=== PATIENT | female | born 1940 | race Caucasian/White ===

== ENCOUNTER 2016-04-08 14:44 | Inpatient (IN) | payer MEDICARE, BC ==
[~2016-04-08] VITALS: Ht 172.7 cm; Wt 129.7 kg
[2016-04-08] VITALS (9 sets, daily range): BP systolic 101–213; BP diastolic 51–99; PULSE 80–89; RESP 20–28; TEMP 100.4–101.2; O2SAT 82–97
[~2016-04-08 14:44] MED LIST: ALLO300T2 PO; CELE200C PO; CLOP75 PO; DIGO0.25 PO; LANTUS2P SC; LESC80TA PO; LISI-357 PO; LOPR100T PO; MIRA0.5T PO; SMZ-800T PO; TORS1TAB12 PO; VICT18IN SQ; WARF3TAB PO; Z.0.OXYGEN INH
[2016-04-08] MEDS ORDERED: SODIUM CHLORIDE 0.9% FLUSH 5 ML FLUSH IVF PRN ×2 (15:00→18:15)
[2016-04-08] MEDS ORDERED: NITROGLYCERIN 2% OINT 1 GM PACKET TOP ONE (15:15)
--- NOTE | 2016-04-08 15:37 | PD ---
HPI Chief Complaint: Dizziness Time Seen by Provider: 15:34 Travel History International Travel<30 days: No Contact w/Intl Traveler<30days: No Traveled to known affect area: No History of Present Illness HPI Patient doesn't complain of shortness of breath that began shortly after getting home from her doctor's office today. Patient she was seen for a regular checkup. This worsened vomit once. Patient denies any diaphoresis, headache, numbness tingling anywhere, abdominal pain, or back pain. Patient denies anything making it better or worse. PFSH Past Medical History Cancer: No Cardiovascular Problems: Yes (CHF) High Cholesterol: Yes Chest Pain: No Diabetes: Yes Deep Vein Thrombosis: Yes Gastrointestinal Disorders: No Glaucoma: No Hepatitis: No Hiatal Hernia: Yes Hypertension: Yes Respiratory: Yes (SLEEP APNEA) Integumentary: No Thyroid Disease: No Menopausal: Yes Past Surgical History Cholecystectomy: Yes Thoracic Surgery: No Social History Alcohol Use: No Tobacco Use: No Allergies-Medications (Allergen,Severity, Reaction): Coded Allergies: Mercurial Derivatives (Verified Allergy, Severe, 03/12/14) Thorazine (Verified Allergy, Severe, 03/12/14) Penicillin (Verified Allergy, Intermediate, Rash, 03/12/14) Reported Meds & Prescriptions Reported Meds & Active Scripts Active Reported Celebrex (Celecoxib) 200 Mg Cap 200 Mg PO DAILY Smz-Tmp Ds (Sulfamethoxazole-Trimethoprim) 1 Tab Tab 1 Tab PO BID Lantus (Insulin Glargine) 100 Units/Ml Inj 80 Unit SC HS Victoza (Liraglutide) 18 Mg/3 Ml Inj 18 Mg SQ DAILY Digoxin 0.25 mg (Digoxin) 0.25 Mg Tab 0.25 Mg PO DAILY Torsemide 20 Mg Tab 20 Mg PO BID Lisinopril 5 mg (Lisinopril) 5 Mg Tab 20 Mg PO BID Oxygen (O2) (Miscellaneous Medication) Inha 2 L INH DIRECTED Allopurinol 300 Mg Tab 300 Mg PO DAILY Lescol XL (Fluvastatin Sodium) 80 Mg Tab 80 Mg PO HS Warfarin Sodium 3 mg (Warfarin Sodium) 3 Mg Tab 3 Mg PO DAILY Mirapex (Pramipexole Dihydrochloride) 0.5 Mg Tab 0.5 Mg PO BID Plavix (Clopidogrel Bisulfate) 75 Mg Tab 75 Mg PO DAILY Lopressor (Metoprolol Tartrate) 100 Mg Tab 100 Mg PO BID Review of Systems Except as stated in HPI: all other systems reviewed are Neg Physical Exam Narrative GENERAL: Well-developed, overly nourished, in no acute distress, and non-ill appearing. SKIN: Warm and dry. 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 HEAD: Atraumatic. Normocephalic. EYES: Pupils equal and round. EOMI. No scleral icterus. No injection or drainage. ENT: No nasal bleeding or discharge. Mucous membranes pink and moist. NECK: Trachea midline. Supple. No nuclear rigidity. CARDIOVASCULAR: Regular rate and rhythm. No murmur appreciated. RESPIRATORY: Accessory muscle use. Respiratory distress. Decreased breath sounds throughout. Breath sounds equal bilaterally. MUSCULOSKELETAL: No obvious deformities. No clubbing. No cyanosis. Edema bilateral lower extremities. Full range of motion. NEUROLOGICAL: Awake and alert. No obvious cranial nerve deficits. Motor grossly within normal limits. Normal speech. PSYCHIATRIC: Appropriate mood and affect; insight and judgment normal. Data Data Last Documented VS Vital Signs Date Time Temp Pulse Resp B/P Pulse Ox O2 Delivery O2 Flow Rate FiO2 04/08/16 14:50 100.4 82 24 213/98 82 Orders Complete Blood Count With Diff (04/08/16 14:55) Comprehensive Metabolic Panel (04/08/16 14:55) B-Type Natriuretic Peptide (04/08/16 14:55) Act Partial Throm Time (Ptt) (04/08/16 14:55) Prothrombin Time / Inr (Pt) (04/08/16 14:55) Magnesium (Mg) (04/08/16 14:55) Ckmb (Isoenzyme) Profile (04/08/16 14:55) Troponin I (04/08/16 14:55) Iv Access Insert/Monitor (04/08/16 14:55) Electrocardiogram (04/08/16 14:55) Ecg Monitoring (04/08/16 14:55) Oximetry (04/08/16 14:55) Oxygen Administration (04/08/16 14:55) Chest, Single Ap (04/08/16 14:55) Sodium Chloride 0.9% Flush (Ns Flush) (04/08/16 15:00) Resp Bipap / Cpap Non Invas Vt (04/08/16 14:55) Act Partial Throm Time (Ptt) (04/08/16 15:01) Influenzae A/B Antigen (04/08/16 15:01) Nitroglycerin 2% Oint (Nitroglycerin 2% (04/08/16 15:15) Arterial Blood Gas (Abg) (04/08/16 15:31) Lactic Acid Sepsis Protocol (04/08/16 15:31) Blood Culture (04/08/16 15:31) MDM Medical Decision Making Medical Screen Exam Complete: Yes Emergency Medical Condition: Yes Differential Diagnosis CHF, COPD exacerbation, acute AK, pneumonia, other Narrative Course Patient seen and examined. Initial laboratory and radiological studies were ordered. Patient signed out to Dr. Alfaro. Please see her documentation for final diagnosis and disposition. Chris Bonilla Apr 08, 2016 15:37
[2016-04-08 15:42] LABS: AUTOMATED NEUTROPHIL # 15.5 TH/MM3 (1.8-7.7); BASOPHIL # 0.1 TH/MM3 (0-0.2); BASOPHIL % 0.4 % (0.0-2.0); EOSINOPHIL % 0.1 % (0.0-4.0); HEMATOCRIT 54.3 % (35.0-46.0); LYMPH % 1.5 % (9.0-44.0); LYMPHOCYTE # 0.2 TH/MM3 (1.0-4.8); MEAN CELL VOLUME 74.5 FL (80.0-100.0); MEAN CORPUSCULAR HEMOGLOBIN 22.9 PG (27.0-34.0); MEAN CORPUSCULAR HGB CONC 30.8 % (32.0-36.0); MONO % 3.2 % (0.0-8.0); NEUT % 94.8 % (16.0-70.0); PLATELET COUNT 208 TH/MM3 (150-450); RED BLOOD COUNT 7.29 MIL/MM3 (4.00-5.30); RED CELL DISTRIBUTION WIDTH 19.7 % (11.6-17.2); WHITE BLOOD COUNT 16.4 TH/MM3 (4.0-11.0)
[2016-04-08 15:45] LABS: HEMO FLAGS AUTO DIFF
--- NOTE | 2016-04-08 15:53 | RADRPT ---
EXAM DATE/TIME: 04/08/2016 15:31 [facility] COMPARISON: CHEST SINGLE AP, March 12, 2014, 16:34. INDICATIONS : Short of breath. MEDICAL HISTORY : unobtainable SURGICAL HISTORY : unobtainable ENCOUNTER: Initial ACUITY: 3 days PAIN SCORE: 2/10 LOCATION: Bilateral upper chest FINDINGS: A single view of the chest demonstrates the lungs to be symmetrically aerated without evidence of mas s, infiltrate or effusion. The cardiomediastinal contours are unremarkable. Osseous structures are intact. Relative to prior examination there is diminished inspiratory effort yielding the appearance of slightly prominent sohan. CONCLUSION: No acute disease. Kenn Colin MD on April 08, 2016 at 15:51 Board Certified Radiologist. This report was verified electronically.
[2016-04-08 15:56] LABS: APTT (PATIENT) 39.2 SEC (24.3-30.1); INTERNATIONAL NORMALIZED RATIO 3.1 RATIO; PROTHROMBIN TIME - PATIENT 35.9 SEC (9.8-11.6)
[2016-04-08 16:09] LABS: BLOOD GAS BASE EXCESS 2.6 mmol/L (-2-2); BLOOD GAS CARBOXYHEMOGLOBIN 2.4 % (0-4); BLOOD GAS HCO3 27 mmol/L (22-26); BLOOD GAS O2 HGB SATURATION 89 % (90-100); BLOOD GAS OXYGEN CONTENT 21.7 Vol % (12.0-20.0); BLOOD GAS PCO2 42 mmHg (38-42); BLOOD GAS PO2 65 mmHG (61-120); BLOOD GAS TOTAL HGB 17.5 G/DL (12.0-16.0); TEMP CORR TO 98.6
[2016-04-08 16:10] LABS: CRITICAL VALUE YES; OXYGEN DEVICE VENT; VENT SETTINGS BIPAP 10 IPAP/5EPAP
[2016-04-08 16:11] LABS: ALKALINE PHOSPHATASE 73 U/L (45-117); ALT (GPT) 23 U/L (10-53); ANION GAP 5 MEQ/L (5-15); AST (GOT) 37 U/L (15-37); BICARBONATE 31.8 MEQ/L (21.0-32.0); BLOOD UREA NITROGEN 30 MG/DL (7-18); CHLORIDE 101 MEQ/L (98-107); GLOMERULAR FILTRATION RATE 41 ML/MIN (>89); MAGNESIUM 1.8 MG/DL (1.5-2.5); POTASSIUM 5.4 MEQ/L (3.5-5.1); SODIUM (NA) 138 MEQ/L (136-145); TOTAL BILIRUBIN ADULT 0.8 MG/DL (0.2-1.0)
[2016-04-08 16:11] LABS: DRAW SITE RT RADIAL; FIO2 40 %; NUMBER OF ARTERIAL PUNCTURES 1; STAT YES; ULNAR PULSE PRESENT
--- NOTE | 2016-04-08 16:11 | PD ---
Physical Exam Time Seen by Provider: 16:05 Narrative 75-year-old female with a history of CHF, A. fib anticoagulated on Coumadin, hypertension, diabetes presents to the emergency department by EMS for evaluation of shortness of breath. The patient states that this afternoon she began to have worsening shortness of breath. States that she saw her PCP this morning for a regularly scheduled appointment and was feeling fine at that time. States that this afternoon she began to feel much worse feeling short of breath and fatigued. She admits that she has had a productive cough for the past 3-4 weeks. She vomited once at home today. She denies fever, chills, nausea, abdominal pain, chest pain. No other complaints. When EMS arrived the patient's oxygen saturation was around 80% on room air. She was initially seen in ambulance [place] by Jimy Bonilla PA-C who placed patient on bipap and initiated work-up. GENERAL: Well-nourished and well-developed morbidly obese female with bipap in place, no acute distress. SKIN: Warm and dry. HEAD: Normocephalic and atraumatic. uses. EYES: No injection, drainage, or hyphema noted. PERRLA. EOMI. ENT: No nasal drainage noted. Oropharynx is clear. NECK: Supple and the trachea is midline. CARDIOVASCULAR: Regular rate and rhythm. RESPIRATORY: Decreased breath sounds at bases. No accessory muscle use, wheezing, rhonchi, or crackles. GASTROINTESTINAL: Abdomen is soft, non-tender, and nondistended. MUSCULOSKELETAL: Bilateral lower extremity edema. No obvious deformities, cyanosis, or ecchymosis is present throughout the upper and lower extremities. Patient has full range of motion without any signs of neurovascular compromise. NEUROLOGICAL: Awake, alert, and oriented. Normal speech and gait. Cranial nerves are grossly intact. Data Data Last Documented VS Vital Signs Date Time Temp Pulse Resp B/P Pulse Ox O2 Delivery O2 Flow Rate FiO2 04/08/16 15:34 20 97 BiPAP 04/08/16 14:50 100.4 82 213/98 Orders Complete Blood Count With Diff (04/08/16 14:55) Comprehensive Metabolic Panel (04/08/16 14:55) B-Type Natriuretic Peptide (04/08/16 14:55) Act Partial Throm Time (Ptt) (04/08/16 14:55) Prothrombin Time / Inr (Pt) (04/08/16 14:55) Magnesium (Mg) (04/08/16 14:55) Ckmb (Isoenzyme) Profile (04/08/16 14:55) Troponin I (04/08/16 14:55) Iv Access Insert/Monitor (04/08/16 14:55) Electrocardiogram (04/08/16 14:55) Ecg Monitoring (04/08/16 14:55) Oximetry (04/08/16 14:55) Oxygen Administration (04/08/16 14:55) Chest, Single Ap (04/08/16 14:55) Sodium Chloride 0.9% Flush (Ns Flush) (04/08/16 15:00) Resp Bipap / Cpap Non Invas Vt (04/08/16 14:55) Act Partial Throm Time (Ptt) (04/08/16 15:01) Influenzae A/B Antigen (04/08/16 15:01) Nitroglycerin 2% Oint (Nitroglycerin 2% (04/08/16 15:15) Arterial Blood Gas (Abg) (04/08/16 15:31) Lactic Acid Sepsis Protocol (04/08/16 15:31) Blood Culture (04/08/16 15:31) Aztreonam Inj (Azactam Inj) (04/08/16 16:01) Vancomycin Inj (Vancomycin Inj) (04/08/16 16:15) Acetaminophen (Tylenol) (04/08/16 16:45) Furosemide Inj (Lasix Inj) (04/08/16 17:45) Admit Order (Ed Use Only) (04/08/16 17:31) Labs Laboratory Tests Test 04/08/16 04/08/16 04/08/16 15:15 15:45 15:58 White Blood Count 16.4 TH/MM3 Red Blood Count 7.29 MIL/MM3 Hemoglobin 16.7 GM/DL Hematocrit 54.3 % Mean Corpuscular Volume 74.5 FL Mean Corpuscular Hemoglobin 22.9 PG Mean Corpuscular Hemoglobin 30.8 % Concent Red Cell Distribution Width 19.7 % Platelet Count 208 TH/MM3 Mean Platelet Volume 8.9 FL Neutrophils (%) (Auto) 94.8 % Lymphocytes (%) (Auto) 1.5 % Monocytes (%) (Auto) 3.2 % Eosinophils (%) (Auto) 0.1 % Basophils (%) (Auto) 0.4 % Neutrophils # (Auto) 15.5 TH/MM3 Lymphocytes # (Auto) 0.2 TH/MM3 Monocytes # (Auto) 0.5 TH/MM3 Eosinophils # (Auto) 0.0 TH/MM3 Basophils # (Auto) 0.1 TH/MM3 CBC Comment AUTO DIFF Differential Total Cells 100 Counted Neutrophils % (Manual) 82 % Band Neutrophils % 14 % Lymphocytes % 1 % Monocytes % 1 % Eosinophils % 2 % Neutrophils # (Manual) 15.7 TH/MM3 Differential Comment FINAL DIFF MANUAL Platelet Estimate NORMAL Platelet Morphology Comment NORMAL Prothrombin Time 35.9 SEC Prothromb Time International 3.1 RATIO Ratio Activated Partial 39.2 SEC 39.2 SEC Thromboplast Time Sodium Level 138 MEQ/L Potassium Level 5.4 MEQ/L Chloride Level 101 MEQ/L Carbon Dioxide Level 31.8 MEQ/L Anion Gap 5 MEQ/L Blood Urea Nitrogen 30 MG/DL Creatinine 1.26 MG/DL Estimat Glomerular Filtration 41 ML/MIN Rate Random Glucose 160 MG/DL Calcium Level 8.9 MG/DL Magnesium Level 1.8 MG/DL Total Bilirubin 0.8 MG/DL Aspartate Amino Transf 37 U/L (AST/SGOT) Alanine Aminotransferase 23 U/L (ALT/SGPT) Alkaline Phosphatase 73 U/L Total Creatine Kinase 80 U/L Troponin I 0.02 NG/ML B-Type Natriuretic Peptide 633 PG/ML Total Protein 7.7 GM/DL Albumin 3.2 GM/DL Lactic Acid Level 1.5 mmol/L Blood Gas Puncture Site RT RADIAL Blood Gas Patient Temperature 98.6 Blood Gas HCO3 27 mmol/L Blood Gas Base Excess 2.6 mmol/L Blood Gas Oxygen Saturation 89 % Arterial Blood pH 7.42 Arterial Blood Partial 42 mmHg Pressure CO2 Arterial Blood Partial 65 mmHG Pressure O2 Arterial Blood Oxygen Content 21.7 Vol % Arterial Blood 2.4 % Carboxyhemoglobin Arterial Blood Methemoglobin 2.0 % Blood Gas Hemoglobin 17.5 G/DL Oxygen Delivery Device VENT Blood Gas Ventilator Setting BIPAP 10 IPAP/5EPAP Blood Gas Inspired Oxygen 40 % MDM Supervised Visit with RAMIN: No Differential Diagnosis CHF exacerbation versus pneumonia versus viral illness versus ACS versus other Narrative Course 75-year-old female is brought to the emergency room by EMS for evaluation of shortness of breath. Patient has a low-grade temperature of 100.4F here in the emergency department. Her initial oxygen saturation is 82% on room air. She was placed on BiPAP which brought her oxygen saturation back up to the low 90s. She is initially hypertensive with a blood pressure of 213/98. Nitroglycerin paste was placed. Chest x-ray is read by radiology as negative with poor inspiratory effort. CBC shows elevated white blood cell count of 16.4, slightly elevated hemoglobin and hematocrit. Differential shows 14% band neutrophils. INR is therapeutic at 3.1 CMP shows mild hyperkalemia with a potassium of 5.4. Mild renal insufficiency with a creatinine of 1.26, BUN 30, GFR 41. Troponin is 0.02. BNP is 633. Lactic acid is 1.5. ABG shows hypoxia with oxygen saturation of 89% on Bipap. Patient is given Azactam and vancomycin IV empirically. Patient is reassessed and has had improvement of shortness of breath while on bipap, her oxygen saturation has remained around 93-95%. Her temperature has increased to 101.2 F, heart rate 79 bpm, blood pressure 176/99. The patient has sepsis likely secondary to respiratory source and will be admitted to the [facility] service. I discussed the case with my attending physician Dr. Alfaro who is aware of the patients history, physical examination findings, and treatment plan. Sepsis Criteria SIRS Criteria (2 or more): Temp > 100.9 or < 96.8, WBC > 79039, < 4000 or > 10 % bands Sepsis Criteria (SIRS+source): Infect source susp/known Physician Communication Physician Communication Dr. Alfaro spoke with Dr. Hurt grape crusher who agrees to admit the patient to his service. Diagnosis Primary Impression: Community acquired pneumonia Additional Impressions: Hypoxia Sepsis Qualified Code: A41.9 - Sepsis, due to unspecified organism CHF exacerbation Qualified Code: I50.9 - Acute on chronic congestive heart failure, unspecified congestive heart failure type Admitting Information Admitting Physician Requests: Admit Carmen Hunt Apr 08, 2016 16:11
[2016-04-08] MEDS ORDERED: VANCOMYCIN INJ 1,000 MG in SODIUM CHLOR 0.9% 250 ML INJ 250 ML IV ONE (16:15)
[2016-04-08 16:23] LABS: CREATINE KINASE 80 U/L (26-192)
[2016-04-08 16:24] LABS: BANDS 14 % (0-6); EOSINOPHILS 2 % (0-4); NEUTROPHIL # MANUAL DIFF 15.7 TH/MM3 (1.8-7.7); POLYS (SEG NEUTROPHILS) 82 % (16-70); WBC DIFF SAMPLE 100
[2016-04-08 16:25] LABS: PLATELET ESTIMATE SMEAR NORMAL (NORMAL); PLATELET MORPHOLOGY NORMAL (NORMAL); SCAN/DIFF FINAL DIFF MANUAL
[2016-04-08 16:44] LABS: APTT (PATIENT) 39.2 SEC (24.3-30.1)
[2016-04-08] MEDS ORDERED: ACETAMINOPHEN 500 MG CPLT PO ONE (16:45)
[2016-04-08] MEDS ORDERED: FUROSEMIDE 40 MG/4 ML VIAL IV PUSH ONE (17:45)
[2016-04-08] MEDS: AZTREONAM INJ 2,000 MG in SODIUM CHLORIDE 0.9% INJ 100 ML IV STA ×2 (17:54→18:41)
[2016-04-08] MEDS ORDERED: RESP: ALBUTEROL 2.5 MG/3 ML NEB (PRN) INH (18:15)
[2016-04-08] MEDS ORDERED: MORPHINE SULFATE 4 MG/ML INJ IV PRN (18:15)
[2016-04-08] MEDS ORDERED: CHLORHEXIDINE GLUCONATE 2 % 1 PACK (2 CLOTHS) TOP PRN (18:15)
[2016-04-08] MEDS ORDERED: MISCELLANEOUS NURSING INFORMATION XX SCH (18:15)
--- NOTE | 2016-04-08 18:17 | HHI.HP ---
[facility] Service Critical Care Medicine Primary Care Physician King Aj MD Admission Diagnosis SEPSIS, Hypoxia, CHF Exacerbation Diagnosis: (1) Acute hypoxemic respiratory failure Diagnosis: Principal (2) CHF exacerbation Diagnosis: Principal (3) Severe sepsis Diagnosis: Principal (4) Probable pneumonia Diagnosis: Principal (5) Chronic atrial fibrillation with RVR Diagnosis: Principal (6) History of CHF (congestive heart failure) Diagnosis: Secondary (7) Type 2 diabetes mellitus Diagnosis: Secondary (8) Hypertension Diagnosis: Secondary (9) Chronic anticoagulation Diagnosis: Secondary Chief Complaint: Shortness of breath CHF Sepsis Pneumonia Travel History International Travel<30 Days: No Contact w/Intl Traveler <30 Da: No Traveled to Known Affected Are: No Sepsis Criteria SIRS Criteria (2 or more): Temp > 100.9 or < 96.8, Heart rate over 90, RR > 20 or PaCO2 < 32, WBC > 80259, < 4000 or > 10% bands Sepsis Criteria (SIRS+source): Infect source susp/known Criteria Outcome: Meets severe sepsis criteria History of Present Illness Patient is a 75-year-old obese white female with history of congestive heart failure, A. fib anticoagulated on Coumadin, hypertension, diabetes presented to the emergency department with shortness of breath since afternoon today. She admits that she has had a productive cough for the past 3-4 weeks. When EMS arrived the patient's oxygen saturation was around 80% on room air. Patient has a low-grade temperature of 100.4F here in the emergency department. She was placed on BiPAP which brought her oxygen saturation back up to the low 90s. She is initially hypertensive with a blood pressure of 213/98. Nitroglycerin paste was placed. Chest x-ray showed early pulmonary edema and right perihilar fullness on my review. CBC shows elevated white blood cell count of 16.4, slightly elevated hemoglobin and hematocrit. Differential shows 14% band neutrophils. INR is therapeutic at 3.1. CMP - mild hyperkalemia with a potassium of 5.4. creatinine of 1.26, BUN 30, BNP is 633. Patient is given Azactam and vancomycin IV empirically. Tmax in ED was 101.2F, heart rate 79 bpm, blood pressure 176/99. I evaluated the patient in the ED. She is slightly tachypneic, appears ill on BiPAP. I will start IV Lasix, get 2 d echo and continue broad-spectrum antibiotics with Azactam and Flagyl Review of Systems ROS Limitations: Clinical Condition (on BiPAP) Past Family Social History Allergies: Coded Allergies: Mercurial Derivatives (Verified Allergy, Severe, 03/12/14) Thorazine (Verified Allergy, Severe, 03/12/14) Penicillin (Verified Allergy, Intermediate, Rash, 03/12/14) Past Medical History Congestive heart failure Atrial fibrillation on Coumadin Type 2 diabetes Hypertension Morbid obesity Past Surgical History Cholecystectomy Reported Medications Celebrex (Celecoxib) 200 Mg Cap 200 Mg PO DAILY Smz-Tmp Ds (Sulfamethoxazole-Trimethoprim) 1 Tab Tab 1 Tab PO BID Lantus (Insulin Glargine) 100 Units/Ml Inj 80 Unit SC HS Victoza (Liraglutide) 18 Mg/3 Ml Inj 18 Mg SQ DAILY Digoxin 0.25 mg (Digoxin) 0.25 Mg Tab 0.25 Mg PO DAILY Torsemide 20 Mg Tab 20 Mg PO BID Lisinopril 5 mg (Lisinopril) 5 Mg Tab 20 Mg PO BID Oxygen (O2) (Miscellaneous Medication) Inha 2 L INH DIRECTED Allopurinol 300 Mg Tab 300 Mg PO DAILY Lescol XL (Fluvastatin Sodium) 80 Mg Tab 80 Mg PO HS Warfarin Sodium 3 mg (Warfarin Sodium) 3 Mg Tab 3 Mg PO DAILY Mirapex (Pramipexole Dihydrochloride) 0.5 Mg Tab 0.5 Mg PO BID Plavix (Clopidogrel Bisulfate) 75 Mg Tab 75 Mg PO DAILY Lopressor (Metoprolol Tartrate) 100 Mg Tab 100 Mg PO BID Active Ordered Medications Reviewed Family History Noncontributory Social History Smoking quit 40 years ago No Alcohol use Physical Exam Vital Signs Vital Signs Date Time Temp Pulse Resp B/P Pulse Ox O2 Delivery O2 Flow Rate FiO2 04/08/16 15:34 20 97 BiPAP 04/08/16 15:34 97 BiPAP 04/08/16 14:50 100.4 82 24 213/98 82 Physical Exam GENERAL: Well-nourished and well-developed morbidly obese in moderate distress tachypneic on BiPAP SKIN: Warm and dry. HEAD: Normocephalic and atraumatic. EYES: CAROL ANN. ENT: No nasal drainage noted. BiPAP mask in place NECK: Supple and the trachea is midline. Unable to evaluate for JVD CARDIOVASCULAR: Irregular heart rate atrial fibrillation. No murmurs distant heart sounds RESPIRATORY: Decreased breath sounds at bases, few coarse basilar crackles and rhonchi. Scattered wheezes GASTROINTESTINAL: Abdomen is soft, non-tender, and nondistended. MUSCULOSKELETAL: Bilateral lower extremity edema. No obvious deformities, cyanosis, or ecchymosis is present throughout the upper and lower extremities. NEUROLOGICAL: Awake, alert, and oriented. Normal speech. No focal deficits Laboratory Laboratory Tests Test 04/08/16 04/08/16 04/08/16 15:15 15:45 15:58 White Blood Count 16.4 Red Blood Count 7.29 Hemoglobin 16.7 Hematocrit 54.3 Mean Corpuscular Volume 74.5 Mean Corpuscular Hemoglobin 22.9 Mean Corpuscular Hemoglobin 30.8 Concent Red Cell Distribution Width 19.7 Platelet Count 208 Mean Platelet Volume 8.9 Neutrophils (%) (Auto) 94.8 Lymphocytes (%) (Auto) 1.5 Monocytes (%) (Auto) 3.2 Eosinophils (%) (Auto) 0.1 Basophils (%) (Auto) 0.4 Neutrophils # (Auto) 15.5 Lymphocytes # (Auto) 0.2 Monocytes # (Auto) 0.5 Eosinophils # (Auto) 0.0 Basophils # (Auto) 0.1 CBC Comment AUTO DIFF Differential Total Cells 100 Counted Neutrophils % (Manual) 82 Band Neutrophils % 14 Lymphocytes % 1 Monocytes % 1 Eosinophils % 2 Neutrophils # (Manual) 15.7 Differential Comment FINAL DIFF MANUAL Platelet Estimate NORMAL Platelet Morphology Comment NORMAL Prothrombin Time 35.9 Prothromb Time International 3.1 Ratio Activated Partial 39.2 39.2 Thromboplast Time Sodium Level 138 Potassium Level 5.4 Chloride Level 101 Carbon Dioxide Level 31.8 Anion Gap 5 Blood Urea Nitrogen 30 Creatinine 1.26 Estimat Glomerular Filtration 41 Rate Random Glucose 160 Calcium Level 8.9 Magnesium Level 1.8 Total Bilirubin 0.8 Aspartate Amino Transf 37 (AST/SGOT) Alanine Aminotransferase 23 (ALT/SGPT) Alkaline Phosphatase 73 Total Creatine Kinase 80 Troponin I 0.02 B-Type Natriuretic Peptide 633 Total Protein 7.7 Albumin 3.2 Lactic Acid Level 1.5 Blood Gas Puncture Site RT RADIAL Blood Gas Patient Temperature 98.6 Blood Gas HCO3 27 Blood Gas Base Excess 2.6 Blood Gas Oxygen Saturation 89 Arterial Blood pH 7.42 Arterial Blood Partial 42 Pressure CO2 Arterial Blood Partial 65 Pressure O2 Arterial Blood Oxygen Content 21.7 Arterial Blood 2.4 Carboxyhemoglobin Arterial Blood Methemoglobin 2.0 Blood Gas Hemoglobin 17.5 Oxygen Delivery Device VENT Blood Gas Ventilator Setting BIPAP 10 IPAP/5EPAP Blood Gas Inspired Oxygen 40 Date/Time Procedure Status Source Growth 04/08/16 15:50 Influenza Types A,B Antigen (VADIM) - Final Complete Nasal Washing NEGATIVE FOR FLU A AND B ANTIGEN.... 04/08/16 15:45 Aerobic Blood Culture Received Blood Peripheral Pending 04/08/16 15:45 Anaerobic Blood Culture Received Blood Peripheral Pending Result Diagram: 04/08/16 1515 04/08/16 1515 Imaging Early pulmonary edema right sided infiltrate on my review Septic Shock Reassessment Heart: Irregular Lungs: Course Skin: Warm Peripheral Pulses: Bounding Right Radial Bounding Left Radial Capillary Refill: Brisk Assessment and Plan Assessment and Plan Acute hypoxemic respiratory failure CHF exacerbation Probable pneumonia Severe sepsis Uncontrolled hypertension Acute kidney insufficiency Atrial fibrillation with RVR Morbid obesity Chronic A. fib on Coumadin Type 2 diabetes Hypertension History of CHF PLAN: NEURO: -Minimize sedation, when necessary morphine for pain anxiety RESP: -Continue BiPAP 12 over 5. DuoNeb every 6 hours and when necessary -Broad spectrum antibiotics with Azactam and Flagyl -Sputum culture, check CT of the chest CV: -Clinical evidence of CHF exacerbation -Check 2-D echo, IV Lasix 40 mg 1 and 40 every 12 -Cycle cardiac enzymes GI: -NPO, IV Protonix : -Monitor renal function closely. Lee catheter. ID: -IV vancomycin and Azactam given in ED -Continue Azactam and Flagyl. -Check blood cultures sputum culture and urine culture HEME: -Monitor CBC, CMP, coags -Consult pharmacy for Coumadin dosing ENDO: -Electrolyte replacement per protocol -Sliding-scale insulin PROPH: -Bilateral lower extremity SCDs. Coumadin, Protonix LINES: -Utilize peripheral IVs, central line if needed CC time 45 min Code Status Full Discussed Condition With Dr. Alfaro Problem Qualifiers (1) CHF exacerbation: Qualified Code: I50.9 - Acute on chronic congestive heart failure, unspecified congestive heart failure type (2) Type 2 diabetes mellitus: (3) Hypertension: Qualified Code: I15.9 - Secondary hypertension Miranda Hurt MD Apr 08, 2016 18:17
[2016-04-08] MEDS ORDERED: LISI-515 PO (18:35)
[2016-04-08] MEDS ORDERED: WARF-20 PO (18:35)
[2016-04-08] MEDS ORDERED: HYDR-3533 PO (18:35)
[2016-04-08] MEDS ORDERED: TORS20TA PO (18:35)
[2016-04-08] MEDS ORDERED: LANTUS2P SQ (18:35)
[2016-04-08] MEDS ORDERED: LESC80TA PO (18:35)
[2016-04-08] MEDS ORDERED: HYDR12.57 PO (18:35)
[2016-04-08] MEDS ORDERED: FENO160T PO (18:35)
[2016-04-08] MEDS ORDERED: PLAV75TA29 PO (18:35)
[2016-04-08] MEDS ORDERED: GLUCAGON 1 MG/ML VIAL OTHER PRN (18:45)
[2016-04-08] MEDS ORDERED: DEXTROSE 50% IN WATER 50 ML VIAL(D50) IV PUSH PRN (18:45)
--- NOTE | 2016-04-08 19:13 | PD ---
Physical Exam Date Seen by Provider: Apr 08, 2016 Data Data Last Documented VS Vital Signs Date Time Temp Pulse Resp B/P Pulse Ox O2 Delivery O2 Flow Rate FiO2 04/08/16 17:00 101.2 83 28 176/99 93 BiPAP Orders Complete Blood Count With Diff (04/08/16 14:55) Comprehensive Metabolic Panel (04/08/16 14:55) B-Type Natriuretic Peptide (04/08/16 14:55) Act Partial Throm Time (Ptt) (04/08/16 14:55) Prothrombin Time / Inr (Pt) (04/08/16 14:55) Magnesium (Mg) (04/08/16 14:55) Ckmb (Isoenzyme) Profile (04/08/16 14:55) Troponin I (04/08/16 14:55) Iv Access Insert/Monitor (04/08/16 14:55) Electrocardiogram (04/08/16 14:55) Ecg Monitoring (04/08/16 14:55) Oximetry (04/08/16 14:55) Oxygen Administration (04/08/16 14:55) Chest, Single Ap (04/08/16 14:55) Sodium Chloride 0.9% Flush (Ns Flush) (04/08/16 15:00) Resp Bipap / Cpap Non Invas Vt (04/08/16 14:55) Act Partial Throm Time (Ptt) (04/08/16 15:01) Influenzae A/B Antigen (04/08/16 15:01) Nitroglycerin 2% Oint (Nitroglycerin 2% (04/08/16 15:15) Arterial Blood Gas (Abg) (04/08/16 15:31) Lactic Acid Sepsis Protocol (04/08/16 15:31) Blood Culture (04/08/16 15:31) Aztreonam Inj (Azactam Inj) (04/08/16 16:01) Vancomycin Inj (Vancomycin Inj) (04/08/16 16:15) Acetaminophen (Tylenol) (04/08/16 16:45) Furosemide Inj (Lasix Inj) (04/08/16 17:45) Admit Order (Ed Use Only) (04/08/16 17:31) Labs Laboratory Tests Test 04/08/16 04/08/16 04/08/16 15:15 15:45 15:58 White Blood Count 16.4 TH/MM3 Red Blood Count 7.29 MIL/MM3 Hemoglobin 16.7 GM/DL Hematocrit 54.3 % Mean Corpuscular Volume 74.5 FL Mean Corpuscular Hemoglobin 22.9 PG Mean Corpuscular Hemoglobin 30.8 % Concent Red Cell Distribution Width 19.7 % Platelet Count 208 TH/MM3 Mean Platelet Volume 8.9 FL Neutrophils (%) (Auto) 94.8 % Lymphocytes (%) (Auto) 1.5 % Monocytes (%) (Auto) 3.2 % Eosinophils (%) (Auto) 0.1 % Basophils (%) (Auto) 0.4 % Neutrophils # (Auto) 15.5 TH/MM3 Lymphocytes # (Auto) 0.2 TH/MM3 Monocytes # (Auto) 0.5 TH/MM3 Eosinophils # (Auto) 0.0 TH/MM3 Basophils # (Auto) 0.1 TH/MM3 CBC Comment AUTO DIFF Differential Total Cells 100 Counted Neutrophils % (Manual) 82 % Band Neutrophils % 14 % Lymphocytes % 1 % Monocytes % 1 % Eosinophils % 2 % Neutrophils # (Manual) 15.7 TH/MM3 Differential Comment FINAL DIFF MANUAL Platelet Estimate NORMAL Platelet Morphology Comment NORMAL Prothrombin Time 35.9 SEC Prothromb Time International 3.1 RATIO Ratio Activated Partial 39.2 SEC 39.2 SEC Thromboplast Time Sodium Level 138 MEQ/L Potassium Level 5.4 MEQ/L Chloride Level 101 MEQ/L Carbon Dioxide Level 31.8 MEQ/L Anion Gap 5 MEQ/L Blood Urea Nitrogen 30 MG/DL Creatinine 1.26 MG/DL Estimat Glomerular Filtration 41 ML/MIN Rate Random Glucose 160 MG/DL Calcium Level 8.9 MG/DL Magnesium Level 1.8 MG/DL Total Bilirubin 0.8 MG/DL Aspartate Amino Transf 37 U/L (AST/SGOT) Alanine Aminotransferase 23 U/L (ALT/SGPT) Alkaline Phosphatase 73 U/L Total Creatine Kinase 80 U/L Troponin I 0.02 NG/ML B-Type Natriuretic Peptide 633 PG/ML Total Protein 7.7 GM/DL Albumin 3.2 GM/DL Lactic Acid Level 1.5 mmol/L Blood Gas Puncture Site RT RADIAL Blood Gas Patient Temperature 98.6 Blood Gas HCO3 27 mmol/L Blood Gas Base Excess 2.6 mmol/L Blood Gas Oxygen Saturation 89 % Arterial Blood pH 7.42 Arterial Blood Partial 42 mmHg Pressure CO2 Arterial Blood Partial 65 mmHG Pressure O2 Arterial Blood Oxygen Content 21.7 Vol % Arterial Blood 2.4 % Carboxyhemoglobin Arterial Blood Methemoglobin 2.0 % Blood Gas Hemoglobin 17.5 G/DL Oxygen Delivery Device VENT Blood Gas Ventilator Setting BIPAP 10 IPAP/5EPAP Blood Gas Inspired Oxygen 40 % MDM Supervised Visit with RAMIN: Yes Narrative Course I, Dr. Alfaro, have reviewed the advance practice practitioner's documentation and am in agreement, met with the patient face to face, made the diagnosis, and the medical decision making was done by me. *My assessment and Findings: sepsis, pneumonia, hypoxia requiring BIPAP and ICU admission case reviewed with icu attending who accepts pt to service Critical Care Narrative Aggregate critical care time was 30 minutes. Time to perform other separately billable procedures was not included in the critical care time. My time did not include minutes spent treating any other patients simultaneously or on activities that did not directly contribute to the patient's treatment. The services I provided to this patient were to treat and/or prevent clinically significant deterioration that could result in: , decompensation, deterioration I provided critical care services requiring my management, as noted below: Chart data review, documentation time, medication orders and management, vital sign assessments/reviewing monitor data, ordering and reviewing lab tests, ordering and interpreting/reviewing x-rays and diagnostic studies, care of the patient and discussion of the patient with the admitting physicians. Diagnosis Primary Impression: Community acquired pneumonia Additional Impressions: Hypoxia Sepsis Qualified Code: A41.9 - Sepsis, due to unspecified organism CHF exacerbation Qualified Code: I50.9 - Acute on chronic congestive heart failure, unspecified congestive heart failure type Lila Alfaro DO Apr 08, 2016 19:13
[2016-04-08] MEDS: metroNIDAZOLE 500 MG INJ 100 ML IV SCH (19:33)
[2016-04-08] MEDS: INSULIN ASPART SUPPLEMENTAL SCALE SQ SCH (19:36)
[2016-04-08] MEDS: CHLORHEXIDINE 0.12% (ORAL KIT) 15 ML CUP MT SCH (20:00)
[2016-04-08] MEDS: SODIUM CHLORIDE 0.9% FLUSH 5 ML FLUSH IVF SCH (20:23)
[2016-04-08] MEDS: RESP: ALBUTEROL 2.5 MG/IPRATROPIUM 0.5 MG NEB (SCH) NEB (22:17)
--- NOTE | 2016-04-08 22:17 | RADRPT ---
EXAM DATE/TIME: 04/08/2016 21:14 [facility] COMPARISON: No previous studies available for comparison. INDICATIONS : Shortness of breath, evaluate for infiltrate. RADIATION DOSE: 19.37 CTDIvol (mGy) MEDICAL HISTORY : Cardiovascular disease. Hypertension. Diabetes mellitus type 2. SURGICAL HISTORY : None. ENCOUNTER: Initial ACUITY: 1 day PAIN SCALE: 0/10 LOCATION: chest TECHNIQUE: Volumetric scanning of the chest was performed. Using automated exposure control and adjustment of t he mA and/or kV according to patient size, radiation dose was kept as low as reasonably achievable to obtain optimal diagnostic quality images. FINDINGS: There is mild subsegmental airspace disease predominantly at the lung bases and mostly dependently. N o significant effusion. No pneumothorax. Global cardiomegaly. There is severe coronary artery calcifications. No acute findings in the upper abdomen. CONCLUSION: 1. Minimal subsegmental airspace disease at the lung bases. No significant pleural or pericardial eff usion. Cardiomegaly with severe coronary calcifications. Alvaro Gresham MD on April 08, 2016 at 22:11 Board Certified Radiologist. This report was verified electronically.
[2016-04-09] VITALS (16 sets, daily range): BP systolic 98–133; BP diastolic 60–73; PULSE 71–105; RESP 14–28; TEMP 97.9–100.3; O2SAT 90–98
[2016-04-09] MEDS: AZTREONAM INJ 2,000 MG in SODIUM CHLORIDE 0.9% INJ 100 ML IV SCH ×3 (02:01→19:29)
[2016-04-09 02:06] LABS: BLOOD, URINE SMALL (NEG); COMMENT (UR) CATH-CULTURE IND; CULTURE IF INDICATED CATH CULTURE IND; GLUCOSE,URINE NEG (NEG); GRANULAR CAST, URINE 4 /lpf; HYALINE CAST, URINE 88 /lpf (RARE); KETONE, URINE NEG (NEG); MUCUS URINE FEW /lpf (OCC); NITRITE,URINE NEG (NEG); SQUAMOUS EPITHELIAL CELL URINE 3 /hpf (0-5); URINE COLOR YELLOW (YELLW/STRAW)
[2016-04-09] MEDS: metroNIDAZOLE 500 MG INJ 100 ML IV SCH ×2 (03:20→12:35)
[2016-04-09] MEDS: CHLORHEXIDINE GLUCONATE 2 % 1 PACK (2 CLOTHS) TOP SCH (03:26)
[2016-04-09 03:34] LABS: AUTOMATED NEUTROPHIL # 28.4 TH/MM3 (1.8-7.7); BASOPHIL # 0.1 TH/MM3 (0-0.2); BASOPHIL % 0.2 % (0.0-2.0); HEMATOCRIT 46.4 % (35.0-46.0); LYMPH % 1.4 % (9.0-44.0); LYMPHOCYTE # 0.4 TH/MM3 (1.0-4.8); MEAN CELL VOLUME 73.4 FL (80.0-100.0); MEAN CORPUSCULAR HEMOGLOBIN 23.4 PG (27.0-34.0); MEAN CORPUSCULAR HGB CONC 31.8 % (32.0-36.0); MONO % 2.9 % (0.0-8.0); NEUT % 95.5 % (16.0-70.0); PLATELET COUNT 191 TH/MM3 (150-450); RED BLOOD COUNT 6.32 MIL/MM3 (4.00-5.30); RED CELL DISTRIBUTION WIDTH 20.2 % (11.6-17.2); WHITE BLOOD COUNT 29.7 TH/MM3 (4.0-11.0)
[2016-04-09 03:40] LABS: HEMO FLAGS AUTO DIFF
[2016-04-09 03:41] LABS: INTERNATIONAL NORMALIZED RATIO 2.6 RATIO; PROTHROMBIN TIME - PATIENT 29.4 SEC (9.8-11.6)
[2016-04-09 03:59] LABS: ALKALINE PHOSPHATASE 53 U/L (45-117); ALT (GPT) 24 U/L (10-53); ANION GAP 7 MEQ/L (5-15); AST (GOT) 43 U/L (15-37); BLOOD UREA NITROGEN 38 MG/DL (7-18); CHLORIDE 105 MEQ/L (98-107); GLOMERULAR FILTRATION RATE 33 ML/MIN (>89); MAGNESIUM 1.7 MG/DL (1.5-2.5); POTASSIUM 4.7 MEQ/L (3.5-5.1); SODIUM (NA) 142 MEQ/L (136-145); TOTAL BILIRUBIN ADULT 0.8 MG/DL (0.2-1.0)
[2016-04-09] MEDS: INSULIN ASPART SUPPLEMENTAL SCALE SQ SCH ×7 (04:00→23:54)
[2016-04-09 04:24] LABS: CKMB 7.2 NG/ML (0.5-3.6)
[2016-04-09] MEDS: RESP: ALBUTEROL 2.5 MG/IPRATROPIUM 0.5 MG NEB (SCH) NEB ×4 (04:29→20:52)
[2016-04-09 05:02] LABS: BANDS 37 % (0-6); BASOPHILS 1 % (0-2); METAMYELOCYTES 2 % (0-1); NEUTROPHIL # MANUAL DIFF 28.8 TH/MM3 (1.8-7.7); PLATELET ESTIMATE SMEAR NORMAL (NORMAL); PLATELET MORPHOLOGY NORMAL (NORMAL); POLYS (SEG NEUTROPHILS) 58 % (16-70); SCAN/DIFF FINAL DIFF MANUAL; WBC DIFF SAMPLE 100
[2016-04-09 05:03] LABS: DOHLE BODIES PRESENT (NONE SEEN); TOXIC GRANULATION 1+ (NORMAL); TOXIC VACUOLATION PRESENT (NONE SEEN)
--- NOTE | 2016-04-09 05:46 | RADRPT ---
EXAM DATE/TIME: 04/09/2016 04:50 [facility] COMPARISON: CT THORAX W/O CONTRAST, April 08, 2016, 21:14. CHEST SINGLE AP, April 08, 2016, 15:31. INDICATIONS : Respiratory failure. MEDICAL HISTORY : Diabetes mellitus type II. Cardiovascular disease. Hypertension. SURGICAL HISTORY : None. ENCOUNTER: Subsequent ACUITY: 2 days PAIN SCORE: Non-responsive. LOCATION: Bilateral chest FINDINGS: There continue to be bibasilar infiltrates which are mildly increased compared to the prior study. Th e heart size is stable. No overt pleural effusions are seen. There is no evidence of pneumothorax. Th ere does appear to be pulmonary venous congestion. Prominent pulmonary arteries bilaterally which are stable. CONCLUSION: Bibasilar infiltrates which are mildly increased compared to the prior study. Pulmonary venous conges tion. Bello Wiggins MD on April 09, 2016 at 5:43 Board Certified Radiologist. This report was verified electronically.
[2016-04-09] MEDS ORDERED: INFLUENZA VIRUS VACCINE (QUADRIVALENT) 0.5 ML SYR IM ONE (09:00)
[2016-04-09] MEDS ORDERED: FUROSEMIDE 40 MG/4 ML VIAL IV PUSH SCH (09:00)
[2016-04-09] MEDS: CLOPIDOGREL 75 MG TAB PO SCH (09:19)
[2016-04-09] MEDS: FUROSEMIDE 40 MG/4 ML VIAL IV PUSH SCH (09:20)
[2016-04-09] MEDS: PANTOPRAZOLE SODIUM 40 MG VIAL IV SCH (09:20)
[2016-04-09] MEDS: SODIUM CHLORIDE 0.9% FLUSH 5 ML FLUSH IVF SCH ×2 (09:21→20:08)
[2016-04-09] MEDS: CHLORHEXIDINE 0.12% (ORAL KIT) 15 ML CUP MT SCH ×2 (09:21→19:28)
[2016-04-09] MEDS ORDERED: POTASSIUM PHOSPHATE MONOBASIC 500 MG TAB PO PRN (12:30)
[2016-04-09] MEDS ORDERED: MAGNESIUM SULFATE INJ 2 GM in SODIUM CHLORIDE 0.9% INJ 96 ML IV PRN (12:30)
[2016-04-09] MEDS ORDERED: POTASSIUM CHLOR 20 MEQ PREMIX 100 ML IV PRN ×2 (12:30)
[2016-04-09] MEDS ORDERED: POTASSIUM PHOSPHATE MONOBASIC 500 MG TAB PO/TUBE PRN (12:30)
[2016-04-09] MEDS ORDERED: POTASSIUM CHLOR 40 MEQ PREMIX 100 ML IV PRN ×2 (12:30)
[2016-04-09] MEDS ORDERED: SODIUM PHOSPHATE INJ 30 MMOL in SODIUM CHLOR 0.9% 250 ML INJ 240 ML IV PRN (12:30)
[2016-04-09] MEDS ORDERED: POTASSIUM PHOSPHATE INJ 30 MMOL in SODIUM CHLOR 0.9% 250 ML INJ 250 ML IV PRN (12:30)
[2016-04-09] MEDS ORDERED: MAGNESIUM OXIDE 400 MG TAB PO PRN (12:30)
[2016-04-09] MEDS ORDERED: MAGNESIUM SULFATE INJ 4 GM in SODIUM CHLORIDE 0.9% INJ 92 ML IV PRN (12:30)
[2016-04-09] MEDS ORDERED: POTASSIUM CL 40 MEQ/30 ML LIQ UDC PO/TUBE PRN ×2 (12:30)
[2016-04-09] MEDS ORDERED: Vancomycin Consult Pharmacy 1 EA OTHER SCH (13:15)
--- NOTE | 2016-04-09 15:16 | PD.ID.CON ---
History of Present Illness Service ID Consult Requested By Dr. Hurt Reason for Consult Evaluation and Mment of Severe Sepsis and Gram positive bacteremia. Primary Care Physician King Aj MD Diagnoses: History of Present Illness is a 75 y/o morbidly obese CF with history of CHF,A. fib anticoagulated on Coumadin, hypertension, diabetes presented to the emergency department with shortness of breath that started on the afternoon prior to admission. She admits that she has had a productive cough for the past 3-4 weeks. When EMS arrived the patient's oxygen saturation was around 80% on room air. Patient has a low-grade temperature of 100.4F here in the emergency department. She was placed on BiPAP which brought her oxygen saturation back up to the low 90s. She is initially hypertensive with a blood pressure of 213/ 98. Nitroglycerin paste was placed. Chest x-ray showed early pulmonary edema. CBC with elevated white blood cell count of 16.4, differential shows 14% band neutrophils. INR is therapeutic at 3.1. CMP - mild hyperkalemia with a potassium of 5.4. creatinine of 1.26, BUN 30, BNP is 633. Patient was started on Azactam and vancomycin IV empirically. Tmax in ED was 101.2F, heart rate 79 bpm, blood pressure 176/99. Critical care was consulted and patient admitted to the ICU. Patient remained on BiPAP and eventually BiPAP was discontinued patient is currently on room air. Her MAXIMUM TEMPERATURE is 101.2 and her blood cultures are now positive for gram-positive cocci possibly strep B and infectious disease consult for the same. Pertinent positives and negatives: Patient gives history of left lower molar pain. She reports that she had the tooth level down but she still has a piece of tooth remaining that has been bothering her. Reports chronic constipation but no GI bleed. She reports her PCP asked her to see GI but she got sick. She has had guzman endoscopy many years back and were negative for malignancy. Her brother had Colon cancer. She also reports bilateral LE swelling, chronic skin changes off and on for many years. Review of Systems Constitutional: COMPLAINS OF: Fever, Chills, DENIES: Diaphoretic episodes, Fatigue, Weight gain, Weight loss, Dizziness, Change in appetite, Night Sweats Endocrine: DENIES: Abnorml menstrual pattern, Heat/cold intolerance, Polydipsia , Polyuria, Polyphagia Eyes: DENIES: Blurred vision, Diplopia, Eye inflammation, Eye pain, Vision loss , Photosensitivity, Double Vision Ears, nose, mouth, throat: DENIES: Tinnitus, Hearing loss, Vertigo, Nasal discharge, Oral lesions, Throat pain, Hoarseness, Ear Pain, Running Nose, Epistaxis, Sinus Pain, Toothache, Odynophagia Respiratory: DENIES: Apneas, Cough, Snoring, Wheezing, Hemoptysis, Sputum production, Shortness of breath Cardiovascular: DENIES: Chest pain, Palpitations, Syncope, Dyspnea on Exertion , PND, Lower Extremity Edema, Orthopnea, Claudication Gastrointestinal: COMPLAINS OF: Constipation, DENIES: Abdominal pain, Black stools, Bloody stools, Diarrhea, Nausea, Vomiting, Difficulty Swallowing, Anorexia Genitourinary: DENIES: Abnormal vaginal bleeding, Dysmenorrhea, Dyspareunia, Sexual dysfunction, Urinary frequency, Urinary incontinence, Urgency, Hematuria , Dysuria, Nocturia, Vaginal discharge Musculoskeletal: COMPLAINS OF: Joint pain (left ankle), DENIES: Muscle aches, Stiffness, Joint Swelling, Back pain, Neck pain Integumentary: COMPLAINS OF: Abnormal pigmentation, Rash, DENIES: Pruritus, Nail changes, Breast masses, Breast skin changes, Nipple discharge Hematologic/lymphatic: DENIES: Bruising, Lymphadenopathy Immunologic/allergic: DENIES: Eczema, Urticaria Neurologic: DENIES: Abnormal gait, Headache, Localized weakness, Paresthesias, Seizures, Speech Problems, Tremor, Poor Balance Psychiatric: DENIES: Anxiety, Confusion, Mood changes, Depression, Hallucinations, Agitation, Suicidal Ideation, Homicidal Ideation, Delusions Past Family Social History Allergies: Coded Allergies: Mercurial Derivatives (Verified Allergy, Severe, 03/12/14) Thorazine (Verified Allergy, Severe, 03/12/14) Penicillin (Verified Allergy, Intermediate, Rash, 03/12/14) Past Medical History Congestive heart failure Atrial fibrillation on Coumadin Type 2 diabetes Hypertension Morbid obesity Past Surgical History Cholecystectomy. Right thigh/knee kandi placement Reported Medications Reported Meds & Active Scripts Active Reported Lortab (Hydrocodone-Acetaminophen) 5-325 Mg Tab 1 Tab PO Q4-6H PRN Fenofibrate 160 Mg Tab 160 Mg PO HS Hydrochlorothiazide 12.5 Mg Cap 12.5 Mg PO DAILY PRN Warfarin 4 Mg Tab 4 Mg PO DAILY@1600 Torsemide 20 Mg Tab 20 Mg PO BID Lisinopril 20 Mg Tab 20 Mg PO BID Lantus Inj (Insulin Glargine) 1,000 Unit/10 Ml Vial 45 Units SQ HS Lescol XL (Fluvastatin Sodium) 80 Mg Nadia 80 Mg PO HS Plavix (Clopidogrel Bisulfate) 75 Mg Tab 75 Mg PO DAILY Active Ordered Medications Current Medications Medications (Trade) Dose Ordered Sig/Justin Route Start Time Stop Time Status Last Admin (NS Flush) 2 ml UNSCH PRN IVF 04/08/16 18:15 (NS Flush) 2 ml BID IVF 04/08/16 21:00 04/09/16 09:21 (Morphine Inj) 2 mg Q2H PRN IV 04/08/16 18:15 (Peridex 0.12% Liq) 15 ml BID@08,20 MT 04/08/16 20:00 04/09/16 09:21 (Protonix Inj) 40 mg DAILY IV 04/09/16 09:00 04/09/16 09:20 Miscellaneous Information 1 Q361D XX 04/08/16 18:15 04/09/16 15:49 (Chlorhexidine 2% Cloth) 3 pack Taper DAILY@04 TOP 04/09/16 04:00 04/05/17 03:59 04/09/16 03:26 Chlorhexidine Gluconate 3 pack 3 pack UNSCH PRN TOP 04/08/16 18:15 (Azactam Inj/NS Inj) 100 ml @ 200 mls/hr Q8H IV 04/09/16 02:00 04/09/16 09:21 (Lasix Inj) 40 mg DAILY IV PUSH 04/09/16 09:00 04/09/16 09:20 Insulin Aspart 1 1 Q4HR SQ 04/08/16 20:00 04/09/16 00:00 (Coumadin Consult Pharmacy) 0 ml @ 0 mls/hr UNSCH OTHER 04/08/16 18:30 (D50w (Vial) Inj) 25 ml UNSCH PRN IV PUSH 04/08/16 18:45 Glucagon 1 mg 1 mg UNSCH PRN OTHER 04/08/16 18:45 (Flagyl 500 Mg Inj) 100 ml @ 100 mls/hr Q8H IV 04/08/16 20:00 04/09/16 12:35 (Plavix) 75 mg DAILY PO 04/09/16 09:00 04/09/16 09:19 (Tricor) 145 mg HS PO 04/09/16 21:00 (Pravachol) 80 mg HS PO 04/09/16 21:00 (Fombell 5-325 Mg) 1 tab Q6H PRN PO 04/09/16 06:45 (Coumadin) 3 mg DAILY@1600 PO 04/09/16 16:00 Nystatin 1 applic 1 applic Q12HR TOPICAL 04/09/16 14:00 04/09/16 15:48 Potassium Chloride 100 ml @ 50 mls/hr Q2H PRN IV 04/09/16 12:30 (KCl 20 Meq Premix Inj) 100 ml @ 50 mls/hr Q2H PRN IV 04/09/16 12:30 Potassium Chloride 40 meq 40 meq UNSCH PRN PO/TUBE 04/09/16 12:30 Potassium Chloride 100 ml @ 25 mls/hr UNSCH PRN IV 04/09/16 12:30 Potassium Chloride 100 ml @ 50 mls/hr Q2H PRN IV 04/09/16 12:30 (Magnesium Sulfate Inj/NS Inj) 100 ml @ 50 mls/hr UNSCH PRN IV 04/09/16 12:30 Magnesium Oxide 800 mg 800 mg UNSCH PRN PO 04/09/16 12:30 (Magnesium Sulfate Inj/NS Inj) 100 ml @ 50 mls/hr UNSCH PRN IV 04/09/16 12:30 Potassium Phosphate 2000 mg 2,000 mg Q4H PRN PO 04/09/16 12:30 (Sodium Phosphate Inj/NS 250 ml Inj) 250 ml @ 42 mls/hr UNSCH PRN IV 04/09/16 12:30 (KCl 40 Meq/30 ml Liq) 40 meq UNSCH PRN PO/TUBE 04/09/16 12:30 Potassium Phosphate 2000 mg 2,000 mg UNSCH PRN PO/TUBE 04/09/16 12:30 Potassium Phosphate 30 mmol/ Sodium Chloride 260 ml @ 42 mls/hr UNSCH PRN IV 04/09/16 12:30 Pharmacy Profile Note 0 ml @ 0 mls/hr UNSCH OTHER 04/09/16 13:15 Vancomycin HCl 1750 mg/Sodium Chloride 517.5 ml @ 250 mls/hr Q24H IV 04/09/16 16:00 (Magnesium Sulfate Inj/NS Inj) 100 ml @ 50 mls/hr NOW ONCE IV 04/09/16 15:30 04/09/16 17:29 04/09/16 15:48 Miscellaneous Information SPECIFIC LAB TO BE DRAWN:VANCOMYCIN TROUGH DATE TO... ONCE ONCE XX 04/11/16 15:45 04/11/16 15:46 Family History Brother Colon Cancer Social History Smoking quit 40 years ago, No Alcohol use. Used to live in [place] moved here several years back. No illicit drug use. Physical Exam Vital Signs Vital Signs Date Time Temp Pulse Resp B/P Pulse Ox O2 Delivery O2 Flow Rate FiO2 04/09/16 13:10 93 Nasal Cannula 4.00 04/09/16 13:07 93 Nasal Cannula 4.00 04/09/16 12:00 93 04/09/16 12:00 100.3 93 23 133/66 94 04/09/16 08:45 93 Venturi Mask 50 04/09/16 08:30 92 Venturi Mask 6.00 50 04/09/16 08:30 88 Nasal Cannula 5.00 04/09/16 08:00 79 04/09/16 08:00 98.8 79 27 110/62 94 04/09/16 07:00 93 Bi-Pap 60 04/09/16 04:34 98 40 04/09/16 04:00 97.9 76 14 120/73 97 04/09/16 04:00 76 04/09/16 02:00 71 04/09/16 02:00 98.0 74 14 118/64 97 04/09/16 01:30 94 60 04/09/16 01:23 74 20 98/61 94 BiPAP 04/09/16 01:17 96 04/09/16 00:00 92 50 04/08/16 23:30 86 20 101/60 93 BiPAP 04/08/16 22:34 80 20 102/56 92 BiPAP 04/08/16 21:15 86 20 101/57 93 BiPAP 04/08/16 20:26 88 22 105/57 92 BiPAP 04/08/16 19:18 80 20 101/51 92 BiPAP 04/08/16 18:45 89 26 128/69 94 BiPAP 04/08/16 17:00 101.2 83 28 176/99 93 BiPAP 04/08/16 15:34 97 50 04/08/16 15:34 20 97 BiPAP 04/08/16 15:34 97 BiPAP Physical Exam GENERAL: Obese CF patient, in no apparent distress. SKIN: No generalized rashes. Rest per LE exam. HEAD: Atraumatic. Normocephalic. No temporal or scalp tenderness. EYES: Pupils equal round and reactive. Extraocular motions intact. No scleral icterus. No injection or drainage. ENT: Nose without bleeding, purulent drainage or septal hematoma. Throat without erythema, tonsillar hypertrophy or exudate. Uvula midline. Airway patent. NECK: Trachea midline. Supple, nontender, no meningeal signs. CARDIOVASCULAR: HS audible. RESPIRATORY: Clear to auscultation. Breath sounds equal bilaterally. GASTROINTESTINAL: Abdomen soft, non-tender, nondistended. MUSCULOSKELETAL: Bilateral LE with chronic skin changes s/o dermatitis or chronic cellulitis. Left ankle erythema noted, warmth noted and swelling. Some tenderness on movt of left ankle. Right ankle ok. Rest of the joints ok. NEUROLOGICAL: Awake and alert. Grossly non focal Psych: cooperative IV line sites with no e/o infection. Laboratory Laboratory Tests Test 04/08/16 04/08/16 04/08/16 04/08/16 15:15 15:45 15:58 21:35 White Blood Count 16.4 Red Blood Count 7.29 Hemoglobin 16.7 Hematocrit 54.3 Mean Corpuscular Volume 74.5 Mean Corpuscular Hemoglobin 22.9 Mean Corpuscular Hemoglobin 30.8 Concent Red Cell Distribution Width 19.7 Platelet Count 208 Mean Platelet Volume 8.9 Neutrophils (%) (Auto) 94.8 Lymphocytes (%) (Auto) 1.5 Monocytes (%) (Auto) 3.2 Eosinophils (%) (Auto) 0.1 Basophils (%) (Auto) 0.4 Neutrophils # (Auto) 15.5 Lymphocytes # (Auto) 0.2 Monocytes # (Auto) 0.5 Eosinophils # (Auto) 0.0 Basophils # (Auto) 0.1 CBC Comment AUTO DIFF Differential Total Cells 100 Counted Neutrophils % (Manual) 82 Band Neutrophils % 14 Lymphocytes % 1 Monocytes % 1 Eosinophils % 2 Neutrophils # (Manual) 15.7 Differential Comment FINAL DIFF MANUAL Platelet Estimate NORMAL Platelet Morphology Comment NORMAL Prothrombin Time 35.9 Prothromb Time International 3.1 Ratio Activated Partial 39.2 39.2 Thromboplast Time Sodium Level 138 Potassium Level 5.4 Chloride Level 101 Carbon Dioxide Level 31.8 Anion Gap 5 Blood Urea Nitrogen 30 Creatinine 1.26 Estimat Glomerular Filtration 41 Rate Random Glucose 160 Calcium Level 8.9 Magnesium Level 1.8 Total Bilirubin 0.8 Aspartate Amino Transf 37 (AST/SGOT) Alanine Aminotransferase 23 (ALT/SGPT) Alkaline Phosphatase 73 Total Creatine Kinase 80 106 Troponin I 0.02 0.05 B-Type Natriuretic Peptide 633 Total Protein 7.7 Albumin 3.2 Lactic Acid Level 1.5 Blood Gas Puncture Site RT RADIAL Blood Gas Patient Temperature 98.6 Blood Gas HCO3 27 Blood Gas Base Excess 2.6 Blood Gas Oxygen Saturation 89 Arterial Blood pH 7.42 Arterial Blood Partial 42 Pressure CO2 Arterial Blood Partial 65 Pressure O2 Arterial Blood Oxygen Content 21.7 Arterial Blood 2.4 Carboxyhemoglobin Arterial Blood Methemoglobin 2.0 Blood Gas Hemoglobin 17.5 Oxygen Delivery Device VENT Blood Gas Ventilator Setting BIPAP 10 IPAP/5EPAP Blood Gas Inspired Oxygen 40 Test 04/09/16 04/09/16 04/09/16 01:10 03:15 04:00 Urine Color YELLOW Urine Turbidity HAZY Urine pH 5.0 Urine Specific Martin 1.014 Urine Protein NEG Urine Glucose (UA) NEG Urine Ketones NEG Urine Occult Blood SMALL Urine Nitrite NEG Urine Bilirubin NEG Urine Urobilinogen LESS THAN 2.0 Urine Leukocyte Esterase LARGE Urine RBC 41 Urine WBC 40 Urine Squamous Epithelial 3 Cells Urine Hyaline Casts 88 Urine Granular Casts 4 Urine Mucus FEW Microscopic Urinalysis Comment CATH-CULTURE IND White Blood Count 29.7 Red Blood Count 6.32 Hemoglobin 14.8 Hematocrit 46.4 Mean Corpuscular Volume 73.4 Mean Corpuscular Hemoglobin 23.4 Mean Corpuscular Hemoglobin 31.8 Concent Red Cell Distribution Width 20.2 Platelet Count 191 Mean Platelet Volume 8.9 Neutrophils (%) (Auto) 95.5 Lymphocytes (%) (Auto) 1.4 Monocytes (%) (Auto) 2.9 Eosinophils (%) (Auto) 0.0 Basophils (%) (Auto) 0.2 Neutrophils # (Auto) 28.4 Lymphocytes # (Auto) 0.4 Monocytes # (Auto) 0.9 Eosinophils # (Auto) 0.0 Basophils # (Auto) 0.1 CBC Comment AUTO DIFF Differential Total Cells 100 Counted Neutrophils % (Manual) 58 Band Neutrophils % 37 Monocytes % 2 Basophils % 1 Neutrophils # (Manual) 28.8 Metamyelocytes 2 Differential Comment FINAL DIFF MANUAL Toxic Granulation 1+ Toxic Vacuolation PRESENT Dohle Bodies PRESENT Platelet Estimate NORMAL Platelet Morphology Comment NORMAL Prothrombin Time 29.4 Prothromb Time International 2.6 Ratio Sodium Level 142 Potassium Level 4.7 Chloride Level 105 Carbon Dioxide Level 30.0 Anion Gap 7 Blood Urea Nitrogen 38 Creatinine 1.54 Estimat Glomerular Filtration 33 Rate Random Glucose 147 Calcium Level 8.3 Phosphorus Level 4.3 Magnesium Level 1.7 Total Bilirubin 0.8 Aspartate Amino Transf 43 (AST/SGOT) Alanine Aminotransferase 24 (ALT/SGPT) Alkaline Phosphatase 53 Total Creatine Kinase 848 Creatine Kinase MB 7.2 Creatine Kinase MB % 0.8 Troponin I 0.05 Total Protein 6.0 Albumin 2.4 Nasal Screen MRSA (PCR) NEGATIVE Date/Time Procedure Status Source Growth 04/09/16 01:10 Urine Culture Received Urine Catheterized Urine Pending 04/08/16 15:50 Influenza Types A,B Antigen (VADIM) - Final Complete Nasal Washing NEGATIVE FOR FLU A AND B ANTIGEN.... 04/08/16 15:45 Aerobic Blood Culture - Preliminary Resulted Blood Peripheral Gram Positive Cocci 04/08/16 15:45 Anaerobic Blood Culture - Preliminary Resulted Gram Positive Cocci Result Diagram: 04/09/16 0315 04/09/16 0315 Imaging Last Impressions Chest X-Ray 04/09/16 0600 Signed Impressions: Service Date/Time: Saturday, April 09, 2016 04:50 - CONCLUSION: Bibasilar infiltrates which are mildly increased compared to the prior study. Pulmonary venous congestion. Bello Wiggins MD Chest CT 04/08/16 0000 Signed Impressions: Service Date/Time: Friday, April 08, 2016 21:14 - CONCLUSION: 1. Minimal subsegmental airspace disease at the lung bases. No significant pleural or pericardial effusion. Cardiomegaly with severe coronary calcifications. Alvaro Gresham MD Assessment and Plan Assessment and Plan Severe Sepsis present on admission Gram positive bacteremia: Strep B likely skin or GI source Pneumonia present on admission (Community acquired vs atypical) Left ankle cellulitis possible effusion. Acute resp failure on admission (was on Bipap now off ) Acute renal failure: sepsis, prerenal. Hypoalbuminemia DM 2 uncontrolled: compliance vs sepsis related uncontrolled Recs: Repeat blood cultures x 2 Xray left ankle (r/o septic arthritis) given left ankle cellulitis. Check CRP. Change flagyl IV to oral. Continue Azactam IV Add Levaquin oral for possible atypical pneumonia as well as better strep coverage. Continue Vanco IV for now (covers resistant strep pending cultures) Follow cultures Follow clinically. d/.w RN and patient. Verónica Branham MD Apr 09, 2016 15:16
--- NOTE | 2016-04-09 15:23 | EC ---
Study Study Date:04/09/2016 STUDY CONCLUSIONS SUMMARY - Left ventricle: The cavity size was normal. Wall thickness was normal. Systolic function was normal. The estimated ejection fraction was in the range of 55% to 60%. Wall motion was normal; there were no regional wall motion abnormalities. - Aortic valve: Valve area: 2.62cm^2 (Vmax). - Left atrium: The atrium was mildly dilated. - Tricuspid valve: Mild-moderate regurgitation. - Pulmonary arteries: Systolic pressure was mildly increased. PA peak pressure: 36mm Hg (S). If LV function is below 40, please consider prescribing an ACEI or ARB or document rationale for non-use. PROCEDURE DATA STUDY STATUS: Elective. Procedure: Transthoracic echocardiography. Image quality was poor. Scanning was performed from the parasternal and apical acoustic windows. Study completion: The patient tolerated the procedure well. Transthoracic echocardiography. M-mode, complete 2D, complete spectral Doppler, and color Doppler. Height: Height: 67in. Weight: Weight: 241.5lb. Body mass index: BMI: 37.9kg/m^2. Body surface area: BSA: 2.19m^2. Patient status: Inpatient. CARDIAC ANATOMY LEFT VENTRICLE: The cavity size was normal. Wall thickness was normal. Systolic function was normal. The estimated ejection fraction was in the range of 55% to 60%. Wall motion was normal; there were no regional wall motion abnormalities. AORTIC VALVE: Trileaflet; normal thickness leaflets. Doppler: Transvalvular velocity was within the normal range. There was no stenosis. No regurgitation. Valve area: 2.62cm^2 (Vmax). Indexed valve area: 1.2cm^2/m^2 (Vmax). Peak gradient: 15mm Hg (S). AORTA: Aortic root: The aortic root was normal in size. MITRAL VALVE: Structurally normal valve. Doppler: Transvalvular velocity was within the normal range. There was no evidence for stenosis. Trace to mild regurgitation. Peak gradient: 4mm Hg (D). LEFT ATRIUM: The atrium was mildly dilated. RIGHT VENTRICLE: The cavity size was normal. Wall thickness was normal. PULMONIC VALVE: Doppler: Transvalvular velocity was within the normal range. There was no evidence for stenosis. No regurgitation. TRICUSPID VALVE: Structurally normal valve. Doppler: Transvalvular velocity was within the normal range. Mild-moderate regurgitation. PULMONARY ARTERY: The main pulmonary artery was normal-sized. Systolic pressure was mildly increased. RIGHT ATRIUM: The atrium was normal in size. PERICARDIUM: There was no pericardial effusion. SYSTEMIC VEINS: Inferior vena cava: The vessel was normal in size. Patient weight: 241.5lb _Ejection fraction:_ 65-75% _Fractional shortening:_ 32% up to 5Kg 5-11.5Kg 11.6-22.9Kg 23-45Kg 45-57Kg Aortic Root 7-13 <17 13-22 17-27 17-27 LA diam 6-13 <23 24-38 33-47 37-40 RVID 10-17 7-15 7-15 7-18 8-17 LVIDd 12-22 <32 24-38 33-47 37-40 LVPW 2-4 3-6 5-7 6-8 7-8 IVS 2-4 3-6 5-7 6-8 7-8 BASIC MEASUREMENTS ADULT NORMAL Left ventricle LV internal dimension, ED, chordal *40.5 mm 43-52 level, PLAX LV internal dimension, ES, chordal 30.9 mm 23-38 level, PLAX Fractional shortening, chordal level, *24 % >29 PLAX LV posterior wall thickness, ED 10.4 mm IVS/LVPW ratio, ED 0.94 <1.3 Ventricular septum Septal thickness, ED 9.82 mm Aortic valve Leaflet separation 19 mm 15-26 BASIC MEASUREMENTS ADULT NORMAL Aortic valve Leaflet separation 19 mm 15-26 Aorta Root diameter, ED 23 mm 20-37 Left atrium Anterior-posterior dimension, ES *48 mm 19-40 Anterior-posterior dimension index, ES 2.19 cm/m^2 <2.2 LA/aortic root ratio 2.09 DOPPLER MEASUREMENTS ADULT NORMAL Main pulmonary artery Pressure, S *36 mm Hg =30 Aortic valve Peak velocity, S 193 cm/s Peak gradient, S 15 mm Hg Valve area, Vmax 2.62 cm^2 Valve area index, Vmax 1.2 cm^2/m^2 Mitral valve Peak E-wave velocity 106 cm/s Peak A-wave velocity 97.7 cm/s Deceleration time *264 ms 150-230 Peak gradient, D 4 mm Hg Peak E/A ratio 1.1 Maximal regurgitant velocity 284 cm/s Tricuspid valve Regurgitant peak velocity 281 cm/s Peak RV-RA gradient, S 32 mm Hg Maximal regurgitant velocity 281 cm/s Systemic veins Estimated CVP 10 mm Hg Right ventricle RV pressure, S *42 mm Hg <30 Pulmonic valve Peak velocity, S 124 cm/s LEGEND: Mean values are shown as u=mean value. Asterisk (*) temple values outside specified normal range. Prepared and signed by Kimberly Lynne [id number]
[2016-04-09] MEDS ORDERED: MAGNESIUM SULFATE INJ 2 GM in SODIUM CHLORIDE 0.9% INJ 96 ML IV ONE (15:30)
[2016-04-09] MEDS: NYSTATIN 100,000 U/GM PWD 15 GM BTL TOPICAL SCH ×2 (15:48→20:08)
--- NOTE | 2016-04-09 15:58 | HHI.CCPN ---
Subjective Remarks/Hospital Course Patient is a 75-year-old obese white female with history of congestive heart failure, A. fib anticoagulated on Coumadin, hypertension, diabetes presented to the emergency department with shortness of breath since afternoon today. She admits that she has had a productive cough for the past 3-4 weeks. When EMS arrived the patient's oxygen saturation was around 80% on room air. Patient has a low-grade temperature of 100.4F here in the emergency department. She was placed on BiPAP which brought her oxygen saturation back up to the low 90s. She is initially hypertensive with a blood pressure of 213/98. Nitroglycerin paste was placed. Chest x-ray showed early pulmonary edema and right perihilar fullness on my review. CBC shows elevated white blood cell count of 16.4, slightly elevated hemoglobin and hematocrit. Differential shows 14% band neutrophils. INR is therapeutic at 3.1. CMP - mild hyperkalemia with a potassium of 5.4. creatinine of 1.26, BUN 30, BNP is 633. Patient is given Azactam and vancomycin IV empirically. Tmax in ED was 101.2F, heart rate 79 bpm, blood pressure 176/99. 04/09:TMax 100.3 The patient has been weaned from BiPAP to nasal cannula. Blood cultures show gram-positive cocci the patient currently on Atrezonam and Flagyl. The WBC markedly elevated and bandemia noted. ID consulted, appreciate recommendations. The patient complained of pain from her peripheral neuropathy in her lower extremities. Objective Vital Signs Date Time Temp Pulse Resp B/P Pulse Ox O2 Delivery O2 Flow Rate FiO2 04/09/16 13:10 93 Nasal Cannula 4.00 04/09/16 12:00 93 04/09/16 12:00 100.3 23 133/66 04/09/16 08:45 50 Result Diagram: 04/09/165 04/09/165 Other Results Microbiology Date/Time Procedure Status Source Growth 04/08/16 15:50 Influenza Types A,B Antigen (VADIM) - Final Complete Nasal Washing NEGATIVE FOR FLU A AND B ANTIGEN.... Laboratory Tests Test 04/08/16 15:58 Blood Gas Puncture Site RT RADIAL Blood Gas Patient Temperature 98.6 Blood Gas HCO3 27 mmol/L (22-26) Blood Gas Base Excess 2.6 mmol/L (-2-2) Blood Gas Oxygen Saturation 89 % (90-100) Arterial Blood pH 7.42 (7.380-7.420) Arterial Blood Partial 42 mmHg (38-42) Pressure CO2 Arterial Blood Partial 65 mmHG Pressure O2 (61-120) Arterial Blood Oxygen Content 21.7 Vol % (12.0-20.0) Arterial Blood 2.4 % (0-4) Carboxyhemoglobin Arterial Blood Methemoglobin 2.0 % (0-2) Blood Gas Hemoglobin 17.5 G/DL (12.0-16.0) Oxygen Delivery Device VENT Blood Gas Ventilator Setting BIPAP 10 IPAP/5EPAP Blood Gas Inspired Oxygen 40 % Imaging Early pulmonary edema right sided infiltrate on my review Objective Remarks GENERAL: Well-nourished and well-developed morbidly obese on N/C SKIN: Warm and dry. HEAD: Normocephalic and atraumatic. EYES: CAROL ANN. ENT: No nasal drainage noted. NECK: Supple and the trachea is midline. Unable to evaluate for JVD CARDIOVASCULAR: Irregular heart rate atrial fibrillation. No murmurs distant heart sounds RESPIRATORY: Bilateral breath sounds scattered wheezes, no rhonchi noted GASTROINTESTINAL: Abdomen is soft, non-tender, and nondistended. MUSCULOSKELETAL: Bilateral lower extremity edema 2+. Venous stasis noted bilateral lower extremities. Left lower extremity cellulitis, area reddened. NEUROLOGICAL: Awake, alert, and oriented. Normal speech. No focal deficits A/P Assessment and Plan Acute hypoxemic respiratory failure CHF exacerbation Probable pneumonia Severe sepsis Uncontrolled hypertension Acute kidney insufficiency Atrial fibrillation with RVR Morbid obesity Chronic A. fib on Coumadin Type 2 diabetes Hypertension History of CHF Peripheral neuropathy ARNOLDO PLAN: NEURO: -Minimize sedation, when necessary morphine for pain anxiety -Begin gabapentin RESP: -Continue BiPAP 12 over 5. DuoNeb every 6 hours and when necessary -Broad spectrum antibiotics with Azactam and Flagyl -Sputum culture, check CT of the chest CV: -Clinical evidence of CHF exacerbation -F/U 2-D echo pending, IV Lasix 40 mg 1 and 40 every 12 -Cycle cardiac enzymes -Plavix, ASA continued GI: -Clear liquid diet, advance diet as tolerated -IV Protonix, for GI prophylaxis : -Monitor renal function closely -Lee catheter. ID: -IV vancomycin and Azactam given in ED -Continue Azactam and Flagyl -Check blood [id number] cocci - sputum culture and urine culture pending -ID consulted-follow up recommendations HEME: -Monitor CBC, CMP, coags -Consult pharmacy for Coumadin dosing ENDO: -Electrolyte replacement per protocol -Sliding-scale insulin PROPH: -Bilateral lower extremity SCDs. Coumadin, Protonix LINES: -Utilize peripheral IVs, central line if needed Level 3 Physician Laurie Majano MD Apr 09, 2016 15:58
--- NOTE | 2016-04-09 16:29 | RADRPT ---
EXAM DATE/TIME: 04/09/2016 15:43 [facility] COMPARISON: No previous studies available for comparison. INDICATIONS : Left ankle pain, lower extremity edema, unable to move leg MEDICAL HISTORY : None. SURGICAL HISTORY : None. ENCOUNTER: Initial ACUITY: 1 month PAIN SCORE: 10/10 LOCATION: Left ankle FINDINGS: AP and lateral views of the left ankle demonstrate no definite acute fracture. The bones are undermin eralized. There is severe joint space narrowing and osteophytes at the tibiotalar joint. There is hyp ertrophic bone versus fragmentation of the lateral malleolus. There are mild degenerative changes in the mid foot. Enthesophytes are present at the posterior and plantar aspect of the calcaneus. There i s subcutaneous edema distally as well as arterial vascular calcification. CONCLUSION: No acute fracture is identified but there is severe degenerative change and hypertrophic bone at the tibiotalar joint. There is also hypertrophic bone or fragmentation at the lateral malleolus. Given th e appearance this could represent severe degenerative change versus Charcot joint. There is subcutane ous edema in the distal leg. Blu Loredo MD on April 09, 2016 at 16:21 Board Certified Radiologist. This report was verified electronically.
[2016-04-09] MEDS: WARFARIN SOD 3 MG TAB PO SCH (16:32)
[2016-04-09] MEDS: VANCOMYCIN INJ 1,750 MG in SODIUM CHLORID 0.9% 500 ML INJ 500 ML IV SCH (16:32)
[2016-04-09] MEDS ORDERED: LEVOFLOXACIN 500 MG TAB PO ONE (17:00)
--- NOTE | 2016-04-09 18:03 | EKG ---
Date Performed: 04/08/2016 Time Performed: 15:28:01 PTAGE: 75 years EKG: Probabale atrial pacing, with premature ventricular contraction. significant baseline artif act. MARKED LEFT AXIS DEVIATION PATTERN CONSISTENT WITH PULMONARY DISEASE Consider repeat EKG. When c ompared to previous tracing, rate has increased. ABNORMAL ECG PREVIOUS TRACING : 03/12/2014 15.40 DOCTOR: Kimberly Lynen Interpretating Date/Time 04/09/2016 18:02:03
[2016-04-09] MEDS: PRAVASTATIN SOD 80 MG TAB PO SCH (20:08)
[2016-04-09] MEDS: metroNIDAZOLE 500 MG TAB PO SCH (20:08)
[2016-04-09] MEDS: FENOFIBRATE 145 MG TAB PO SCH (20:08)
[2016-04-09] MEDS: ACETAMINOPHEN/HYDROcodone 325 MG/5 MG TAB PO PRN (21:10)
[2016-04-10] VITALS (10 sets, daily range): BP systolic 89–109; BP diastolic 50–60; PULSE 81–91; RESP 15–30; TEMP 98.1–99.9; O2SAT 90–100
[2016-04-10] MEDS: AZTREONAM INJ 2,000 MG in SODIUM CHLORIDE 0.9% INJ 100 ML IV SCH ×3 (00:48→17:38)
[2016-04-10] MEDS: RESP: ALBUTEROL 2.5 MG/IPRATROPIUM 0.5 MG NEB (SCH) NEB ×4 (03:39→21:59)
[2016-04-10] MEDS: CHLORHEXIDINE GLUCONATE 2 % 1 PACK (2 CLOTHS) TOP SCH (04:00)
[2016-04-10] MEDS: INSULIN ASPART SUPPLEMENTAL SCALE SQ SCH ×5 (04:00→20:00)
[2016-04-10] MEDS: metroNIDAZOLE 500 MG TAB PO SCH ×3 (04:04→20:45)
[2016-04-10 05:06] LABS: AUTOMATED NEUTROPHIL # 12.2 TH/MM3 (1.8-7.7); BASOPHIL % 0.2 % (0.0-2.0); EOSINOPHIL % 0.1 % (0.0-4.0); HEMATOCRIT 45.6 % (35.0-46.0); LYMPH % 3.7 % (9.0-44.0); LYMPHOCYTE # 0.5 TH/MM3 (1.0-4.8); MEAN CELL VOLUME 75.1 FL (80.0-100.0); MEAN CORPUSCULAR HEMOGLOBIN 23.2 PG (27.0-34.0); MEAN CORPUSCULAR HGB CONC 30.8 % (32.0-36.0); PLATELET COUNT 158 TH/MM3 (150-450); RED BLOOD COUNT 6.07 MIL/MM3 (4.00-5.30); RED CELL DISTRIBUTION WIDTH 20.3 % (11.6-17.2); WHITE BLOOD COUNT 13.6 TH/MM3 (4.0-11.0)
[2016-04-10 05:11] LABS: HEMO FLAGS AUTO DIFF; INTERNATIONAL NORMALIZED RATIO 2.5 RATIO; PROTHROMBIN TIME - PATIENT 28.4 SEC (9.8-11.6)
[2016-04-10 05:41] LABS: BICARBONATE 35.1 MEQ/L (21.0-32.0); MAGNESIUM 2.3 MG/DL (1.5-2.5); POTASSIUM 4.4 MEQ/L (3.5-5.1)
[2016-04-10 07:02] LABS: PLATELET ESTIMATE SMEAR NORMAL (NORMAL); PLATELET MORPHOLOGY CLUMPED (NORMAL); SCAN/DIFF AUTO DIFF CONFIRMED
[2016-04-10] MEDS: CHLORHEXIDINE 0.12% (ORAL KIT) 15 ML CUP MT SCH ×2 (08:00→20:00)
[2016-04-10] MEDS: PANTOPRAZOLE SODIUM 40 MG VIAL IV SCH (08:37)
[2016-04-10] MEDS: SODIUM CHLORIDE 0.9% FLUSH 5 ML FLUSH IVF SCH ×2 (08:37→20:46)
[2016-04-10] MEDS: FUROSEMIDE 40 MG/4 ML VIAL IV PUSH SCH ×2 (08:37→20:45)
[2016-04-10] MEDS: LEVOFLOXACIN 250 MG TAB PO SCH (08:37)
[2016-04-10] MEDS: NYSTATIN 100,000 U/GM PWD 15 GM BTL TOPICAL SCH ×2 (08:38→20:44)
[2016-04-10] MEDS: CLOPIDOGREL 75 MG TAB PO SCH (08:38)
--- NOTE | 2016-04-10 10:35 | HHI.IDPN ---
Subjective Subjective Remarks is a 75 y/o morbidly obese CF with history of CHF,A. fib anticoagulated on Coumadin, hypertension, diabetes presented to the emergency department with shortness of breath that started on the afternoon prior to admission. ID following her for pneumonia, left leg cellulitis and Strep bacteremia. Overnight events reviewed. No fever No rash No diarrhea. Sitting up in bed. Antibiotics Ceftriaxone IV Vanco IV Lines Line sites with no e/o infection Past Medical History reviewed Allergies: Coded Allergies: Mercurial Derivatives (Verified Allergy, Severe, 03/12/14) Thorazine (Verified Allergy, Severe, 03/12/14) Penicillin (Verified Allergy, Intermediate, Rash, 03/12/14) Objective . Vital Signs Date Time Temp Pulse Resp B/P Pulse Ox O2 Delivery O2 Flow Rate FiO2 04/10/16 08:00 82 04/10/16 08:00 99.8 84 20 93/50 96 04/10/16 07:00 Bi-Pap 60 04/10/16 04:00 99.9 90 26 95/58 100 04/10/16 04:00 90 04/10/16 03:50 100 60 04/10/16 01:20 95 60 04/10/16 00:00 99.5 91 15 89/52 95 04/10/16 00:00 91 04/10/16 00:00 95 Bi-Pap 60 04/09/16 23:00 96 60 04/09/16 20:53 92 Venturi Mask 50 04/09/16 20:00 105 04/09/16 20:00 100.1 105 27 113/62 91 04/09/16 19:00 93 Venturi Mask 50 04/09/16 17:00 96 60 04/09/16 16:00 100 04/09/16 16:00 100.3 98 28 131/60 90 04/09/16 13:10 93 Nasal Cannula 4.00 04/09/16 13:07 93 Nasal Cannula 4.00 04/09/16 12:00 93 04/09/16 12:00 100.3 93 23 133/66 94 04/09/16 04/09/16 04/10/16 15:00 23:00 07:00 Intake Total 632 ml 976 ml 407 ml Output Total 3000 ml 850 ml 350 ml Balance -2368 ml 126 ml 57 ml Intake Oral 360 ml 240 ml 240 ml IV Total 272 ml 736 ml 167 ml Output Urine Total 3000 ml 850 ml 350 ml # Bowel Movements 1 1 0 . Laboratory Tests Test 04/08/16 04/09/16 04/10/16 15:15 03:15 04:07 White Blood Count 16.4 TH/MM3 29.7 TH/MM3 13.6 TH/MM3 Red Blood Count 7.29 MIL/MM3 6.32 MIL/MM3 6.07 MIL/MM3 Hemoglobin 16.7 GM/DL 14.8 GM/DL 14.1 GM/DL Hematocrit 54.3 % 46.4 % 45.6 % Mean Corpuscular Volume 74.5 FL 73.4 FL 75.1 FL Mean Corpuscular Hemoglobin 22.9 PG 23.4 PG 23.2 PG Mean Corpuscular Hemoglobin 30.8 % 31.8 % 30.8 % Concent Red Cell Distribution Width 19.7 % 20.2 % 20.3 % Platelet Count 208 TH/MM3 191 TH/MM3 158 TH/MM3 Mean Platelet Volume 8.9 FL 8.9 FL 8.8 FL Neutrophils (%) (Auto) 94.8 % 95.5 % 90.0 % Lymphocytes (%) (Auto) 1.5 % 1.4 % 3.7 % Monocytes (%) (Auto) 3.2 % 2.9 % 6.0 % Eosinophils (%) (Auto) 0.1 % 0.0 % 0.1 % Basophils (%) (Auto) 0.4 % 0.2 % 0.2 % Neutrophils # (Auto) 15.5 TH/MM3 28.4 TH/MM3 12.2 TH/MM3 Lymphocytes # (Auto) 0.2 TH/MM3 0.4 TH/MM3 0.5 TH/MM3 Monocytes # (Auto) 0.5 TH/MM3 0.9 TH/MM3 0.8 TH/MM3 Eosinophils # (Auto) 0.0 TH/MM3 0.0 TH/MM3 0.0 TH/MM3 Basophils # (Auto) 0.1 TH/MM3 0.1 TH/MM3 0.0 TH/MM3 CBC Comment AUTO DIFF AUTO DIFF AUTO DIFF Differential Total Cells 100 100 Counted Neutrophils % (Manual) 82 % 58 % Band Neutrophils % 14 % 37 % Lymphocytes % 1 % Monocytes % 1 % 2 % Eosinophils % 2 % Neutrophils # (Manual) 15.7 TH/MM3 28.8 TH/MM3 Differential Comment FINAL DIFF FINAL DIFF AUTO DIFF MANUAL MANUAL CONFIRMED Platelet Estimate NORMAL NORMAL NORMAL Platelet Morphology Comment NORMAL NORMAL CLUMPED Basophils % 1 % Metamyelocytes 2 % Toxic Granulation 1+ Toxic Vacuolation PRESENT Dohle Bodies PRESENT Laboratory Tests Test 04/08/16 04/08/16 04/08/16 04/09/16 15:15 15:45 21:35 03:15 Sodium Level 138 MEQ/L 142 MEQ/L Potassium Level 5.4 MEQ/L 4.7 MEQ/L Chloride Level 101 MEQ/L 105 MEQ/L Carbon Dioxide Level 31.8 MEQ/L 30.0 MEQ/L Anion Gap 5 MEQ/L 7 MEQ/L Blood Urea Nitrogen 30 MG/DL 38 MG/DL Creatinine 1.26 MG/DL 1.54 MG/DL Estimat Glomerular Filtration 41 ML/MIN 33 ML/MIN Rate Random Glucose 160 MG/DL 147 MG/DL Calcium Level 8.9 MG/DL 8.3 MG/DL Magnesium Level 1.8 MG/DL 1.7 MG/DL Total Bilirubin 0.8 MG/DL 0.8 MG/DL Aspartate Amino Transf 37 U/L 43 U/L (AST/SGOT) Alanine Aminotransferase 23 U/L 24 U/L (ALT/SGPT) Alkaline Phosphatase 73 U/L 53 U/L Total Creatine Kinase 80 U/L 106 U/L 848 U/L Troponin I 0.02 NG/ML 0.05 NG/ML 0.05 NG/ML B-Type Natriuretic Peptide 633 PG/ML Total Protein 7.7 GM/DL 6.0 GM/DL Albumin 3.2 GM/DL 2.4 GM/DL Lactic Acid Level 1.5 mmol/L Phosphorus Level 4.3 MG/DL Creatine Kinase MB 7.2 NG/ML Creatine Kinase MB % 0.8 % C-Reactive Protein 11.00 MG/DL Test 04/10/16 04:07 Sodium Level 140 MEQ/L Potassium Level 4.4 MEQ/L Chloride Level 100 MEQ/L Carbon Dioxide Level 35.1 MEQ/L Anion Gap 5 MEQ/L Blood Urea Nitrogen 43 MG/DL Creatinine 1.38 MG/DL Estimat Glomerular Filtration 37 ML/MIN Rate Random Glucose 128 MG/DL Calcium Level 8.2 MG/DL Phosphorus Level 3.2 MG/DL Magnesium Level 2.3 MG/DL Microbiology Date/Time Procedure Status Source Growth 04/08/16 15:40 Aerobic Blood Culture - Preliminary Resulted Blood Peripheral Group B Beta Strep 04/08/16 15:40 Anaerobic Blood Culture - Preliminary Resulted Gram Positive Cocci 04/08/16 15:45 Aerobic Blood Culture - Preliminary Resulted Blood Peripheral Gram Positive Cocci 04/08/16 15:45 Anaerobic Blood Culture - Preliminary Resulted Gram Positive Cocci 04/08/16 15:50 Influenza Types A,B Antigen (VADIM) - Final Complete Nasal Washing NEGATIVE FOR FLU A AND B ANTIGEN.... 04/09/16 01:10 Urine Culture Received Urine Catheterized Urine Pending 04/09/16 01:10 Legionella Antigen - Final Complete Urine Random Urine PRESUMPTIVE NEGATIVE FOR LEGIONELLA P... 04/09/16 16:47 Aerobic Blood Culture Received Blood Peripheral Pending 04/09/16 16:47 Anaerobic Blood Culture Received Blood Peripheral Pending 04/09/16 16:54 Aerobic Blood Culture Received Blood Peripheral Pending 04/09/16 16:54 Anaerobic Blood Culture Received Blood Peripheral Pending Imaging Last Impressions Chest X-Ray 04/09/16 0600 Signed Impressions: Service Date/Time: Saturday, April 09, 2016 04:50 - CONCLUSION: Bibasilar infiltrates which are mildly increased compared to the prior study. Pulmonary venous congestion. Bello Wiggins MD Ankle X-Ray 04/09/16 0000 Signed Impressions: Service Date/Time: Saturday, April 09, 2016 15:43 - CONCLUSION: No acute fracture is identified but there is severe degenerative change and hypertrophic bone at the tibiotalar joint. There is also hypertrophic bone or fragmentation at the lateral malleolus. Given the appearance this could represent severe degenerative change versus Charcot joint. There is subcutaneous edema in the distal leg. Blu Loredo MD Chest CT 04/08/16 0000 Signed Impressions: Service Date/Time: Friday, April 08, 2016 21:14 - CONCLUSION: 1. Minimal subsegmental airspace disease at the lung bases. No significant pleural or pericardial effusion. Cardiomegaly with severe coronary calcifications. Alvaro Gresham MD Physical Exam GENERAL: Obese CF patient, in no apparent distress. SKIN: No generalized rashes. Rest per LE exam. HEAD: Atraumatic. Normocephalic. No temporal or scalp tenderness. EYES: Pupils equal round and reactive. Extraocular motions intact. No scleral icterus. No injection or drainage. ENT: Nose without bleeding, purulent drainage or septal hematoma. Throat without erythema, tonsillar hypertrophy or exudate. Uvula midline. Airway patent. NECK: Trachea midline. Supple, nontender, no meningeal signs. CARDIOVASCULAR: HS audible. RESPIRATORY: Clear to auscultation. Breath sounds equal bilaterally. GASTROINTESTINAL: Abdomen soft, non-tender, nondistended. MUSCULOSKELETAL: Bilateral LE with chronic skin changes s/o dermatitis or chronic cellulitis. Left ankle erythema noted, warmth noted and swelling. Some tenderness on movt of left ankle. Right ankle ok. Rest of the joints ok. NEUROLOGICAL: Awake and alert. Grossly non focal Psych: cooperative IV line sites with no e/o infection. Assessment & Plan Remarks Severe Sepsis present on admission Gram positive bacteremia: Strep B likely skin or GI source Pneumonia present on admission (Community acquired vs atypical) Left ankle cellulitis possible effusion. Acute resp failure on admission (was on Bipap now off ) Acute renal failure: sepsis, prerenal. Hypoalbuminemia DM 2 uncontrolled: compliance vs sepsis related uncontrolled Recs: Follow repeat blood cultures. Xray left ankle no effusion. CRP elevated at 11. Continue flagyl oral. Continue Azactam IV Continue Levaquin oral for possible atypical pneumonia as well as better strep coverage. Continue Vanco IV for now (covers resistant strep pending cultures). d/w pt will need Colonoscopy, dental followup as these are risk factors in addition to her current cellulitis. Follow cultures Follow clinically. d/.w RN and patient. Verónica Branham MD Apr 10, 2016 10:35
[2016-04-10] MEDS: VANCOMYCIN INJ 1,750 MG in SODIUM CHLORID 0.9% 500 ML INJ 500 ML IV SCH (16:06)
[2016-04-10] MEDS: WARFARIN SOD 3 MG TAB PO SCH (16:06)
--- NOTE | 2016-04-10 17:34 | HHI.CCPN ---
Subjective Remarks/Hospital Course Patient is a 75-year-old obese white female with history of congestive heart failure, A. fib anticoagulated on Coumadin, hypertension, diabetes presented to the emergency department with shortness of breath since afternoon today. She admits that she has had a productive cough for the past 3-4 weeks. When EMS arrived the patient's oxygen saturation was around 80% on room air. Patient has a low-grade temperature of 100.4F here in the emergency department. She was placed on BiPAP which brought her oxygen saturation back up to the low 90s. She is initially hypertensive with a blood pressure of 213/98. Nitroglycerin paste was placed. Chest x-ray showed early pulmonary edema and right perihilar fullness on my review. CBC shows elevated white blood cell count of 16.4, slightly elevated hemoglobin and hematocrit. Differential shows 14% band neutrophils. INR is therapeutic at 3.1. CMP - mild hyperkalemia with a potassium of 5.4. creatinine of 1.26, BUN 30, BNP is 633. Patient is given Azactam and vancomycin IV empirically. Tmax in ED was 101.2F, heart rate 79 bpm, blood pressure 176/99. 04/09:TMax 100.3 The patient has been weaned from BiPAP to nasal cannula. Blood cultures show gram-positive cocci the patient currently on Atrezonam and Flagyl. The WBC markedly elevated and bandemia noted. ID consulted, appreciate recommendations. The patient complained of pain from her peripheral neuropathy in her lower extremities. 04/10: Infectious disease consulted yesterday, Dr. Branham placed patient on antibiotic regimen. The patient tolerated BiPAP during the night, during the day the patient was maintained on 5 L nasal cannula O2 sat ranging 92-93%. Objective Vital Signs Date Time Temp Pulse Resp B/P Pulse Ox O2 Delivery O2 Flow Rate FiO2 04/10/16 16:00 98.7 86 27 102/57 90 04/10/16 15:33 Nasal Cannula 6.00 04/10/16 07:00 60 Intake and Output 04/09/16 04/09/16 04/10/16 08:00 16:00 00:00 Intake Total 200 ml 632 ml 976 ml Output Total 550 ml 3000 ml 850 ml Balance -350 ml -2368 ml 126 ml Result Diagram: 04/10/16 0407 04/10/16 040 Other Results Microbiology Date/Time Procedure Status Source Growth 04/08/16 15:50 Influenza Types A,B Antigen (VADIM) - Final Complete Nasal Washing NEGATIVE FOR FLU A AND B ANTIGEN.... 04/09/16 01:10 Legionella Antigen - Final Complete Urine Random Urine PRESUMPTIVE NEGATIVE FOR LEGIONELLA P... Imaging Last Impressions Chest X-Ray 04/09/16 0600 Signed Impressions: Service Date/Time: Saturday, April 09, 2016 04:50 - CONCLUSION: Bibasilar infiltrates which are mildly increased compared to the prior study. Pulmonary venous congestion. Bello Wiggins MD Ankle X-Ray 04/09/16 0000 Signed Impressions: Service Date/Time: Saturday, April 09, 2016 15:43 - CONCLUSION: No acute fracture is identified but there is severe degenerative change and hypertrophic bone at the tibiotalar joint. There is also hypertrophic bone or fragmentation at the lateral malleolus. Given the appearance this could represent severe degenerative change versus Charcot joint. There is subcutaneous edema in the distal leg. Blu Loredo MD Chest CT 04/08/16 0000 Signed Impressions: Service Date/Time: Friday, April 08, 2016 21:14 - CONCLUSION: 1. Minimal subsegmental airspace disease at the lung bases. No significant pleural or pericardial effusion. Cardiomegaly with severe coronary calcifications. Alvaro Gresham MD Objective Remarks GENERAL: Well-nourished and well-developed morbidly obese on N/C SKIN: Warm and dry. HEAD: Normocephalic and atraumatic. EYES: CAROL ANN. ENT: No nasal drainage noted. NECK: Supple and the trachea is midline. Unable to evaluate for JVD CARDIOVASCULAR: Irregular heart rate atrial fibrillation. No murmurs distant heart sounds RESPIRATORY: Bilateral breath sounds scattered wheezes, no rhonchi noted GASTROINTESTINAL: Abdomen is soft, protuberant non-tender, and nondistended. MUSCULOSKELETAL: Bilateral lower extremity edema 2+. Venous stasis noted bilateral lower extremities. Left lower extremity cellulitis, area reddened. NEUROLOGICAL: Awake, alert, and oriented. Normal speech. No focal deficits Urinary Catheter: Yes Lee insert reason: ICU Pt Getting Diuretics A/P Assessment and Plan Acute hypoxemic respiratory failure CHF exacerbation Probable pneumonia Severe sepsis Uncontrolled hypertension Acute kidney insufficiency Atrial fibrillation with RVR Morbid obesity Chronic A. fib on Coumadin Type 2 diabetes Hypertension History of CHF Peripheral neuropathy ARNOLDO PLAN: NEURO: -Minimize sedation,Lortab PRN -Begin gabapentin 100mg TID (home medication) RESP: -Continue BiPAP 12 over 5 at night. DuoNeb every 6 hours and when necessary -O2 via N/C 5 LPM currently -Broad spectrum antibiotics with Azactam and Flagyl -Sputum culture, check CT of the chest CV: -Clinical evidence of CHF exacerbation - 2-D ECHO 04/09-EF 55-60%, no RWMA -Continue IV Lasix twice a day -Plavix, ASA continued GI: -1800 gamaliel ADA, heart healthy diet -Bowel regimen -IV Protonix, for GI prophylaxis -Zofran for nausea : -Monitor renal function closely -Lee catheter, monitor hourly output ID: -IV vancomycin and Azactam given in ED -Continue Azactam and Flagyl -Check blood uopooxme-dutn-rknamuax cocci - sputum culture and urine culture pending -ID consulted- Dr. Branham follow up recommendations HEME: -Monitor CBC, CMP, coags -Consult pharmacy for Coumadin dosing ENDO: -Electrolyte replacement per protocol -Glucose monitoring per ICU protocol -Sliding-scale insulin, will monitor glucose now a regular diet will consider Levemir PROPH: -Bilateral lower extremity SCDs. Coumadin, Protonix LINES: -Utilize peripheral IVs, central line if needed Level 3 Physician Laurie Majano MD Apr 10, 2016 17:34
[2016-04-10] MEDS: PRAVASTATIN SOD 80 MG TAB PO SCH (20:44)
[2016-04-10] MEDS: FENOFIBRATE 145 MG TAB PO SCH (20:45)
[2016-04-10] MEDS: GABAPENTIN 100 MG CAP PO SCH (21:00)
[2016-04-10] MEDS ORDERED: GABAPENTIN 100 MG CAP PO SCH (21:00)
[2016-04-10] MEDS: ACETAMINOPHEN/HYDROcodone 325 MG/5 MG TAB PO PRN (21:01)
[2016-04-11] VITALS (11 sets, daily range): BP systolic 102–128; BP diastolic 58–75; PULSE 74–112; RESP 22–32; TEMP 97.6–98.7; O2SAT 91–98
[2016-04-11] MEDS ORDERED: HYDROmorphone HCL PF 1 MG/ML VIAL IV ONE (00:45)
[2016-04-11] MEDS: AZTREONAM INJ 2,000 MG in SODIUM CHLORIDE 0.9% INJ 100 ML IV SCH ×3 (01:27→18:16)
[2016-04-11] MEDS: INSULIN ASPART SUPPLEMENTAL SCALE SQ SCH ×6 (01:27→20:00)
[2016-04-11] MEDS: CHLORHEXIDINE GLUCONATE 2 % 1 PACK (2 CLOTHS) TOP SCH (04:00)
[2016-04-11] MEDS: metroNIDAZOLE 500 MG TAB PO SCH ×2 (04:06→11:47)
[2016-04-11] MEDS: RESP: ALBUTEROL 2.5 MG/IPRATROPIUM 0.5 MG NEB (SCH) NEB ×4 (04:17→19:57)
[2016-04-11 04:32] LABS: INTERNATIONAL NORMALIZED RATIO 2.4 RATIO; PROTHROMBIN TIME - PATIENT 27.5 SEC (9.8-11.6)
[2016-04-11 04:36] LABS: AUTOMATED NEUTROPHIL # 6.6 TH/MM3 (1.8-7.7); BASOPHIL % 0.3 % (0.0-2.0); EOSINOPHIL # 0.1 TH/MM3 (0-0.4); EOSINOPHIL % 1.4 % (0.0-4.0); HEMATOCRIT 42.7 % (35.0-46.0); LYMPH % 7.9 % (9.0-44.0); LYMPHOCYTE # 0.6 TH/MM3 (1.0-4.8); MEAN CELL VOLUME 73.6 FL (80.0-100.0); MEAN CORPUSCULAR HEMOGLOBIN 23.3 PG (27.0-34.0); MEAN CORPUSCULAR HGB CONC 31.7 % (32.0-36.0); MONO % 7.7 % (0.0-8.0); NEUT % 82.7 % (16.0-70.0); PLATELET COUNT 171 TH/MM3 (150-450); RED BLOOD COUNT 5.81 MIL/MM3 (4.00-5.30); RED CELL DISTRIBUTION WIDTH 20.7 % (11.6-17.2)
[2016-04-11 04:43] LABS: HEMO FLAGS AUTO DIFF
[2016-04-11 04:57] LABS: BICARBONATE 35.2 MEQ/L (21.0-32.0); MAGNESIUM 2.1 MG/DL (1.5-2.5)
[2016-04-11 05:44] LABS: SCAN/DIFF AUTO DIFF CONFIRMED
[2016-04-11 05:46] LABS: PLATELET ESTIMATE SMEAR NORMAL (NORMAL); PLATELET MORPHOLOGY NORMAL (NORMAL)
[2016-04-11] MEDS: CHLORHEXIDINE 0.12% (ORAL KIT) 15 ML CUP MT SCH ×2 (08:00→20:00)
[2016-04-11] MEDS: LEVOFLOXACIN 250 MG TAB PO SCH (08:34)
[2016-04-11] MEDS: GABAPENTIN 100 MG CAP PO SCH ×3 (08:34→18:16)
[2016-04-11] MEDS: PANTOPRAZOLE SODIUM 40 MG VIAL IV SCH (08:34)
[2016-04-11] MEDS: CLOPIDOGREL 75 MG TAB PO SCH (08:34)
[2016-04-11] MEDS: NYSTATIN 100,000 U/GM PWD 15 GM BTL TOPICAL SCH ×2 (08:35→21:00)
[2016-04-11] MEDS: SODIUM CHLORIDE 0.9% FLUSH 5 ML FLUSH IVF SCH ×2 (08:35→21:00)
[2016-04-11] MEDS: FUROSEMIDE 40 MG/4 ML VIAL IV PUSH SCH (08:35)
[2016-04-11] MEDS ORDERED: PHARMACY ORDERED LAB XX ONE (15:45)
[2016-04-11] MEDS: WARFARIN SOD 3 MG TAB PO SCH (16:07)
[2016-04-11] MEDS: VANCOMYCIN INJ 1,750 MG in SODIUM CHLORID 0.9% 500 ML INJ 500 ML IV SCH (16:07)
--- NOTE | 2016-04-11 16:14 | HHI.CCPN ---
Subjective Remarks/Hospital Course Patient is a 75-year-old obese white female with history of congestive heart failure, A. fib anticoagulated on Coumadin, hypertension, diabetes presented to the emergency department with shortness of breath since afternoon today. She admits that she has had a productive cough for the past 3-4 weeks. When EMS arrived the patient's oxygen saturation was around 80% on room air. Patient has a low-grade temperature of 100.4F here in the emergency department. She was placed on BiPAP which brought her oxygen saturation back up to the low 90s. She is initially hypertensive with a blood pressure of 213/98. Nitroglycerin paste was placed. Chest x-ray showed early pulmonary edema and right perihilar fullness on my review. CBC shows elevated white blood cell count of 16.4, slightly elevated hemoglobin and hematocrit. Differential shows 14% band neutrophils. INR is therapeutic at 3.1. CMP - mild hyperkalemia with a potassium of 5.4. creatinine of 1.26, BUN 30, BNP is 633. Patient is given Azactam and vancomycin IV empirically. Tmax in ED was 101.2F, heart rate 79 bpm, blood pressure 176/99. 04/09:TMax 100.3 The patient has been weaned from BiPAP to nasal cannula. Blood cultures show gram-positive cocci the patient currently on Atrezonam and Flagyl. The WBC markedly elevated and bandemia noted. ID consulted, appreciate recommendations. The patient complained of pain from her peripheral neuropathy in her lower extremities. 04/10: Infectious disease consulted yesterday, Dr. Branham placed patient on antibiotic regimen. The patient tolerated BiPAP during the night, during the day the patient was maintained on 5 L nasal cannula O2 sat ranging 92-93%. 04/11:The patient diuresed > 3 liters over the last 24 hours. Leukocytosis resolved. Pulmonology consulted , Dr. Gil appreciate recommendations. O2 remains at 6LPM to maintain O2 sat 93%. Objective Vital Signs Date Time Temp Pulse Resp B/P Pulse Ox O2 Delivery O2 Flow Rate FiO2 04/11/16 12:00 80 04/11/16 12:00 98.0 32 128/75 93 04/11/16 09:22 Nasal Cannula 6.00 04/11/16 04:13 60 Intake and Output 04/10/16 04/10/16 04/10/16 07:59 15:59 23:59 Intake Total 407 ml 933 ml 1255 ml Output Total 350 ml 750 ml 1200 ml Balance 57 ml 183 ml 55 ml Result Diagram: 04/11/16 0329 04/11/16 0329 Other Results Microbiology Date/Time Procedure Status Source Growth 04/09/16 01:10 Urine Culture - Final Complete Urine Catheterized Urine NO GROWTH IN 48 HOURS. 04/09/16 01:10 Legionella Antigen - Final Complete Urine Random Urine PRESUMPTIVE NEGATIVE FOR LEGIONELLA P... Imaging Last Impressions Chest X-Ray 04/09/16 0600 Signed Impressions: Service Date/Time: Saturday, April 09, 2016 04:50 - CONCLUSION: Bibasilar infiltrates which are mildly increased compared to the prior study. Pulmonary venous congestion. Bello Wiggins MD Ankle X-Ray 04/09/16 0000 Signed Impressions: Service Date/Time: Saturday, April 09, 2016 15:43 - CONCLUSION: No acute fracture is identified but there is severe degenerative change and hypertrophic bone at the tibiotalar joint. There is also hypertrophic bone or fragmentation at the lateral malleolus. Given the appearance this could represent severe degenerative change versus Charcot joint. There is subcutaneous edema in the distal leg. Blu Loredo MD Chest CT 04/08/16 0000 Signed Impressions: Service Date/Time: Friday, April 08, 2016 21:14 - CONCLUSION: 1. Minimal subsegmental airspace disease at the lung bases. No significant pleural or pericardial effusion. Cardiomegaly with severe coronary calcifications. Alvaro Gresham MD Objective Remarks GENERAL: Well-nourished and well-developed morbidly obese on N/C@ 6 LPM SKIN: Warm and dry. HEAD: Normocephalic and atraumatic. EYES: CAROL ANN. ENT: No nasal drainage noted. NECK: Supple and the trachea is midline. Unable to evaluate for JVD CARDIOVASCULAR: Irregular heart rate atrial fibrillation. No murmurs distant heart sounds RESPIRATORY: Bilateral breath sounds scattered wheezes, no rhonchi noted GASTROINTESTINAL: Abdomen is soft, protuberant non-tender, and nondistended. MUSCULOSKELETAL: Bilateral lower extremity edema 2+. Venous stasis noted bilateral lower extremities. Left lower extremity cellulitis, area reddened. NEUROLOGICAL: Awake, alert, and oriented. Normal speech. No focal deficits Urinary Catheter: Yes Lee insert reason: Measure Accurate Output A/P Assessment and Plan Acute hypoxemic respiratory failure CHF exacerbation Probable pneumonia Severe sepsis Uncontrolled hypertension Acute kidney insufficiency Atrial fibrillation with RVR Morbid obesity Chronic A. fib on Coumadin Type 2 diabetes Hypertension History of CHF Obesity Peripheral neuropathy ARNOLDO DJD B/L Knees PLAN: NEURO: -Lortab PRN - Gabapentin 100mg TID (home medication) RESP: -Continue BiPAP 12/5 at night, secondary to ARNOLDO. -DuoNeb every 6 hours and when necessary -O2 via N/C 6 LPM currently -Pulmonary consulted Dr. Gil CV: - 2-D ECHO 04/09-EF 55-60%, no RWMA -Continue IV Lasix BID -Plavix, ASA continued GI: -1800 gamaliel ADA, heart healthy diet -Bowel regimen -IV Protonix, for GI prophylaxis -Zofran for nausea : -Monitor renal function closely -Lee catheter, monitor hourly output ID: -IV vancomycin and Azactam given in ED -Blood cultures04/11-Gp B beta Strep, Staph Aureus - sputum culture and urine culture pending -ID consulted- Dr. Branham follow up recommendations -Monitor WBC 8.0 HEME: -Monitor CBC, CMP, coags -INR 2.4 -Consult pharmacy for Coumadin dosing ENDO: -Electrolyte replacement per protocol -Glucose monitoring per ICU protocol -Sliding-scale insulin, will monitor glucose, with a regular diet will consider Levemir , if glucose levels become elevated MSK: - PT evaluation and treatout of bed to chair PROPH: -Bilateral lower extremity SCDs. Coumadin, Protonix LINES: -Utilize peripheral IVs, central line if needed Level 3 Physician Laurie Majano MD Apr 11, 2016 16:13
[2016-04-11] MEDS ORDERED: METOPROLOL TARTRATE 5 MG/5 ML VIAL IV PUSH ONE (18:30)
[2016-04-12] VITALS (10 sets, daily range): BP systolic 103–133; BP diastolic 55–83; PULSE 92–123; RESP 18–34; TEMP 97.6–98.6; O2SAT 87–98
[2016-04-12] MEDS: metroNIDAZOLE 500 MG TAB PO SCH ×3 (02:19→11:53)
[2016-04-12] MEDS: FUROSEMIDE 40 MG/4 ML VIAL IV PUSH SCH ×3 (02:21→21:10)
[2016-04-12] MEDS: FENOFIBRATE 145 MG TAB PO SCH ×2 (02:22→21:09)
[2016-04-12] MEDS: PRAVASTATIN SOD 80 MG TAB PO SCH ×2 (02:22→21:09)
[2016-04-12] MEDS: AZTREONAM INJ 2,000 MG in SODIUM CHLORIDE 0.9% INJ 100 ML IV SCH ×2 (02:22→11:26)
[2016-04-12] MEDS: CHLORHEXIDINE GLUCONATE 2 % 1 PACK (2 CLOTHS) TOP SCH (02:23)
[2016-04-12] MEDS: INSULIN ASPART SUPPLEMENTAL SCALE SQ SCH ×7 (04:00→22:52)
[2016-04-12 04:09] LABS: HEMATOCRIT 46.6 % (35.0-46.0); MEAN CORPUSCULAR HEMOGLOBIN 23.5 PG (27.0-34.0); MEAN CORPUSCULAR HGB CONC 31.8 % (32.0-36.0); PLATELET COUNT 152 TH/MM3 (150-450); RED CELL DISTRIBUTION WIDTH 20.5 % (11.6-17.2); WHITE BLOOD COUNT 7.3 TH/MM3 (4.0-11.0)
[2016-04-12 04:14] LABS: INTERNATIONAL NORMALIZED RATIO 2.4 RATIO; PROTHROMBIN TIME - PATIENT 27.2 SEC (9.8-11.6)
[2016-04-12 04:15] LABS: REVIEW FLAG FINAL
[2016-04-12 04:22] LABS: BICARBONATE 32.9 MEQ/L (21.0-32.0); POTASSIUM 3.7 MEQ/L (3.5-5.1)
--- NOTE | 2016-04-12 06:29 | RADRPT ---
EXAM DATE/TIME: 04/12/2016 05:31 [facility] COMPARISON: CHEST SINGLE AP, April 09, 2016, 4:50. INDICATIONS : Evaluate after respiratory failure. MEDICAL HISTORY : Diabetes mellitus type II. Cardiovascular disease. SURGICAL HISTORY : None. ENCOUNTER: Subsequent ACUITY: 3 days PAIN SCORE: Non-responsive. LOCATION: Bilateral chest FINDINGS: Clear lungs. Cardiomegaly. Degenerative changes of the spine. CONCLUSION: Clear lungs. Francisco Guillen MD on April 12, 2016 at 6:28 Board Certified Radiologist. This report was verified electronically.
[2016-04-12] MEDS: ACETAMINOPHEN/HYDROcodone 325 MG/5 MG TAB PO PRN ×2 (06:38→23:53)
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
[2016-04-12] MEDS: CHLORHEXIDINE 0.12% (ORAL KIT) 15 ML CUP MT SCH ×2 (08:00→20:00)
[2016-04-12] MEDS: RESP: ALBUTEROL 2.5 MG/IPRATROPIUM 0.5 MG NEB (SCH) NEB ×3 (08:47→21:53)
[2016-04-12] MEDS: PANTOPRAZOLE SODIUM 40 MG VIAL IV SCH (09:09)
[2016-04-12] MEDS: GABAPENTIN 100 MG CAP PO SCH ×3 (09:10→17:55)
[2016-04-12] MEDS: SODIUM CHLORIDE 0.9% FLUSH 5 ML FLUSH IVF SCH ×2 (09:10→21:10)
[2016-04-12] MEDS: LEVOFLOXACIN 250 MG TAB PO SCH (09:10)
[2016-04-12] MEDS: CLOPIDOGREL 75 MG TAB PO SCH (09:10)
[2016-04-12] MEDS: NYSTATIN 100,000 U/GM PWD 15 GM BTL TOPICAL SCH ×2 (09:11→21:00)
--- NOTE | 2016-04-12 15:35 | HHI.IDPN ---
Subjective Subjective Remarks is a 75 y/o morbidly obese CF with history of CHF,A. fib anticoagulated on Coumadin, hypertension, diabetes presented to the emergency department with shortness of breath that started on the afternoon prior to admission. ID following her for pneumonia, left leg cellulitis and Strep bacteremia. Overnight events reviewed. No fever No rash No diarrhea. Sitting up in bed. Antibiotics Ceftriaxone IV Vanco IV Lines Line sites with no e/o infection Past Medical History reviewed Allergies: Coded Allergies: Mercurial Derivatives (Verified Allergy, Severe, 03/12/14) Thorazine (Verified Allergy, Severe, 03/12/14) Penicillin (Verified Allergy, Intermediate, Rash, 03/12/14) Objective . Vital Signs Date Time Temp Pulse Resp B/P Pulse Ox O2 Delivery O2 Flow Rate FiO2 04/12/16 12:00 100 04/12/16 12:00 98.3 100 25 133/83 90 04/12/16 08:50 94 04/12/16 08:00 92 04/12/16 08:00 97.8 100 23 107/56 90 04/12/16 07:00 95 Nasal Cannula 6.00 04/12/16 04:10 96 60 04/12/16 04:00 97.6 103 18 103/55 98 04/12/16 04:00 103 04/12/16 00:00 97.8 121 22 112/64 96 04/12/16 00:00 123 04/12/16 00:00 97 60 04/11/16 20:00 98.7 112 29 128/75 94 04/11/16 20:00 112 04/11/16 19:58 93 Nasal Cannula 6.00 04/11/16 19:00 94 Nasal Cannula 6.00 04/11/16 16:00 97.9 90 29 121/68 91 04/11/16 16:00 90 04/11/16 04/11/16 04/12/16 15:00 23:00 07:00 Intake Total 690 ml 660 ml 400 ml Output Total 2125 ml 1200 ml 1300 ml Balance -1435 ml -540 ml -900 ml Intake Oral 520 ml 420 ml 240 ml IV Total 170 ml 240 ml 160 ml Output Urine Total 2125 ml 1200 ml 1300 ml Stool Total 0 ml 0 ml # Bowel Movements 0 . Laboratory Tests Test 04/11/16 04/12/16 03:29 03:38 White Blood Count 8.0 TH/MM3 7.3 TH/MM3 Red Blood Count 5.81 MIL/MM3 6.30 MIL/MM3 Hemoglobin 13.6 GM/DL 14.8 GM/DL Hematocrit 42.7 % 46.6 % Mean Corpuscular Volume 73.6 FL 74.0 FL Mean Corpuscular Hemoglobin 23.3 PG 23.5 PG Mean Corpuscular Hemoglobin 31.7 % 31.8 % Concent Red Cell Distribution Width 20.7 % 20.5 % Platelet Count 171 TH/MM3 152 TH/MM3 Mean Platelet Volume 9.3 FL 9.1 FL Neutrophils (%) (Auto) 82.7 % Lymphocytes (%) (Auto) 7.9 % Monocytes (%) (Auto) 7.7 % Eosinophils (%) (Auto) 1.4 % Basophils (%) (Auto) 0.3 % Neutrophils # (Auto) 6.6 TH/MM3 Lymphocytes # (Auto) 0.6 TH/MM3 Monocytes # (Auto) 0.6 TH/MM3 Eosinophils # (Auto) 0.1 TH/MM3 Basophils # (Auto) 0.0 TH/MM3 CBC Comment AUTO DIFF Differential Comment AUTO DIFF CONFIRMED Platelet Estimate NORMAL Platelet Morphology Comment NORMAL Laboratory Tests Test 04/11/16 04/12/16 03:29 03:38 Sodium Level 140 MEQ/L 139 MEQ/L Potassium Level 4.0 MEQ/L 3.7 MEQ/L Chloride Level 99 MEQ/L 100 MEQ/L Carbon Dioxide Level 35.2 MEQ/L 32.9 MEQ/L Anion Gap 6 MEQ/L 6 MEQ/L Blood Urea Nitrogen 41 MG/DL 35 MG/DL Creatinine 1.18 MG/DL 0.99 MG/DL Estimat Glomerular Filtration 45 ML/MIN 55 ML/MIN Rate Random Glucose 128 MG/DL 140 MG/DL Calcium Level 7.9 MG/DL 8.2 MG/DL Phosphorus Level 1.7 MG/DL 1.9 MG/DL Magnesium Level 2.1 MG/DL 2.0 MG/DL Microbiology Date/Time Procedure Status Source Growth 04/09/16 16:47 Aerobic Blood Culture - Preliminary Resulted Blood Peripheral NO GROWTH IN 3 DAYS 04/09/16 16:47 Anaerobic Blood Culture - Preliminary Resulted Blood Peripheral NO GROWTH IN 3 DAYS 04/09/16 16:54 Aerobic Blood Culture - Preliminary Resulted Blood Peripheral NO GROWTH IN 3 DAYS 04/09/16 16:54 Anaerobic Blood Culture - Preliminary Resulted Blood Peripheral NO GROWTH IN 3 DAYS Imaging Last Impressions Chest X-Ray 04/09/16 0600 Signed Impressions: Service Date/Time: Saturday, April 09, 2016 04:50 - CONCLUSION: Bibasilar infiltrates which are mildly increased compared to the prior study. Pulmonary venous congestion. Bello Wiggins MD Ankle X-Ray 04/09/16 0000 Signed Impressions: Service Date/Time: Saturday, April 09, 2016 15:43 - CONCLUSION: No acute fracture is identified but there is severe degenerative change and hypertrophic bone at the tibiotalar joint. There is also hypertrophic bone or fragmentation at the lateral malleolus. Given the appearance this could represent severe degenerative change versus Charcot joint. There is subcutaneous edema in the distal leg. Blu Loredo MD Chest CT 04/08/16 0000 Signed Impressions: Service Date/Time: Friday, April 08, 2016 21:14 - CONCLUSION: 1. Minimal subsegmental airspace disease at the lung bases. No significant pleural or pericardial effusion. Cardiomegaly with severe coronary calcifications. Alvaro Gresham MD Physical Exam GENERAL: Obese CF patient, in no apparent distress. SKIN: No generalized rashes. Rest per LE exam. HEAD: Atraumatic. Normocephalic. No temporal or scalp tenderness. EYES: Pupils equal round and reactive. Extraocular motions intact. No scleral icterus. No injection or drainage. ENT: Nose without bleeding, purulent drainage or septal hematoma. Throat without erythema, tonsillar hypertrophy or exudate. Uvula midline. Airway patent. NECK: Trachea midline. Supple, nontender, no meningeal signs. CARDIOVASCULAR: HS audible. RESPIRATORY: Clear to auscultation. Breath sounds equal bilaterally. GASTROINTESTINAL: Abdomen soft, non-tender, nondistended. MUSCULOSKELETAL: Bilateral LE with chronic skin changes s/o dermatitis or chronic cellulitis. Left ankle erythema noted, warmth noted and swelling. Some tenderness on movt of left ankle. Right ankle ok. Rest of the joints ok. NEUROLOGICAL: Awake and alert. Grossly non focal Psych: cooperative IV line sites with no e/o infection. Assessment & Plan Remarks Severe Sepsis present on admission Staph bacteremia and Strep B bacteremia likely skin source Pneumonia present on admission (Community acquired vs atypical) Left ankle cellulitis possible effusion. Acute resp failure on admission (was on Bipap now off ) Acute renal failure: sepsis, prerenal. Hypoalbuminemia DM 2 uncontrolled: compliance vs sepsis related uncontrolled Recs: Follow repeat blood cultures. Xray left ankle no effusion. DC flagyl oral. DC Azactam IV Continue Levaquin Continue Vanco IV (Patient PCN allergic and need coverage for both MSSA and Strep) d/w pt will need Colonoscopy, dental followup as these are risk factors in addition to her current cellulitis. Follow cultures Follow clinically. d/.w RN and patient. d/w : ok to elevate left leg and use RAH wraps for left foot. to cover for me this weekend. Verónica Branham MD Apr 12, 2016 15:35
[2016-04-12] MEDS: VANCOMYCIN INJ 1,750 MG in SODIUM CHLORID 0.9% 500 ML INJ 500 ML IV SCH (16:29)
[2016-04-12] MEDS: WARFARIN SOD 3 MG TAB PO SCH (16:30)
[2016-04-13] VITALS (11 sets, daily range): BP systolic 93–144; BP diastolic 63–76; PULSE 96–121; RESP 23–31; TEMP 97.6–98.7; O2SAT 91–96
[2016-04-13] MEDS: CHLORHEXIDINE GLUCONATE 2 % 1 PACK (2 CLOTHS) TOP SCH (04:00)
[2016-04-13] MEDS: INSULIN ASPART SUPPLEMENTAL SCALE SQ SCH ×5 (04:00→20:22)
[2016-04-13 05:35] LABS: INTERNATIONAL NORMALIZED RATIO 2.3 RATIO; PROTHROMBIN TIME - PATIENT 26.6 SEC (9.8-11.6)
[2016-04-13 05:53] LABS: BICARBONATE 33.5 MEQ/L (21.0-32.0); MAGNESIUM 1.9 MG/DL (1.5-2.5); POTASSIUM 3.8 MEQ/L (3.5-5.1)
[2016-04-13 06:06] LABS: HEMATOCRIT 45.7 % (35.0-46.0); MEAN CORPUSCULAR HEMOGLOBIN 23.6 PG (27.0-34.0); MEAN CORPUSCULAR HGB CONC 31.9 % (32.0-36.0); PLATELET COUNT 171 TH/MM3 (150-450); RED BLOOD COUNT 6.18 MIL/MM3 (4.00-5.30); RED CELL DISTRIBUTION WIDTH 20.3 % (11.6-17.2); WHITE BLOOD COUNT 7.7 TH/MM3 (4.0-11.0)
[2016-04-13 06:10] LABS: REVIEW FLAG FINAL
[2016-04-13] MEDS: RESP: ALBUTEROL 2.5 MG/IPRATROPIUM 0.5 MG NEB (SCH) NEB ×3 (08:00→20:23)
[2016-04-13] MEDS: CHLORHEXIDINE 0.12% (ORAL KIT) 15 ML CUP MT SCH ×2 (08:00→19:51)
[2016-04-13] MEDS: FUROSEMIDE 40 MG/4 ML VIAL IV PUSH SCH (09:22)
[2016-04-13] MEDS: GABAPENTIN 100 MG CAP PO SCH ×3 (09:22→17:44)
[2016-04-13] MEDS: LEVOFLOXACIN 250 MG TAB PO SCH (09:22)
[2016-04-13] MEDS: SODIUM CHLORIDE 0.9% FLUSH 5 ML FLUSH IVF SCH ×2 (09:22→20:23)
[2016-04-13] MEDS: PANTOPRAZOLE SODIUM 40 MG VIAL IV SCH (09:22)
[2016-04-13] MEDS: CLOPIDOGREL 75 MG TAB PO SCH (09:22)
[2016-04-13] MEDS: NYSTATIN 100,000 U/GM PWD 15 GM BTL TOPICAL SCH ×2 (09:22→20:23)
--- NOTE | 2016-04-13 12:44 | HHI.CCPN ---
Subjective Remarks/Hospital Course Patient is a 75-year-old obese white female with history of congestive heart failure, A. fib anticoagulated on Coumadin, hypertension, diabetes presented to the emergency department with shortness of breath since afternoon today. She admits that she has had a productive cough for the past 3-4 weeks. When EMS arrived the patient's oxygen saturation was around 80% on room air. Patient has a low-grade temperature of 100.4F here in the emergency department. She was placed on BiPAP which brought her oxygen saturation back up to the low 90s. She is initially hypertensive with a blood pressure of 213/98. Nitroglycerin paste was placed. Chest x-ray showed early pulmonary edema and right perihilar fullness on my review. CBC shows elevated white blood cell count of 16.4, slightly elevated hemoglobin and hematocrit. Differential shows 14% band neutrophils. INR is therapeutic at 3.1. CMP - mild hyperkalemia with a potassium of 5.4. creatinine of 1.26, BUN 30, BNP is 633. Patient is given Azactam and vancomycin IV empirically. Tmax in ED was 101.2F, heart rate 79 bpm, blood pressure 176/99. 04/09:TMax 100.3 The patient has been weaned from BiPAP to nasal cannula. Blood cultures show gram-positive cocci the patient currently on Atrezonam and Flagyl. The WBC markedly elevated and bandemia noted. ID consulted, appreciate recommendations. The patient complained of pain from her peripheral neuropathy in her lower extremities. 04/10: Infectious disease consulted yesterday, Dr. Branham placed patient on antibiotic regimen. The patient tolerated BiPAP during the night, during the day the patient was maintained on 5 L nasal cannula O2 sat ranging 92-93%. 04/11:The patient diuresed > 3 liters over the last 24 hours. Leukocytosis resolved. Pulmonology consulted , Dr. Gil appreciate recommendations. O2 remains at 6LPM to maintain O2 sat 93%. Subjective: 04/13 -2.8 L yesterday. Creatinine relatively stable. On 6 L NC and using Bipap at night. Slight nonproductive cough. Denies palpitations or chest pressure. About to get out of bed with RN and physical therapist. Wrapping LLE with josé miguel bandage and swelling of foot decreased. Per RN may be more warm than yesterday, but margins of erythema receding. Traced the margins of erythema. Patient denies increased pain. Afebrile. No leukocytosis. INR therapeutic 2.3. Objective Vital Signs Date Time Temp Pulse Resp B/P Pulse Ox O2 Delivery O2 Flow Rate FiO2 04/13/16 08:45 92 Nasal Cannula 6.00 04/13/16 08:00 98.0 109 24 117/66 04/13/16 01:35 60 Intake and Output 04/12/16 04/12/16 04/13/16 08:00 16:00 00:00 Intake Total 400 ml 801 ml 627 ml Output Total 1300 ml 1025 ml 800 ml Balance -900 ml -224 ml -173 ml Result Diagram: 04/13/16 0429 04/13/16 0421 Imaging Last Impressions Chest X-Ray 04/09/16 0600 Signed Impressions: Service Date/Time: Saturday, April 09, 2016 04:50 - CONCLUSION: Bibasilar infiltrates which are mildly increased compared to the prior study. Pulmonary venous congestion. Bello Wiggins MD Ankle X-Ray 04/09/16 0000 Signed Impressions: Service Date/Time: Saturday, April 09, 2016 15:43 - CONCLUSION: No acute fracture is identified but there is severe degenerative change and hypertrophic bone at the tibiotalar joint. There is also hypertrophic bone or fragmentation at the lateral malleolus. Given the appearance this could represent severe degenerative change versus Charcot joint. There is subcutaneous edema in the distal leg. Blu Loredo MD Chest CT 04/08/16 0000 Signed Impressions: Service Date/Time: Friday, April 08, 2016 21:14 - CONCLUSION: 1. Minimal subsegmental airspace disease at the lung bases. No significant pleural or pericardial effusion. Cardiomegaly with severe coronary calcifications. Alvaro Gresham MD Objective Remarks GENERAL: Well-nourished and well-developed morbidly obese female on N/C@ 6 LPM SKIN: Warm and dry. HEAD: Normocephalic and atraumatic. EYES: CAROL ANN. ENT: No nasal drainage noted. NECK: Supple and the trachea is midline. Unable to evaluate for JVD due to body habitus. CARDIOVASCULAR: irrregular with ectopy. No murmurs distant heart sounds RESPIRATORY: Bilateral breath sounds present without wheeze, rhonchi, rales. GASTROINTESTINAL: Abdomen is soft, protuberant non-tender, and nondistended. MUSCULOSKELETAL: Bilateral lower extremity edema 2+. Venous stasis noted bilateral lower extremities. Left lower extremity cellulitis overlying anterior left lower leg with some erythema extending infrapopliteal. Traced margins of erythema. No palpable cords. NEUROLOGICAL: Awake, alert, and oriented. Normal speech. No focal deficits A/P Assessment and Plan Acute hypoxemic respiratory failure CHF exacerbation Probable pneumonia Severe sepsis Uncontrolled hypertension Acute kidney insufficiency Atrial fibrillation with RVR Morbid obesity Chronic A. fib on Coumadin Type 2 diabetes Hypertension History of CHF Obesity Peripheral neuropathy ARNOLDO DJD B/L Knees PLAN: NEURO: Peripheral neuropathy -Lortab PRN - Gabapentin 100mg TID (home medication) RESP: Objective sleep apnea Acute CHF exacerbation Community acquired Pneumonia. -Continue BiPAP 12/ at night, secondary to ARNOLDO. -DuoNeb every 6 hours and when necessary -O2 via N/C 6 LPM currently -IS q2 hours awake, OOB. -Pulmonary consulted Dr. Gil -CXR -04/12 - improved bibasilar infiltrates and resolved vascular congestion CV: Probable chronic Diastolic heart failure Chronic atrial fibrillation Moderate pulmonary HTN, likely secondary to ARNOLDO. Hyperlipidemia - 2-D ECHO 04/09-EF 55-60%, no RWMA, mild to moderate TR, left atrial dilation -Cardiac cath 04/24/11 - Nonocclusive CAD, moderate pulmonary HTN, moderately reduced LVEF. -D/c lasix and resume torsemide 20 bid home med. -hold home dose lisinopril 20 bid for now due to current BP 110-130s. Will start betablocker first to help with rate control and then see if BP will tolerated addition of José Miguel-I. -Plavix 75 mg po daily -Continue fenofibrate F 145 mill grams by mouth daily at bedtime, pravastatin 80 mg by mouth daily at bedtime -Anticoagulation for atrial fibrillation with warfarin, pharmacy dosing, INR currently therapeutic at 2.3 GI: Morbid obesity -1800 gamaliel ADA, heart healthy diet -Bowel regimen. Last BM 04/10 -Zofran for nausea FEN/RENAL: Hyperkalemia (resolved) -Monitor renal function closely -Lee catheter, monitor hourly output while diuresing. ID: Acute left lower extremity cellulitis Group B strep bacteremia History of penicillin allergy -On antibiotics per ID, Dr. Nemani: Vancomycin 04/08 #6, Levaquin 04/09 #5 No vegetations on TTE 04/09, follow up blood cultures cleared Microbiology: out of 4 blood cultures positive for group B strep 04/09follow up blood cultures no growth to date 04/08insulin to a and B antigen negative 04/09urine cultureno growth today 04/09urine Legionella antigen negative HEME: -Chronic anticoagulation with warfarin due to history of A. fib -Monitor CBC, coags -Pharmacy consult for warfarin dosing with target INR 2-3. Currently therapeutic at 2.3 ENDO: -Medium dose Sliding-scale insulin ac/hs with 11 units coverage. Change to ac/ hs from accucheck q4 hours. Home med is lantus 45 units qhs. Will initiate detemir 5 units subcut qhs. MSK: - PT evaluation and treatout of bed to chair PROPH: -Bilateral lower extremity SCDs. Coumadin. Stress ulcer prophylaxis no longer necessary, d/c protonix. LINES: -Utilize peripheral IVs On NC. Bipap nocturnal. Transfer to floor. Hospitalist consult to assume care . Pulmonology following. Level 3 Leandra Snider MD Apr 13, 2016 12:44
--- NOTE | 2016-04-13 13:18 | HHI.IDPN ---
Subjective Subjective Remarks ID COVERAGE Notes reviewed Up in chair Currently on nasal O2 6L Last CXR read as clear - perihilar inifltrates better WBC normal No fever No rash No diarrhea. Antibiotics Levaquin Vanco IV Lines Line sites with no e/o infection Past Medical History reviewed Allergies: Coded Allergies: Mercurial Derivatives (Verified Allergy, Severe, 03/12/14) Thorazine (Verified Allergy, Severe, 03/12/14) Penicillin (Verified Allergy, Intermediate, Rash, 03/12/14) Objective . Vital Signs Date Time Temp Pulse Resp B/P Pulse Ox O2 Delivery O2 Flow Rate FiO2 04/13/16 08:45 92 Nasal Cannula 6.00 04/13/16 08:00 98.0 109 24 117/66 94 04/13/16 08:00 109 04/13/16 07:00 90 Nasal Cannula 6.00 04/13/16 04:43 Nasal Cannula 6.00 Humidified 04/13/16 04:30 94 Nasal Cannula 4.00 04/13/16 04:28 Nasal Cannula 4.00 04/13/16 04:00 97.7 113 23 114/68 96 04/13/16 04:00 107 04/13/16 01:35 94 60 04/13/16 00:00 103 04/13/16 00:00 98.7 121 27 144/68 94 04/12/16 22:18 Bi-Pap 60 04/12/16 22:10 96 60 04/12/16 21:55 91 Nasal Cannula 4.00 04/12/16 20:00 107 04/12/16 20:00 Nasal Cannula 6.00 04/12/16 20:00 98.6 118 34 115/58 90 04/12/16 16:00 114 04/12/16 16:00 98.0 114 32 110/72 87 04/12/16 04/12/16 04/13/16 15:00 23:00 07:00 Intake Total 801 ml 627 ml 434 ml Output Total 1025 ml 800 ml 800 ml Balance -224 ml -173 ml -366 ml Intake Oral 620 ml 540 ml 360 ml IV Total 181 ml 87 ml 74 ml Output Urine Total 1025 ml 800 ml 800 ml # Bowel Movements 0 0 . Laboratory Tests Test 04/12/16 04/13/16 03:38 04:29 White Blood Count 7.3 TH/MM3 7.7 TH/MM3 Red Blood Count 6.30 MIL/MM3 6.18 MIL/MM3 Hemoglobin 14.8 GM/DL 14.6 GM/DL Hematocrit 46.6 % 45.7 % Mean Corpuscular Volume 74.0 FL 74.0 FL Mean Corpuscular Hemoglobin 23.5 PG 23.6 PG Mean Corpuscular Hemoglobin 31.8 % 31.9 % Concent Red Cell Distribution Width 20.5 % 20.3 % Platelet Count 152 TH/MM3 171 TH/MM3 Mean Platelet Volume 9.1 FL 9.5 FL Laboratory Tests Test 04/12/16 04/13/16 03:38 04:21 Sodium Level 139 MEQ/L 139 MEQ/L Potassium Level 3.7 MEQ/L 3.8 MEQ/L Chloride Level 100 MEQ/L 98 MEQ/L Carbon Dioxide Level 32.9 MEQ/L 33.5 MEQ/L Anion Gap 6 MEQ/L 8 MEQ/L Blood Urea Nitrogen 35 MG/DL 39 MG/DL Creatinine 0.99 MG/DL 1.05 MG/DL Estimat Glomerular Filtration 55 ML/MIN 51 ML/MIN Rate Random Glucose 140 MG/DL 184 MG/DL Calcium Level 8.2 MG/DL 8.7 MG/DL Phosphorus Level 1.9 MG/DL 1.8 MG/DL Magnesium Level 2.0 MG/DL 1.9 MG/DL Imaging Last Impressions Chest X-Ray 04/09/16 0600 Signed Impressions: Service Date/Time: Saturday, April 09, 2016 04:50 - CONCLUSION: Bibasilar infiltrates which are mildly increased compared to the prior study. Pulmonary venous congestion. Bello Wiggins MD Ankle X-Ray 04/09/16 0000 Signed Impressions: Service Date/Time: Saturday, April 09, 2016 15:43 - CONCLUSION: No acute fracture is identified but there is severe degenerative change and hypertrophic bone at the tibiotalar joint. There is also hypertrophic bone or fragmentation at the lateral malleolus. Given the appearance this could represent severe degenerative change versus Charcot joint. There is subcutaneous edema in the distal leg. Blu Loredo MD Chest CT 04/08/16 0000 Signed Impressions: Service Date/Time: Friday, April 08, 2016 21:14 - CONCLUSION: 1. Minimal subsegmental airspace disease at the lung bases. No significant pleural or pericardial effusion. Cardiomegaly with severe coronary calcifications. Alvaro Gresham MD Physical Exam GENERAL: Awake and alert, in no apparent distress. SKIN: No generalized rashes. HEAD: Atraumatic. Normocephalic. No temporal or scalp tenderness. EYES: Pupils equal round and reactive. Extraocular motions intact. No scleral icterus. No injection or drainage. ENT: Nose without bleeding, purulent drainage. Moist mucosa. Throat without erythema, or exudate. Uvula midline. Airway patent. NECK: Trachea midline. Supple, nontender, no meningeal signs. CARDIOVASCULAR: HS audible. RESPIRATORY: Clear to auscultation. Breath sounds equal bilaterally. GASTROINTESTINAL: Abdomen soft, non-tender, nondistended. MUSCULOSKELETAL: Bilateral LE with chronic skin changes s/o dermatitis or chronic cellulitis. Left ankle erythema, with warmth and swelling. NEUROLOGICAL: Awake and alert. Grossly non focal Psych: cooperative IV line sites with no e/o infection. Assessment & Plan Remarks Severe Sepsis present on admission Staph bacteremia and Strep B bacteremia likely skin source Pneumonia present on admission (Community acquired vs atypical) Left ankle cellulitis possible effusion. Acute resp failure on admission (was on Bipap now off ) Acute renal failure: sepsis, prerenal. Hypoalbuminemia DM 2 uncontrolled: compliance vs sepsis related uncontrolled Recs: Follow C/S Continue Levaquin Continue Vanco IV (Patient PCN allergic and need coverage for both MSSA and Strep) Monitor progress Chandrika Bravo MD Apr 13, 2016 13:18
[2016-04-13] MEDS ORDERED: DEXTROSE 50% IN WATER 50 ML VIAL(D50) IV PUSH PRN (13:45)
[2016-04-13] MEDS ORDERED: GLUCAGON 1 MG/ML VIAL OTHER PRN (13:45)
[2016-04-13] MEDS ORDERED: PILL SPLITTER OTHER PRN (14:00)
[2016-04-13] MEDS: METOPROLOL TARTRATE 25 MG TAB PO SCH ×2 (15:26→20:23)
[2016-04-13] MEDS ORDERED: PHARMACY ORDERED LAB XX ONE (15:45)
[2016-04-13] MEDS: WARFARIN SOD 3 MG TAB PO SCH (17:10)
[2016-04-13] MEDS: VANCOMYCIN INJ 1,750 MG in SODIUM CHLORID 0.9% 500 ML INJ 500 ML IV SCH (17:43)
[2016-04-13] MEDS: FENOFIBRATE 145 MG TAB PO SCH (20:21)
[2016-04-13] MEDS: TORSEMIDE 20 MG TAB PO SCH (20:21)
[2016-04-13] MEDS: PRAVASTATIN SOD 80 MG TAB PO SCH (20:21)
[2016-04-13] MEDS ORDERED: INSULIN DETEMIR 100 UNITS/ML VIAL SQ SCH (21:00)
[2016-04-14] VITALS (11 sets, daily range): BP systolic 112–154; BP diastolic 56–83; PULSE 57–111; RESP 20–30; TEMP 97.5–98.2; O2SAT 92–97
[2016-04-14] MEDS: CHLORHEXIDINE GLUCONATE 2 % 1 PACK (2 CLOTHS) TOP SCH (03:48)
[2016-04-14] MEDS: METOPROLOL TARTRATE 25 MG TAB PO SCH ×3 (05:03→21:28)
[2016-04-14 05:13] LABS: AUTOMATED NEUTROPHIL # 6.2 TH/MM3 (1.8-7.7); BASOPHIL # 0.1 TH/MM3 (0-0.2); BASOPHIL % 0.7 % (0.0-2.0); EOSINOPHIL # 0.2 TH/MM3 (0-0.4); HEMATOCRIT 47.4 % (35.0-46.0); LYMPH % 12.3 % (9.0-44.0); MEAN CELL VOLUME 74.3 FL (80.0-100.0); MEAN CORPUSCULAR HEMOGLOBIN 23.3 PG (27.0-34.0); MEAN CORPUSCULAR HGB CONC 31.4 % (32.0-36.0); MONO % 9.8 % (0.0-8.0); NEUT % 74.2 % (16.0-70.0); PLATELET COUNT 214 TH/MM3 (150-450); RED BLOOD COUNT 6.38 MIL/MM3 (4.00-5.30); RED CELL DISTRIBUTION WIDTH 20.2 % (11.6-17.2); WHITE BLOOD COUNT 8.3 TH/MM3 (4.0-11.0)
[2016-04-14 05:16] LABS: INTERNATIONAL NORMALIZED RATIO 2.3 RATIO; PROTHROMBIN TIME - PATIENT 26.1 SEC (9.8-11.6)
[2016-04-14 05:24] LABS: HEMO FLAGS AUTO DIFF
[2016-04-14 05:25] LABS: BICARBONATE 39.6 MEQ/L (21.0-32.0); POTASSIUM 3.8 MEQ/L (3.5-5.1)
[2016-04-14] MEDS: INSULIN ASPART SUPPLEMENTAL SCALE SQ SCH ×4 (06:03→21:23)
[2016-04-14 06:34] LABS: OVALOCYTES 1+ (NORMAL); SCAN/DIFF AUTO DIFF CONFIRMED
--- NOTE | 2016-04-14 06:38 | HHI.CCPN ---
Subjective Remarks/Hospital Course This Progress Note is intended for 04/12/2016 Patient is a 75-year-old obese white female with history of congestive heart failure, A. fib anticoagulated on Coumadin, hypertension, diabetes presented to the emergency department with shortness of breath since afternoon today. She admits that she has had a productive cough for the past 3-4 weeks. When EMS arrived the patient's oxygen saturation was around 80% on room air. Patient has a low-grade temperature of 100.4F here in the emergency department. She was placed on BiPAP which brought her oxygen saturation back up to the low 90s. She is initially hypertensive with a blood pressure of 213/98. Nitroglycerin paste was placed. Chest x-ray showed early pulmonary edema and right perihilar fullness on my review. CBC shows elevated white blood cell count of 16.4, slightly elevated hemoglobin and hematocrit. Differential shows 14% band neutrophils. INR is therapeutic at 3.1. CMP - mild hyperkalemia with a potassium of 5.4. creatinine of 1.26, BUN 30, BNP is 633. Patient is given Azactam and vancomycin IV empirically. Tmax in ED was 101.2F, heart rate 79 bpm, blood pressure 176/99. 04/09:TMax 100.3 The patient has been weaned from BiPAP to nasal cannula. Blood cultures show gram-positive cocci the patient currently on Atrezonam and Flagyl. The WBC markedly elevated and bandemia noted. ID consulted, appreciate recommendations. The patient complained of pain from her peripheral neuropathy in her lower extremities. 04/10: Infectious disease consulted yesterday, Dr. Branham placed patient on antibiotic regimen. The patient tolerated BiPAP during the night, during the day the patient was maintained on 5 L nasal cannula O2 sat ranging 92-93%. 04/11:The patient diuresed > 3 liters over the last 24 hours. Leukocytosis resolved. Pulmonology consulted , Dr. Gil appreciate recommendations. O2 remains at 6LPM to maintain O2 sat 93%. 04/12:Continued edematous reddened LLE. Discussed with ID will place robel bandage.Case management consulted for discharge planning for Rehabilitation facility. Subjective: 04/13 -2.8 L yesterday. Creatinine relatively stable. On 6 L NC and using Bipap at night. Slight nonproductive cough. Denies palpitations or chest pressure. About to get out of bed with RN and physical therapist. Wrapping LLE with robel bandage and swelling of foot decreased. Per RN may be more warm than yesterday, but margins of erythema receding. Traced the margins of erythema. Patient denies increased pain. Afebrile. No leukocytosis. INR therapeutic 2.3. Objective Vital Signs Date Time Temp Pulse Resp B/P Pulse Ox O2 Delivery O2 Flow Rate FiO2 04/14/16 04:11 94 50 04/14/16 04:00 96 04/14/16 04:00 97.7 24 112/64 04/13/16 20:25 Nasal Cannula 6.00 Intake and Output 04/13/16 04/13/16 04/14/16 08:00 16:00 00:00 Intake Total 434 ml 1113 ml 767 ml Output Total 800 ml 1575 ml 1000 ml Balance -366 ml -462 ml -233 ml Result Diagram: 04/14/16 0408 04/14/16 0408 Imaging Last Impressions Chest X-Ray 04/09/16 0600 Signed Impressions: Service Date/Time: Saturday, April 09, 2016 04:50 - CONCLUSION: Bibasilar infiltrates which are mildly increased compared to the prior study. Pulmonary venous congestion. Bello Wiggins MD Ankle X-Ray 04/09/16 0000 Signed Impressions: Service Date/Time: Saturday, April 09, 2016 15:43 - CONCLUSION: No acute fracture is identified but there is severe degenerative change and hypertrophic bone at the tibiotalar joint. There is also hypertrophic bone or fragmentation at the lateral malleolus. Given the appearance this could represent severe degenerative change versus Charcot joint. There is subcutaneous edema in the distal leg. Blu Loredo MD Chest CT 04/08/16 0000 Signed Impressions: Service Date/Time: Friday, April 08, 2016 21:14 - CONCLUSION: 1. Minimal subsegmental airspace disease at the lung bases. No significant pleural or pericardial effusion. Cardiomegaly with severe coronary calcifications. Alvaro Gresham MD Objective Remarks GENERAL: Well-nourished and well-developed morbidly obese female on N/C@ 6 LPM SKIN: Warm and dry. HEAD: Normocephalic and atraumatic. EYES: CAROL ANN. ENT: No nasal drainage noted. NECK: Supple and the trachea is midline. Unable to evaluate for JVD due to body habitus. CARDIOVASCULAR: irrregular with ectopy. No murmurs distant heart sounds RESPIRATORY: Bilateral breath sounds present without wheeze, rhonchi, rales. GASTROINTESTINAL: Abdomen is soft, protuberant non-tender, and nondistended. MUSCULOSKELETAL: Bilateral lower extremity edema 2+. Venous stasis noted bilateral lower extremities. Left lower extremity cellulitis overlying anterior left lower leg with some erythema extending infrapopliteal. Traced margins of erythema. No palpable cords. NEUROLOGICAL: Awake, alert, and oriented. Normal speech. No focal deficits Urinary Catheter: Yes Lee insert reason: ICU Pt Getting Diuretics A/P Assessment and Plan Acute hypoxemic respiratory failure CHF exacerbation Probable pneumonia Severe sepsis Uncontrolled hypertension Acute kidney insufficiency Atrial fibrillation with RVR Morbid obesity Chronic A. fib on Coumadin Type 2 diabetes Hypertension History of CHF Obesity Peripheral neuropathy ARNOLDO DJD B/L Knees PLAN: NEURO: Peripheral neuropathy -Lortab PRN - Gabapentin 100mg TID (home medication) RESP: Objective sleep apnea Acute CHF exacerbation Community acquired Pneumonia. -Continue BiPAP / at night, secondary to ARNOLDO. -DuoNeb every 6 hours and when necessary -O2 via N/C 6 LPM currently -IS q2 hours awake, OOB. -Pulmonary consulted Dr. Gil -CXR -04/12 - improved bibasilar infiltrates and resolved vascular congestion CV: Probable chronic Diastolic heart failure Chronic atrial fibrillation Moderate pulmonary HTN, likely secondary to ARNOLDO. Hyperlipidemia - 2-D ECHO 04/09-EF 55-60%, no RWMA, mild to moderate TR, left atrial dilation -Cardiac cath 04/24/11 - Nonocclusive CAD, moderate pulmonary HTN, moderately reduced LVEF. -Lasix 40mg BID -Plavix 75 mg po daily -Anticoagulation for atrial fibrillation with warfarin, pharmacy dosing, INR currently therapeutic at 2.3 GI: Morbid obesity -1800 gamaliel ADA, heart healthy diet -Platform Material Handling Supervisor consulted -Bowel regimen. Last BM 04/10 -Zofran for nausea FEN/RENAL: Hyperkalemia (resolved) -Monitor renal function closely -Lee catheter, monitor hourly output while diuresing. ID: Acute left lower extremity cellulitis Group B strep bacteremia History of penicillin allergy -On antibiotics per ID, Dr. Branham: Vancomycin 04/08 #6, Levaquin 04/09 #5 No vegetations on TTE 04/09, follow up blood cultures cleared Microbiology: out of 4 blood cultures positive for group B strep 04/09follow up blood cultures no growth to date 04/08insulin to a and B antigen negative 04/09urine cultureno growth today 04/09urine Legionella antigen negative HEME: -Chronic anticoagulation with warfarin due to history of A. fib -Monitor CBC, coags -Pharmacy consult for warfarin dosing with target INR 2-3. Currently therapeutic at 2.3 ENDO: -Medium dose Sliding-scale insulin ac/hs with 11 units coverage. Change to ac/ hs from accucheck q4 hours. Home med is lantus 45 units qhs. Will initiate detemir 5 units subcut qhs. MSK: - PT evaluation and treatout of bed to chair PROPH: -Bilateral lower extremity SCDs. Coumadin. Protonix. LINES: -Utilize peripheral IVs On NC. Bipap at night. Pulmonology following. Level 3 Physician Laurie Majano MD Apr 14, 2016 06:37
[2016-04-14] MEDS: CHLORHEXIDINE 0.12% (ORAL KIT) 15 ML CUP MT SCH ×2 (08:00→20:00)
[2016-04-14] MEDS: RESP: ALBUTEROL 2.5 MG/IPRATROPIUM 0.5 MG NEB (SCH) NEB ×3 (08:00→19:47)
[2016-04-14] MEDS: NYSTATIN 100,000 U/GM PWD 15 GM BTL TOPICAL SCH ×2 (09:00→21:00)
[2016-04-14] MEDS: SODIUM CHLORIDE 0.9% FLUSH 5 ML FLUSH IVF SCH ×2 (09:17→21:23)
[2016-04-14] MEDS: TORSEMIDE 20 MG TAB PO SCH ×2 (09:17→17:58)
[2016-04-14] MEDS: PANTOPRAZOLE SODIUM 40 MG VIAL IV SCH (09:17)
[2016-04-14] MEDS: GABAPENTIN 100 MG CAP PO SCH ×3 (09:17→17:58)
[2016-04-14] MEDS: CLOPIDOGREL 75 MG TAB PO SCH (09:18)
--- NOTE | 2016-04-14 11:07 | HHI.IDPN ---
Subjective Subjective Remarks ID COVERAGE Notes reviewed Currently on nasal O2 Not SOB L leg seems more red according to patient Last CXR read as clear - perihilar inifltrates better WBC normal No fever No rash No diarrhea. Antibiotics Levaquin Vanco IV Lines Line sites with no e/o infection Past Medical History reviewed Allergies: Coded Allergies: Mercurial Derivatives (Verified Allergy, Severe, 03/12/14) Thorazine (Verified Allergy, Severe, 03/12/14) Penicillin (Verified Allergy, Intermediate, Rash, 03/12/14) Objective . Vital Signs Date Time Temp Pulse Resp B/P Pulse Ox O2 Delivery O2 Flow Rate FiO2 04/14/16 04:11 94 50 04/14/16 04:00 96 04/14/16 04:00 97.7 96 24 112/64 96 04/14/16 00:00 97.5 95 30 120/66 92 04/14/16 00:00 95 04/13/16 23:50 96 50 04/13/16 20:25 93 Nasal Cannula 6.00 04/13/16 20:00 97.8 96 28 127/76 95 04/13/16 20:00 104 04/13/16 19:00 95 Nasal Cannula 6.00 04/13/16 16:00 118 04/13/16 16:00 97.6 118 31 93/63 91 04/13/16 12:00 98.2 114 26 114/69 91 04/13/16 12:00 114 04/13/16 04/13/16 04/14/16 15:00 23:00 07:00 Intake Total 1113 ml 767 ml 320 ml Output Total 1575 ml 1000 ml 1900 ml Balance -462 ml -233 ml -1580 ml Intake Oral 1050 ml 250 ml 250 ml IV Total 63 ml 517 ml 70 ml Output Urine Total 1575 ml 1000 ml 1900 ml . Laboratory Tests Test 04/13/16 04/14/16 04:29 04:08 White Blood Count 7.7 TH/MM3 8.3 TH/MM3 Red Blood Count 6.18 MIL/MM3 6.38 MIL/MM3 Hemoglobin 14.6 GM/DL 14.9 GM/DL Hematocrit 45.7 % 47.4 % Mean Corpuscular Volume 74.0 FL 74.3 FL Mean Corpuscular Hemoglobin 23.6 PG 23.3 PG Mean Corpuscular Hemoglobin 31.9 % 31.4 % Concent Red Cell Distribution Width 20.3 % 20.2 % Platelet Count 171 TH/MM3 214 TH/MM3 Mean Platelet Volume 9.5 FL 9.1 FL Neutrophils (%) (Auto) 74.2 % Lymphocytes (%) (Auto) 12.3 % Monocytes (%) (Auto) 9.8 % Eosinophils (%) (Auto) 3.0 % Basophils (%) (Auto) 0.7 % Neutrophils # (Auto) 6.2 TH/MM3 Lymphocytes # (Auto) 1.0 TH/MM3 Monocytes # (Auto) 0.8 TH/MM3 Eosinophils # (Auto) 0.2 TH/MM3 Basophils # (Auto) 0.1 TH/MM3 CBC Comment AUTO DIFF Differential Comment AUTO DIFF CONFIRMED Ovalocytes 1+ Laboratory Tests Test 04/13/16 04/14/16 04:21 04:08 Sodium Level 139 MEQ/L 141 MEQ/L Potassium Level 3.8 MEQ/L 3.8 MEQ/L Chloride Level 98 MEQ/L 97 MEQ/L Carbon Dioxide Level 33.5 MEQ/L 39.6 MEQ/L Anion Gap 8 MEQ/L 4 MEQ/L Blood Urea Nitrogen 39 MG/DL 35 MG/DL Creatinine 1.05 MG/DL 1.02 MG/DL Estimat Glomerular Filtration 51 ML/MIN 53 ML/MIN Rate Random Glucose 184 MG/DL 157 MG/DL Calcium Level 8.7 MG/DL 8.8 MG/DL Phosphorus Level 1.8 MG/DL Magnesium Level 1.9 MG/DL Imaging Last Impressions Chest X-Ray 04/09/16 0600 Signed Impressions: Service Date/Time: Saturday, April 09, 2016 04:50 - CONCLUSION: Bibasilar infiltrates which are mildly increased compared to the prior study. Pulmonary venous congestion. Bello Wiggins MD Ankle X-Ray 04/09/16 0000 Signed Impressions: Service Date/Time: Saturday, April 09, 2016 15:43 - CONCLUSION: No acute fracture is identified but there is severe degenerative change and hypertrophic bone at the tibiotalar joint. There is also hypertrophic bone or fragmentation at the lateral malleolus. Given the appearance this could represent severe degenerative change versus Charcot joint. There is subcutaneous edema in the distal leg. Blu Loredo MD Chest CT 04/08/16 0000 Signed Impressions: Service Date/Time: Friday, April 08, 2016 21:14 - CONCLUSION: 1. Minimal subsegmental airspace disease at the lung bases. No significant pleural or pericardial effusion. Cardiomegaly with severe coronary calcifications. Alvaro Gresham MD Physical Exam GENERAL: Awake and alert, NAD SKIN: No generalized rashes. HEAD: Atraumatic. Normocephalic. No temporal or scalp tenderness. EYES: Pupils equal round and reactive. Extraocular motions intact. No scleral icterus. No injection or drainage. ENT: Nose without bleeding, purulent drainage. Moist mucosa. Throat without erythema, or exudate. Uvula midline. Airway patent. NECK: Trachea midline. Supple, nontender, no meningeal signs. CARDIOVASCULAR: HS audible. RESPIRATORY: Clear to auscultation. Breath sounds equal bilaterally. GASTROINTESTINAL: Abdomen soft, non-tender, nondistended. MUSCULOSKELETAL: Bilateral LE with chronic skin changes s/o dermatitis or chronic cellulitis. LLE - edema looks better, area of redness same, intensity a little worse. I reapplied the RAH wrap NEUROLOGICAL: Awake and alert. Grossly non focal Psych: cooperative IV line sites with no e/o infection. Assessment & Plan Remarks Severe Sepsis present on admission Staph bacteremia and Strep B bacteremia likely skin source Pneumonia present on admission (Community acquired vs atypical) Left LE cellulitis Acute resp failure on admission (was on Bipap now off ) Acute renal failure: sepsis, prerenal. Hypoalbuminemia DM 2 uncontrolled: compliance vs sepsis related uncontrolled Recs: Follow C/S Continue Levaquin Continue Vanco IV (Patient PCN allergic and need coverage for both MSSA and Strep) Monitor progress Edema control D/W RN Spoke with Chandrika Aragon MD Apr 14, 2016 11:07
[2016-04-14] MEDS: LEVOFLOXACIN 500 MG TAB PO SCH (11:37)
[2016-04-14] MEDS: WARFARIN SOD 3 MG TAB PO SCH (15:45)
[2016-04-14] MEDS: VANCOMYCIN INJ 1,750 MG in SODIUM CHLORID 0.9% 500 ML INJ 500 ML IV SCH (15:45)
[2016-04-14] MEDS ORDERED: ALLOPURINOL 100 MG TAB PO ONE (17:45)
--- NOTE | 2016-04-14 17:48 | HHI.PR ---
Subjective Remarks patient seen today around noon. She says that her shortness of breath is improving. She denies any chest pain. She reports that her left lower extremity is painful, at baseline. She reports injury to left ankle years ago, previously with hardware, however subsequently removed.positive bowel movement today. Objective Vital Signs Date Time Temp Pulse Resp B/P Pulse Ox O2 Delivery O2 Flow Rate FiO2 04/14/16 16:00 98.2 100 23 122/67 93 04/14/16 16:00 100 04/14/16 12:00 102 04/14/16 12:00 97.8 102 20 132/83 93 04/14/16 08:00 97.5 95 22 112/71 95 04/14/16 08:00 87 04/14/16 07:00 94 Nasal Cannula 6.00 04/14/16 04:11 94 50 04/14/16 04:00 96 04/14/16 04:00 97.7 96 24 112/64 96 04/14/16 00:00 97.5 95 30 120/66 92 04/14/16 00:00 95 04/13/16 23:50 96 50 04/13/16 20:25 93 Nasal Cannula 6.00 04/13/16 20:00 97.8 96 28 127/76 95 04/13/16 20:00 104 04/13/16 19:00 95 Nasal Cannula 6.00 I/O 04/13/16 04/13/16 04/13/16 04/14/16 04/14/16 04/14/16 07:00 15:00 23:00 07:00 15:00 23:00 Intake Total 434 ml 1113 ml 767 ml 320 ml 810 ml Output Total 800 ml 1575 ml 1000 ml 1900 ml 1825 ml Balance -366 ml -462 ml -233 ml -1580 ml -1015 ml Intake Oral 360 ml 1050 ml 250 ml 250 ml 720 ml IV Total 74 ml 63 ml 517 ml 70 ml 90 ml Output Urine Total 800 ml 1575 ml 1000 ml 1900 ml 1825 ml # Bowel Movements 0 2 Result Diagram: 04/14/1640704/14/16407 Objective Remarks GENERAL: sitting up in bed. obese.Appears comfortable. Alert and oriented 3. SKIN: Warm and dry. HEAD: Normocephalic. EYES: No scleral icterus. No injection or drainage. NECK: Supple, trachea midline. No JVD. CARDIOVASCULAR: Regular rate and rhythm without murmurs, gallops, or rubs. RESPIRATORY: Breath sounds equal bilaterally. No accessory muscle use. GASTROINTESTINAL: Abdomen soft, non-tender, nondistended. MUSCULOSKELETAL: No cyanosis. patient does have chronic appearing edema left lower extremity. Faint erythema and effusion around the ankle joint. patient indicates that this is normal for her. No broken skin. No blistering. BACK: Nontender without obvious deformity. No CVA tenderness. A/P Assessment and Plan RESP: //Obstructive sleep apnea //Acute CHF exacerbation //Community acquired Pneumonia. -Continue BiPAP 02/18 at night, secondary to ARNOLDO. -DuoNeb every 6 hours and when necessary -O2 via N/C 6 LPM currently -IS q2 hours awake, OOB. -Pulmonary consulted Dr. Gil -CXR -04/12 - improved bibasilar infiltrates and resolved vascular congestion -04/14 Respiratory status improving. Appreciate pulmonology assistance. CV: //Probable chronic Diastolic heart failure //Chronic atrial fibrillation //Moderate pulmonary HTN, likely secondary to ARNOLDO. //Hyperlipidemia //HTN - 2-D ECHO 04/09-EF 55-60%, no RWMA, mild to moderate TR, left atrial dilation -Cardiac cath 04/24/11 - Nonocclusive CAD, moderate pulmonary HTN, moderately reduced LVEF. -Lasix 40mg BID -Plavix 75 mg po daily -04/14. Continue anticoagulation. INR therapeutic 2.3. Patient appears to be on 100 mg metoprolol twice daily at home. We'll increase metoprolol here to 50 mg twice daily. She appears to be on digoxin at home. We'll obtain level. Consult survey research manager. Dr. Gamez. GI: //Morbid obesity -1800 gamaliel ADA, heart healthy diet -Church History Professor consulted -Bowel regimen. Last BM 04/10 -Zofran for nausea FEN/RENAL: //Hyperkalemia (resolved) -Monitor renal function closely -04/14. Continue with diuresis. Lee catheter, monitor hourly output while diuresing. ID: //Acute on chronic left lower extremity cellulitis //Group B strep bacteremia //History of penicillin allergy -On antibiotics per ID, Dr. Branham: -Vancomycin 04/08current - Levaquin 04/09current No vegetations on TTE 04/09, follow up blood cultures cleared -Continue antibiotics as per infectious disease. No fevers. -04/14 patient states that left ankle has been inflamed for years. No history of gout. Patient states that there is no actual ankle joint and left after injury years ago. Possible involvement of gout. Uric acid ordered. Start low- dose allopurinol. If uric acid elevated, we'll start colchicine. Microbiology: out of 4 blood cultures positive for group B strep 04/09follow up blood cultures no growth 04/08influenza a and B antigen negative 04/09urine cultureno growth 04/09urine Legionella antigen negative //Diabetes mellitus. -Continue Medium dose Sliding-scale insulin ac/hs with 11 units coverage. Change to ac/hs from accucheck q4 hours. -Home med is lantus 45 units qhs. -04/14. We'll increase Levemir to 10 units at bedtime. Continue to monitor. //Peripheral neuropathy. Chronic. -Lortab PRN - Gabapentin 100mg TID (home medication) PROPH: -Bilateral lower extremity SCDs. Coumadin. Protonix. Discharge Planning patient lives by herself in a trailer. The trailer has a ramp. She has a right scooter, as well as a walker. -Patient would likely benefit from rehabilitation. Giancarlo Francis MD Apr 14, 2016 17:48
[2016-04-14 18:50] LABS: DIGOXIN 0.1 NG/ML (0.8-2.0); URIC ACID 9.5 MG/DL (2.6-6.0)
[2016-04-14] MEDS: FENOFIBRATE 145 MG TAB PO SCH (21:22)
[2016-04-14] MEDS: ACETAMINOPHEN/HYDROcodone 325 MG/5 MG TAB PO PRN (21:22)
[2016-04-14] MEDS: PRAVASTATIN SOD 80 MG TAB PO SCH (21:22)
[2016-04-14] MEDS: INSULIN DETEMIR 100 UNITS/ML VIAL SQ SCH (21:23)
[2016-04-15] VITALS (10 sets, daily range): BP systolic 116–134; BP diastolic 59–80; PULSE 62–119; RESP 18–20; TEMP 98.1–99.1; O2SAT 90–98
[2016-04-15] MEDS: CHLORHEXIDINE GLUCONATE 2 % 1 PACK (2 CLOTHS) TOP SCH (04:00)
[2016-04-15 06:33] LABS: INTERNATIONAL NORMALIZED RATIO 2.3 RATIO
[2016-04-15 06:43] LABS: BICARBONATE 40.1 MEQ/L (21.0-32.0); MAGNESIUM 1.6 MG/DL (1.5-2.5); POTASSIUM 3.7 MEQ/L (3.5-5.1)
[2016-04-15] MEDS: INSULIN ASPART SUPPLEMENTAL SCALE SQ SCH ×4 (07:00→20:50)
--- NOTE | 2016-04-15 07:08 | MB ---
cc: KESHAVJOHNNYLEO DATE OF CONSULTATION 04/14/2016 HISTORY OF PRESENT ILLNESS Ms. Crooks is a 75-year-old white female, patient of Dr. Gamez with a history of morbid obesity, congestive heart failure, chronic atrial fibrillation. She has had progressive shortness of breath over the last several weeks associated with low-grade temperature and pleuritic chest discomfort. She saw a physician this morning and was admitted for further management. She complains of chronic lower extremity edema. She was diagnosed with pneumonia and started on antibiotics. PAST MEDICAL HISTORY Positive for - 1. Diabetes mellitus. 2. Chronic coronary insufficiency. 3. Hypertension. 4. Chronic atrial fibrillation on anticoagulation. 5. Congestive heart failure. 6. History of cholecystectomy. MEDICATIONS 1. Allopurinol. 2. Metoprolol. 3. Insulin. 4. Levofloxacin. 5. Torsemide. 6. Plavix. 7. Protonix. 9. Vancomycin. 10. Warfarin. 11. Pravastatin. 12. Fenofibrate. 13. Gabapentin. ALLERGIES THORAZINE. PENICILLIN. MERCURY DERIVATIVES. SOCIAL HISTORY The patient does not smoke but used to smoke in the past. She does not drink alcohol. She is single. FAMILY HISTORY Positive for heart failure in her father. REVIEW OF SYSTEMS Otherwise negative. PHYSICAL EXAMINATION VITAL SIGNS: Blood pressure 120/58, pulse 86 and irregular. HEENT: Negative. NECK: 2+ carotid upstrokes. No bruits. LUNGS: With decreased breath sounds. A few rhonchi. HEART: Irregular with a 2/6 systolic murmur. No gallop. ABDOMEN: Soft. No bruits. Obese. EXTREMITIES: With bilateral pitting 2+ edema. There is chronic venous stasis. There are venous varicosities. NEUROLOGIC: Exam was grossly nonfocal. EKG Reviewed and showed atrial fibrillation, left axis, aberrant dips, nonspecific ST changes. Delayed R-wave progression in precordial leads. LABS Hemoglobin 14.9. Potassium 3.8, creatinine 1.0. Troponin 0.02 and 0.05. ECHOCARDIOGRAM Preserved left ventricular systolic function with an ejection fraction of 55-60% . No segmental wall motion abnormalities. Mild to moderate tricuspid regurgitation. Mild left atrial enlargement. DIAGNOSES 1. Acute exacerbation of chronic diastolic congestive heart failure. 2. Pneumonia. 3. Sleep apnea. 4. Chronic atrial fibrillation. 5. Hypertension. 6. Dyslipidemia. 7. Morbid obesity. 8. Renal insufficiency. 9. Left lower extremity cellulitis. DISPOSITION Ms. Crooks will be monitored on telemetry. She is undergoing pulmonary evaluation. She will continue antibiotics as outlined by Infectious Disease. Her echocardiogram showed preserved left ventricular systolic function. Her congestive heart failure is likely diastolic in origin. I recommend to continue diuresis with Torsemide. I also recommend to continue chronic anticoagulation with warfarin. Continue aggressive medical management of cardiac risk factors including dyslipidemia. Dr. Gamez, her primary outer diameter grinder, will take over her care tomorrow. Rocky Kelly MD OQ/SSB /8:04 PM /6:42 AM MTDD
[2016-04-15 07:17] LABS: AUTOMATED NEUTROPHIL # 7.6 TH/MM3 (1.8-7.7); BASOPHIL % 0.5 % (0.0-2.0); EOSINOPHIL # 0.2 TH/MM3 (0-0.4); HEMATOCRIT 48.4 % (35.0-46.0); LYMPH % 8.6 % (9.0-44.0); LYMPHOCYTE # 0.8 TH/MM3 (1.0-4.8); MEAN CELL VOLUME 73.8 FL (80.0-100.0); MEAN CORPUSCULAR HEMOGLOBIN 23.3 PG (27.0-34.0); MEAN CORPUSCULAR HGB CONC 31.6 % (32.0-36.0); MONO % 9.1 % (0.0-8.0); NEUT % 79.8 % (16.0-70.0); PLATELET COUNT 249 TH/MM3 (150-450); RED BLOOD COUNT 6.56 MIL/MM3 (4.00-5.30); RED CELL DISTRIBUTION WIDTH 19.8 % (11.6-17.2); WHITE BLOOD COUNT 9.5 TH/MM3 (4.0-11.0)
[2016-04-15 07:21] LABS: HEMO FLAGS AUTO DIFF
[2016-04-15] MEDS: CHLORHEXIDINE 0.12% (ORAL KIT) 15 ML CUP MT SCH (08:00)
[2016-04-15] MEDS: RESP: ALBUTEROL 2.5 MG/IPRATROPIUM 0.5 MG NEB (SCH) NEB ×3 (08:40→19:45)
[2016-04-15 08:45] LABS: OVALOCYTES 1+ (NORMAL); SCAN/DIFF AUTO DIFF CONFIRMED
[2016-04-15] MEDS: SODIUM CHLORIDE 0.9% FLUSH 5 ML FLUSH IVF SCH ×2 (09:35→20:49)
[2016-04-15] MEDS: TORSEMIDE 20 MG TAB PO SCH ×2 (09:35→18:57)
[2016-04-15] MEDS: PANTOPRAZOLE SODIUM 40 MG VIAL IV SCH (09:35)
[2016-04-15] MEDS: METOPROLOL TARTRATE 25 MG TAB PO SCH (09:36)
[2016-04-15] MEDS: NYSTATIN 100,000 U/GM PWD 15 GM BTL TOPICAL SCH ×2 (09:36→20:50)
[2016-04-15] MEDS: CLOPIDOGREL 75 MG TAB PO SCH (09:36)
[2016-04-15] MEDS: LEVOFLOXACIN 500 MG TAB PO SCH (09:36)
[2016-04-15] MEDS: ALLOPURINOL 100 MG TAB PO SCH (09:36)
[2016-04-15] MEDS: GABAPENTIN 100 MG CAP PO SCH ×3 (09:36→18:58)
[2016-04-15] MEDS ORDERED: METOPROLOL TARTRATE 50 MG TAB PO ONE (10:15)
--- NOTE | 2016-04-15 13:06 | HHI.IDPN ---
Subjective Subjective Remarks ID COVERAGE Notes reviewed Currently on nasal O2 Not SOB WBC normal No fever No rash No diarrhea. Antibiotics Levaquin Vanco IV Lines Line sites with no e/o infection Past Medical History reviewed Allergies: Coded Allergies: Mercurial Derivatives (Verified Allergy, Severe, 03/12/14) Thorazine (Verified Allergy, Severe, 03/12/14) Penicillin (Verified Allergy, Intermediate, Rash, 03/12/14) Objective . Vital Signs Date Time Temp Pulse Resp B/P Pulse Ox O2 Delivery O2 Flow Rate FiO2 04/15/16 12:00 98.9 91 18 123/80 91 04/15/16 08:00 98.5 109 20 121/59 92 04/15/16 07:51 93 Nasal Cannula 6.00 04/15/16 04:45 Nasal Cannula 6.00 04/15/16 04:00 99.1 62 20 133/63 96 04/15/16 03:55 96 40 04/15/16 00:00 98.9 93 20 116/77 96 04/14/16 23:30 Bi-Pap 04/14/16 23:12 94 40 04/14/16 20:00 Nasal Cannula 6.00 04/14/16 20:00 98.1 57 20 154/56 92 04/14/16 20:00 111 04/14/16 19:48 94 Nasal Cannula 04/14/16 17:15 95 Nasal Cannula 6.00 04/14/16 17:12 98.0 86 20 120/58 97 04/14/16 16:00 98.2 100 23 122/67 93 04/14/16 16:00 100 04/14/16 04/14/16 04/15/16 15:00 23:00 07:00 Intake Total 810 ml 240 ml 480 ml Output Total 1825 ml 750 ml 1400 ml Balance -1015 ml -510 ml -920 ml Intake Oral 720 ml 240 ml 480 ml IV Total 90 ml Output Urine Total 1825 ml 750 ml 1400 ml # Bowel Movements 2 0 0 . Laboratory Tests Test 04/14/16 04/15/16 04:08 06:08 White Blood Count 8.3 TH/MM3 9.5 TH/MM3 Red Blood Count 6.38 MIL/MM3 6.56 MIL/MM3 Hemoglobin 14.9 GM/DL 15.3 GM/DL Hematocrit 47.4 % 48.4 % Mean Corpuscular Volume 74.3 FL 73.8 FL Mean Corpuscular Hemoglobin 23.3 PG 23.3 PG Mean Corpuscular Hemoglobin 31.4 % 31.6 % Concent Red Cell Distribution Width 20.2 % 19.8 % Platelet Count 214 TH/MM3 249 TH/MM3 Mean Platelet Volume 9.1 FL 9.2 FL Neutrophils (%) (Auto) 74.2 % 79.8 % Lymphocytes (%) (Auto) 12.3 % 8.6 % Monocytes (%) (Auto) 9.8 % 9.1 % Eosinophils (%) (Auto) 3.0 % 2.0 % Basophils (%) (Auto) 0.7 % 0.5 % Neutrophils # (Auto) 6.2 TH/MM3 7.6 TH/MM3 Lymphocytes # (Auto) 1.0 TH/MM3 0.8 TH/MM3 Monocytes # (Auto) 0.8 TH/MM3 0.9 TH/MM3 Eosinophils # (Auto) 0.2 TH/MM3 0.2 TH/MM3 Basophils # (Auto) 0.1 TH/MM3 0.0 TH/MM3 CBC Comment AUTO DIFF AUTO DIFF Differential Comment AUTO DIFF AUTO DIFF CONFIRMED CONFIRMED Ovalocytes 1+ 1+ Laboratory Tests Test 04/14/16 04/15/16 04:08 06:08 Sodium Level 141 MEQ/L 137 MEQ/L Potassium Level 3.8 MEQ/L 3.7 MEQ/L Chloride Level 97 MEQ/L 91 MEQ/L Carbon Dioxide Level 39.6 MEQ/L 40.1 MEQ/L Anion Gap 4 MEQ/L 6 MEQ/L Blood Urea Nitrogen 35 MG/DL 33 MG/DL Creatinine 1.02 MG/DL 1.06 MG/DL Estimat Glomerular Filtration 53 ML/MIN 51 ML/MIN Rate Random Glucose 157 MG/DL 161 MG/DL Uric Acid 9.5 MG/DL Calcium Level 8.8 MG/DL 8.5 MG/DL Phosphorus Level 2.1 MG/DL Magnesium Level 1.6 MG/DL Albumin 2.2 GM/DL Imaging Last Impressions Chest X-Ray 04/09/16 0600 Signed Impressions: Service Date/Time: Saturday, April 09, 2016 04:50 - CONCLUSION: Bibasilar infiltrates which are mildly increased compared to the prior study. Pulmonary venous congestion. Bello Wiggins MD Ankle X-Ray 04/09/16 0000 Signed Impressions: Service Date/Time: Saturday, April 09, 2016 15:43 - CONCLUSION: No acute fracture is identified but there is severe degenerative change and hypertrophic bone at the tibiotalar joint. There is also hypertrophic bone or fragmentation at the lateral malleolus. Given the appearance this could represent severe degenerative change versus Charcot joint. There is subcutaneous edema in the distal leg. Blu Loredo MD Chest CT 04/08/16 0000 Signed Impressions: Service Date/Time: Friday, April 08, 2016 21:14 - CONCLUSION: 1. Minimal subsegmental airspace disease at the lung bases. No significant pleural or pericardial effusion. Cardiomegaly with severe coronary calcifications. Alvaro Gresham MD Physical Exam GENERAL: Awake and alert, NAD SKIN: No generalized rashes. HEAD: Atraumatic. Normocephalic. No temporal or scalp tenderness. EYES: Pupils equal round and reactive. Extraocular motions intact. No scleral icterus. No injection or drainage. ENT: Nose without bleeding, purulent drainage. Moist mucosa. Throat without erythema, or exudate. Uvula midline. Airway patent. NECK: Trachea midline. Supple, nontender, no meningeal signs. CARDIOVASCULAR: HS audible. RESPIRATORY: Clear to auscultation. Breath sounds equal bilaterally. GASTROINTESTINAL: Abdomen soft, non-tender, nondistended. MUSCULOSKELETAL: Bilateral LE with chronic skin changes s/o dermatitis or chronic cellulitis. LLE - edema and swelling reduced when compared to line of demarcation. NEUROLOGICAL: Awake and alert. Grossly non focal Psych: cooperative IV line sites with no e/o infection. Assessment & Plan Remarks Severe Sepsis present on admission Staph bacteremia and Strep B bacteremia likely skin source Pneumonia present on admission (Community acquired vs atypical) Left LE cellulitis Acute resp failure on admission (was on Bipap now off ) Acute renal failure: sepsis, prerenal. Hypoalbuminemia DM 2 uncontrolled: compliance vs sepsis related uncontrolled Recs: Follow C/S Continue Levaquin (stop date: 04/20/2016) Continue Vanco IV (Patient PCN allergic and need coverage for both MSSA and Strep) Vancomycin target trough 15-20 for bacteremia (stop date: 04/20/2016) Weekly CBC with diff, CMP, Vanco trough to be followed by hospitalist. Monitor progress Edema control: RAH wrap and gentle diuresis. D/W RN Recommend Colonoscopy and Dental check up post discharge. Will sign off please call back if any change in clinical condition or non resolution of the cellulitis. If patient being discharged to SNF please call me for Discharge orders. No need for PICC for short course. Verónica Branham MD Apr 15, 2016 13:06
[2016-04-15 13:46] LABS: BLOOD GAS CARBOXYHEMOGLOBIN 1.6 % (0-4); BLOOD GAS HCO3 37 mmol/L (22-26); BLOOD GAS METHEMOGLOBIN 0.7 % (0-2); BLOOD GAS O2 HGB SATURATION 93 % (90-100); BLOOD GAS OXYGEN CONTENT 20.8 Vol % (12.0-20.0); BLOOD GAS PCO2 47 mmHg (38-42); BLOOD GAS PO2 70 mmHg (61-120); TEMP CORR TO 98.6
[2016-04-15 13:47] LABS: CRITICAL VALUE YES; OXYGEN DEVICE NASAL CANNULA
[2016-04-15 13:48] LABS: DRAW SITE LT RADIAL; LITER FLOW 4.5 L/M; NUMBER OF ARTERIAL PUNCTURES 1; STAT NO; ULNAR PULSE PRESENT
[2016-04-15] MEDS: VANCOMYCIN INJ 1,750 MG in SODIUM CHLORID 0.9% 500 ML INJ 500 ML IV SCH (16:08)
[2016-04-15] MEDS: WARFARIN SOD 3 MG TAB PO SCH (16:08)
[2016-04-15] MEDS ORDERED: IOHEXOL 350 MG/ML 10 ML VIAL (for RAD DIAG) IV ONE (17:53)
--- NOTE | 2016-04-15 18:19 | RADRPT ---
EXAM DATE/TIME: 04/15/2016 17:54 [facility] COMPARISON: No previous studies available for comparison. INDICATIONS : Persistant hypoxia; evaluate for embolism. IV CONTRAST: 60 cc Omnipaque 350 (iohexol) IV RADIATION DOSE: 24.87 CTDIvol (mGy) MEDICAL HISTORY : Cardiovascular disease. Deep venous thrombosis. Hypertension. SURGICAL HISTORY : None. ENCOUNTER: Initial ACUITY: 1 day PAIN SCALE: 0/10 LOCATION: Bilateral chest TECHNIQUE: Volumetric scanning of the chest was performed using a pulmonary embolism protocol MIP images were re constructed. Using automated exposure control and adjustment of the mA and/or kV according to patien t size, radiation dose was kept as low as reasonably achievable to obtain optimal diagnostic quality images. FINDINGS: No filling defects are seen to suggest embolic disease. No mild fibrotic changes in the lungs. No sig nificant pleural or pericardial effusion. No adenopathy. Mild coronary calcifications. No acute findi ngs in the upper abdomen. CONCLUSION: 1. Negative for pulmonary embolic disease. 2. 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 No significant honeycombing. Alvaro Gresham MD on April 15, 2016 at 18:12 Board Certified Radiologist. This report was verified electronically.
[2016-04-15] MEDS: PRAVASTATIN SOD 80 MG TAB PO SCH (20:48)
[2016-04-15] MEDS: INSULIN DETEMIR 100 UNITS/ML VIAL SQ SCH (20:48)
[2016-04-15] MEDS: METOPROLOL TARTRATE 50 MG TAB PO SCH (20:49)
[2016-04-15] MEDS: FENOFIBRATE 145 MG TAB PO SCH (20:49)
[2016-04-15] MEDS ORDERED: DIGOXIN 0.5 MG/2 ML VIAL IV PUSH ONE (22:00)
[2016-04-15] MEDS ORDERED: MAGNESIUM SULFATE 1 GM PREMIX 100 ML IV ONE (22:00)
[2016-04-15] MEDS ORDERED: POTASSIUM PHOSPHATE INJ 15 MMOL in SODIUM CHLOR 0.9% 250 ML INJ 250 ML IV ONE (22:15)
[2016-04-15] MEDS: ACETAMINOPHEN/HYDROcodone 325 MG/5 MG TAB PO PRN (22:21)
--- NOTE | 2016-04-15 23:56 | HHI.PR ---
Subjective Remarks patient seen today around 11 AM. Says she feels all right. Denies any chest pain or shortness of breath. Denies any nausea or vomiting. Objective Vital Signs Date Time Temp Pulse Resp B/P Pulse Ox O2 Delivery O2 Flow Rate FiO2 04/15/16 20:30 98.2 105 20 134/71 98 04/15/16 19:47 90 Nasal Cannula 4.50 04/15/16 16:00 98.1 74 20 133/78 92 04/15/16 12:00 92 Nasal Cannula 3.00 04/15/16 12:00 98.9 91 18 123/80 91 04/15/16 08:00 98.5 109 20 121/59 92 04/15/16 07:51 93 Nasal Cannula 6.00 04/15/16 04:45 Nasal Cannula 6.00 04/15/16 04:00 99.1 62 20 133/63 96 04/15/16 03:55 96 40 04/15/16 00:00 98.9 93 20 116/77 96 I/O 04/14/16 04/14/16 04/14/16 04/15/16 04/15/16 04/15/16 07:00 15:00 23:00 07:00 15:00 23:00 Intake Total 320 ml 810 ml 240 ml 480 ml 720 ml Output Total 1900 ml 1825 ml 750 ml 1400 ml 800 ml Balance -1580 ml -1015 ml -510 ml -920 ml -80 ml Intake Oral 250 ml 720 ml 240 ml 480 ml 720 ml IV Total 70 ml 90 ml Output Urine Total 1900 ml 1825 ml 750 ml 1400 ml 800 ml # Bowel Movements 2 0 0 1 Result Diagram: 04/15/16 0608 04/15/16 0608 Objective Remarks GENERAL: sitting up in bed. obese.Appears comfortable. Alert and oriented 3.no change on exam. SKIN: Warm and dry. HEAD: Normocephalic. EYES: No scleral icterus. No injection or drainage. NECK: Supple, trachea midline. No JVD. CARDIOVASCULAR: Regular rate and rhythm without murmurs, gallops, or rubs. RESPIRATORY: Breath sounds equal bilaterally. No accessory muscle use. GASTROINTESTINAL: Abdomen soft, non-tender, nondistended. MUSCULOSKELETAL: No cyanosis. patient does have chronic appearing edema left lower extremity. Faint erythema and effusion around the ankle joint. patient indicates that this is normal for her. No broken skin. No blistering. BACK: Nontender without obvious deformity. No CVA tenderness. A/P Assessment and Plan RESP: //Obstructive sleep apnea //Acute CHF exacerbation //Community acquired Pneumonia. -Continue BiPAP 12/ at night, secondary to ARNOLDO. -DuoNeb every 6 hours and when necessary -O2 via N/C 6 LPM currently -IS q2 hours awake, OOB. -Pulmonary consulted Dr. Gil -CXR -04/12 - improved bibasilar infiltrates and resolved vascular congestion -04/14 Respiratory status improving. Appreciate pulmonology assistance. -04/15. CT angiogram negative for pulmonary embolism. CV: //Probable chronic Diastolic heart failure //Chronic atrial fibrillation //Moderate pulmonary HTN, likely secondary to ARNOLDO. //Hyperlipidemia //HTN - 2-D ECHO 04/09-EF 55-60%, no RWMA, mild to moderate TR, left atrial dilation -Cardiac cath 04/24/11 - Nonocclusive CAD, moderate pulmonary HTN, moderately reduced LVEF. -Lasix 40mg BID -Plavix 75 mg po daily -04/14. Continue anticoagulation. INR therapeutic 2.3. Patient appears to be on 100 mg metoprolol twice daily at home. We'll increase metoprolol here to 50 mg twice daily. She appears to be on digoxin at home. We'll obtain level. Consult medical scientific liaison. Dr. Gamez. -04/15appreciate cardiology assistance. Digoxin and metoprolol adjusted. GI: //Morbid obesity -1800 gamaliel ADA, heart healthy diet -Packager Or Packer And Weigher consulted -Bowel regimen. Last BM 04/10 -Zofran for nausea FEN/RENAL: //Hyperkalemia (resolved) -Monitor renal function closely -04/14. Continue with diuresis. Lee catheter, monitor hourly output while diuresing. ID: //Acute on chronic left lower extremity cellulitis //Group B strep bacteremia //History of penicillin allergy -On antibiotics per ID, Dr. Branham: -Vancomycin 04/08current - Levaquin 04/09current No vegetations on TTE 04/09, follow up blood cultures cleared -Continue antibiotics as per infectious disease. No fevers. -04/14 patient states that left ankle has been inflamed for years. No history of gout. Patient states that there is no actual ankle joint and left after injury years ago. Possible involvement of gout. Uric acid ordered. Start low- dose allopurinol. If uric acid elevated, we'll start colchicine. -04/15. We'll continue on low-dose allopurinol Patient will need a continue post hospital infusion as per infectious disease. Microbiology: out of 4 blood cultures positive for group B strep 04/09follow up blood cultures no growth 04/08influenza a and B antigen negative 04/09urine cultureno growth 04/09urine Legionella antigen negative //Diabetes mellitus. -Continue Medium dose Sliding-scale insulin ac/hs with 11 units coverage. Change to ac/hs from accucheck q4 hours. -Home med is lantus 45 units qhs. -04/14. We'll increase Levemir to 10 units at bedtime. Continue to monitor. -04/15. Glucose stable. Continue to monitor glucose closely //Peripheral neuropathy. Chronic. -Lortab PRN - Gabapentin 100mg TID (home medication) PROPH: -Bilateral lower extremity SCDs. Coumadin. Protonix. Discharge Planning patient lives by herself in a trailer. The trailer has a ramp. She has a right scooter, as well as a walker. -Patient would likely benefit from rehabilitation. Giancarlo Francis MD Apr 15, 2016 23:56
[2016-04-16] VITALS: BP 136/72; PULSE 86; RESP 18; TEMP 98; O2SAT 95
[2016-04-16] MEDS ORDERED: DIGOXIN 0.5 MG/2 ML VIAL IV PUSH ONE (02:00)
[2016-04-16 04:00] VITALS: BP 108/69; PULSE 82; RESP 18; TEMP 97.7; O2SAT 95
[2016-04-16] MEDS: CHLORHEXIDINE GLUCONATE 2 % 1 PACK (2 CLOTHS) TOP SCH (04:00)
[2016-04-16] MEDS: INSULIN ASPART SUPPLEMENTAL SCALE SQ SCH ×2 (06:31→12:46)
[2016-04-16 07:02] LABS: INTERNATIONAL NORMALIZED RATIO 2.3 RATIO; PROTHROMBIN TIME - PATIENT 26.1 SEC (9.8-11.6)
[2016-04-16 07:21] LABS: BICARBONATE 40.4 MEQ/L (21.0-32.0); POTASSIUM 3.8 MEQ/L (3.5-5.1)
[2016-04-16 07:27] LABS: AUTOMATED NEUTROPHIL # 5.5 TH/MM3 (1.8-7.7); BASOPHIL % 0.6 % (0.0-2.0); EOSINOPHIL # 0.2 TH/MM3 (0-0.4); EOSINOPHIL % 2.8 % (0.0-4.0); HEMATOCRIT 46.8 % (35.0-46.0); LYMPH % 11.1 % (9.0-44.0); LYMPHOCYTE # 0.8 TH/MM3 (1.0-4.8); MEAN CORPUSCULAR HEMOGLOBIN 23.7 PG (27.0-34.0); MEAN CORPUSCULAR HGB CONC 32.5 % (32.0-36.0); MONO % 9.9 % (0.0-8.0); NEUT % 75.6 % (16.0-70.0); PLATELET COUNT 264 TH/MM3 (150-450); RED BLOOD COUNT 6.41 MIL/MM3 (4.00-5.30); RED CELL DISTRIBUTION WIDTH 19.6 % (11.6-17.2); WHITE BLOOD COUNT 7.2 TH/MM3 (4.0-11.0)
[2016-04-16 07:31] LABS: HEMO FLAGS AUTO DIFF
[2016-04-16 08:00] VITALS: BP 135/86; PULSE 90; RESP 20; TEMP 97.5; O2SAT 94
[2016-04-16] MEDS: CHLORHEXIDINE 0.12% (ORAL KIT) 15 ML CUP MT SCH (08:00)
[2016-04-16] MEDS: PANTOPRAZOLE SODIUM 40 MG VIAL IV SCH (08:56)
[2016-04-16] MEDS: TORSEMIDE 20 MG TAB PO SCH (09:00)
[2016-04-16] MEDS ORDERED: DIGOXIN 0.25 MG TAB PO SCH (09:00)
[2016-04-16] MEDS: SODIUM CHLORIDE 0.9% FLUSH 5 ML FLUSH IVF SCH (09:00)
[2016-04-16] MEDS: NYSTATIN 100,000 U/GM PWD 15 GM BTL TOPICAL SCH (09:01)
[2016-04-16] MEDS: LEVOFLOXACIN 500 MG TAB PO SCH (09:01)
[2016-04-16] MEDS: METOPROLOL TARTRATE 50 MG TAB PO SCH (09:01)
[2016-04-16] MEDS: CLOPIDOGREL 75 MG TAB PO SCH (09:01)
[2016-04-16] MEDS: GABAPENTIN 100 MG CAP PO SCH ×2 (09:01→12:51)
[2016-04-16] MEDS: ALLOPURINOL 100 MG TAB PO SCH (09:01)
[2016-04-16 09:14] LABS: OVALOCYTES 1+ (NORMAL); SCAN/DIFF AUTO DIFF CONFIRMED
[2016-04-16 10:35] VITALS: O2SAT 94
[2016-04-16] MEDS ORDERED: DIGO0.25 PO (11:43)
[2016-04-16] MEDS ORDERED: LEVA500T PO (11:43)
[2016-04-16] MEDS ORDERED: NOVOLOGSS SQ (11:43)
[2016-04-16] MEDS ORDERED: WARF-20 PO (11:43)
[2016-04-16] MEDS ORDERED: GABA100C4 PO (11:43)
[2016-04-16] MEDS ORDERED: HYDR-3533 PO (11:43)
[2016-04-16] MEDS ORDERED: ALLO100 PO (11:43)
[2016-04-16] MEDS ORDERED: LEVEMIR SQ (11:43)
[2016-04-16 12:00] VITALS: BP 131/73; PULSE 87; RESP 20; TEMP 98.1; O2SAT 94
[2016-04-16] MEDS ORDERED: VANC10IN IV (12:17)
[2016-04-16] MEDS ORDERED: EPIN1INJ21 SQ (12:17)
[2016-04-16] MEDS ORDERED: SOLU250I IV PUSH (12:17)
[2016-04-16] MEDS ORDERED: EPIN1INJ21 IV PUSH (12:17)
--- NOTE | 2016-04-16 12:22 | HHI.FF ---
Infusion Therapy Location of Infusion Therapy: [facility] Infusion Therapy Order Patient Information Appointment Date: Apr 16, 2016 Patient Weight 129.7 kg Diagnosis: Diagnosis Strep bacteremia MSSA bacteremia LLE cellulitis Coded Allergies: Mercurial Derivatives (Verified Allergy, Severe, 03/12/14) Thorazine (Verified Allergy, Severe, 03/12/14) Penicillin (Verified Allergy, Intermediate, Rash, 03/12/14) Administer Medication Vancomycin 1500 mg IV once a day for 5 more days only. Start Treatment: Apr 16, 2016 Stop Treatment: Apr 21, 2016 Additional Information Venous access: Peripheral Additional Instructions [x] Peripheral flush and dressing changes per protocol [x] Implanted port and central online banking specialist: * Implanted port: 10 ml Normal Saline followed by 5 ml Heparin 100 units/ml Heparin flush after each use and monthly to maintain. [] May leave port accessed during therapy. [] May leave peripheral site accessed for duration of therapy. [x] If patient has SOB or respiratory distress, check oxygen saturation. If less than 90% or clinical signs of respiratory distress, administer oxygen at 2 L/min. via nasal cannula and notify physician. [x] Anaphylaxis/Reaction orders: * Stop infusion. * Keep IV line open with saline flush. * Notify physician. * Monitor vital signs every 15 minutes until symptoms resolve. * Check Oxygen saturation; Oxygen at 2 L/min. via nasal cannula if less than 90% or clinical signs of respiratory distress. * Administer diphenhydramine (Benadryl) 25 mg IV STAT, (unless patient has received as pre-med). May repeat once, if necessary. * Solu-Cortef 250 mg IVP over 30-60 seconds, use 100 mg vials for each dissolution. * Epinephrine (1mg/1 ml) 0.3 mg subcutaneously or IVP now with any signs of respiratory distress. * Check with physician for new additional pre-med orders if patient is re- challenged or re-treated. [x] May remove PICC line when treatment complete, after confirming with Physician. [x] If the patient is admitted to the hospital, the ED, or transferred via [facility] , complete transfer form including medication reconciliation order sheet. Laboratory Tests Weekly Labs: CBC w/diff, Creatinine, Vancomycin Trough (trough not needed as course short and dose adjusted prior to discharge.) Additional Information Please draw weekly labs while on Vancomycin IV, Call with abnormals, change in clinical condition or problems to: Patients primary at long term. or or covering ID Physician Follow up appt: Schedule appointment with Gastroenterology Schedule appointment with Dentist Follow up with PCP Follow up with other MDs as planned. Counseling: Counseled about medication side effects Counseled about Peripheral IV and PICC line care and hand hygiene. Verónica Branham MD Apr 16, 2016 12:22
--- NOTE | 2016-04-16 12:25 | HHI.IDPN ---
Note Infectious Disease Note Discharge orders in EMR. Case Management to fax copy of orders and send with pt. No need for PICC or Vanco trough as short 5 day course left. Dose adjusted (reduced) prior to discharge. Will sign off please call back if any change in clinical condition or questions. Vital Signs Date Time Temp Pulse Resp B/P Pulse Ox O2 Delivery O2 Flow Rate FiO2 04/16/16 12:00 98.1 87 20 131/73 94 04/16/16 10:35 94 Nasal Cannula 4.00 04/16/16 10:03 94 Nasal Cannula 3.00 04/16/16 08:00 97.5 90 20 135/86 94 04/16/16 04:00 97.7 82 18 108/69 95 04/16/16 00:00 98.0 86 18 136/72 95 04/15/16 23:21 20 04/15/16 20:30 98.2 105 20 134/71 98 04/15/16 20:07 119 04/15/16 20:00 Nasal Cannula 3.00 04/15/16 19:47 90 Nasal Cannula 4.50 04/15/16 16:00 98.1 74 20 133/78 92 Laboratory Tests Test 04/15/16 04/16/16 13:32 06:30 Blood Gas Puncture Site LT RADIAL Blood Gas Patient Temperature 98.6 Blood Gas HCO3 37 mmol/L Blood Gas Base Excess 13.0 mmol/L Blood Gas Oxygen Saturation 93 % Arterial Blood pH 7.51 Arterial Blood Partial 47 mmHg Pressure CO2 Arterial Blood Partial 70 mmHg Pressure O2 Arterial Blood Oxygen Content 20.8 Vol % Arterial Blood 1.6 % Carboxyhemoglobin Arterial Blood Methemoglobin 0.7 % Blood Gas Hemoglobin 16.0 G/DL Oxygen Delivery Device NASAL CANNULA Blood Gas Liter Flow 4.5 L/M White Blood Count 7.2 TH/MM3 Red Blood Count 6.41 MIL/MM3 Hemoglobin 15.2 GM/DL Hematocrit 46.8 % Mean Corpuscular Volume 73.0 FL Mean Corpuscular Hemoglobin 23.7 PG Mean Corpuscular Hemoglobin 32.5 % Concent Red Cell Distribution Width 19.6 % Platelet Count 264 TH/MM3 Mean Platelet Volume 8.8 FL Neutrophils (%) (Auto) 75.6 % Lymphocytes (%) (Auto) 11.1 % Monocytes (%) (Auto) 9.9 % Eosinophils (%) (Auto) 2.8 % Basophils (%) (Auto) 0.6 % Neutrophils # (Auto) 5.5 TH/MM3 Lymphocytes # (Auto) 0.8 TH/MM3 Monocytes # (Auto) 0.7 TH/MM3 Eosinophils # (Auto) 0.2 TH/MM3 Basophils # (Auto) 0.0 TH/MM3 CBC Comment AUTO DIFF Differential Comment AUTO DIFF CONFIRMED Ovalocytes 1+ Prothrombin Time 26.1 SEC Prothromb Time International 2.3 RATIO Ratio Sodium Level 136 MEQ/L Potassium Level 3.8 MEQ/L Chloride Level 92 MEQ/L Carbon Dioxide Level 40.4 MEQ/L Anion Gap 4 MEQ/L Blood Urea Nitrogen 32 MG/DL Creatinine 1.08 MG/DL Estimat Glomerular Filtration 49 ML/MIN Rate Random Glucose 160 MG/DL Calcium Level 9.0 MG/DL Verónica Branham MD Apr 16, 2016 12:25
[2016-04-18] MEDS ORDERED: PHARMACY ORDERED LAB XX ONE (15:45)
--- NOTE | 2016-05-06 17:05 | HHI.DS ---
Discharge Summary Admission Date Apr 08, 2016 at 17:34 Discharge Date: Apr 16, 2016 Admitting Diagnosis SEPSIS, Hypoxia, CHF Exacerbation (1) Acute hypoxemic respiratory failure ICD Code: J96.01 Diagnosis: Principal (2) CHF exacerbation ICD Code: I50.9 Diagnosis: Principal (3) Severe sepsis ICD Code: A41.9 Diagnosis: Principal (4) Probable pneumonia Diagnosis: Principal (5) Chronic atrial fibrillation with RVR ICD Code: I48.2 Diagnosis: Principal (6) History of CHF (congestive heart failure) ICD Code: Z86.79 Diagnosis: Secondary (7) Type 2 diabetes mellitus ICD Code: E11.9 Diagnosis: Secondary (8) Hypertension ICD Code: I10 Diagnosis: Secondary (9) Chronic anticoagulation ICD Code: Z79.01 Diagnosis: Secondary Procedures Central IV access. Brief History - From Admission Patient is a 75-year-old obese white female with history of congestive heart failure, A. fib anticoagulated on Coumadin, hypertension, diabetes presented to the emergency department with shortness of breath since afternoon today. She admits that she has had a productive cough for the past 3-4 weeks. When EMS arrived the patient's oxygen saturation was around 80% on room air. Patient has a low-grade temperature of 100.4F here in the emergency department. She was placed on BiPAP which brought her oxygen saturation back up to the low 90s. She is initially hypertensive with a blood pressure of 213/98. Nitroglycerin paste was placed. Chest x-ray showed early pulmonary edema and right perihilar fullness on my review. CBC shows elevated white blood cell count of 16.4, slightly elevated hemoglobin and hematocrit. Differential shows 14% band neutrophils. INR is therapeutic at 3.1. CMP - mild hyperkalemia with a potassium of 5.4. creatinine of 1.26, BUN 30, BNP is 633. Patient is given Azactam and vancomycin IV empirically. Tmax in ED was 101.2F, heart rate 79 bpm, blood pressure 176/99. I evaluated the patient in the ED. She is slightly tachypneic, appears ill on BiPAP. I will start IV Lasix, get 2 d echo and continue broad-spectrum antibiotics with Azactam and Flagyl Imaging Last Impressions CT Angiography 04/15/16 0000 Signed Impressions: Service Date/Time: Friday, April 15, 2016 17:54 - CONCLUSION: 1. Negative for pulmonary embolic disease. 2. 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 No significant honeycombing. Alvaro Gresham MD Chest X-Ray 04/12/16 0600 Signed Impressions: Service Date/Time: Tuesday, April 12, 2016 05:31 - CONCLUSION: Clear lungs. Francisco Guillen MD Ankle X-Ray 04/09/16 0000 Signed Impressions: Service Date/Time: Saturday, April 09, 2016 15:43 - CONCLUSION: No acute fracture is identified but there is severe degenerative change and hypertrophic bone at the tibiotalar joint. There is also hypertrophic bone or fragmentation at the lateral malleolus. Given the appearance this could represent severe degenerative change versus Charcot joint. There is subcutaneous edema in the distal leg. Blu Loredo MD Chest CT 04/08/16 0000 Signed Impressions: Service Date/Time: Friday, April 08, 2016 21:14 - CONCLUSION: 1. Minimal subsegmental airspace disease at the lung bases. No significant pleural or pericardial effusion. Cardiomegaly with severe coronary calcifications. Alvaro Gresham MD PE at Discharge GENERAL: sitting up in bed. obese.Appears comfortable. Alert and oriented 3.again, with no change on exam. SKIN: Warm and dry. HEAD: Normocephalic. EYES: No scleral icterus. No injection or drainage. NECK: Supple, trachea midline. No JVD. CARDIOVASCULAR: Regular rate and rhythm without murmurs, gallops, or rubs. RESPIRATORY: Breath sounds equal bilaterally. No accessory muscle use. GASTROINTESTINAL: Abdomen soft, non-tender, nondistended. MUSCULOSKELETAL: No cyanosis. patient does have chronic appearing edema left lower extremity. Faint erythema and effusion around the ankle joint. patient indicates that this is normal for her. No broken skin. No blistering. BACK: Nontender without obvious deformity. No CVA tenderness. Pt update on day of discharge patient says she feels well. Denies any chest pain or shortness of breath. Hospital Course Patient was treated for hypoxemic respiratory failure with BiPAP, for pulmonary edema with diuresis, with improvement. Patient was found to have left lower extremity cellulitis, as well as strep bacteremia, for which infectious disease was consulted. She'll be continued on buttocks by IV as per infectious disease. For problem based summary for most recent progress note, please see below. RESP: //Obstructive sleep apnea //Acute CHF exacerbation //Community acquired Pneumonia. -Continue BiPAP 02/18 at night, secondary to ARNOLDO. -DuoNeb every 6 hours and when necessary -O2 via N/C 6 LPM currently -IS q2 hours awake, OOB. -Pulmonary consulted Dr. Gil -CXR -04/12 - improved bibasilar infiltrates and resolved vascular congestion -04/14 Respiratory status improving. Appreciate pulmonology assistance. -04/15. CT angiogram negative for pulmonary embolism. CV: //Probable chronic Diastolic heart failure //Chronic atrial fibrillation //Moderate pulmonary HTN, likely secondary to ARNOLDO. //Hyperlipidemia //HTN - 2-D ECHO 04/09-EF 55-60%, no RWMA, mild to moderate TR, left atrial dilation -Cardiac cath 04/24/11 - Nonocclusive CAD, moderate pulmonary HTN, moderately reduced LVEF. -Lasix 40mg BID -Plavix 75 mg po daily -04/14. Continue anticoagulation. INR therapeutic 2.3. Patient appears to be on 100 mg metoprolol twice daily at home. We'll increase metoprolol here to 50 mg twice daily. She appears to be on digoxin at home. We'll obtain level. Consult needle polisher. Dr. Gamez. -04/15appreciate cardiology assistance. Digoxin and metoprolol adjusted. GI: //Morbid obesity -1800 gamaliel ADA, heart healthy diet -Beamster consulted -Bowel regimen. Last BM 04/10 -Zofran for nausea FEN/RENAL: //Hyperkalemia (resolved) -Monitor renal function closely -04/14. Continue with diuresis. Lee catheter, monitor hourly output while diuresing. ID: //Acute on chronic left lower extremity cellulitis //Group B strep bacteremia //History of penicillin allergy -On antibiotics per ID, Dr. Branham: -Vancomycin 1/23current - Levaquin 04/09current No vegetations on TTE 04/09, follow up blood cultures cleared -Continue antibiotics as per infectious disease. No fevers. -04/14 patient states that left ankle has been inflamed for years. No history of gout. Patient states that there is no actual ankle joint and left after injury years ago. Possible involvement of gout. Uric acid ordered. Start low- dose allopurinol. If uric acid elevated, we'll start colchicine. -04/15. We'll continue on low-dose allopurinol Patient will need a continue post hospital infusion as per infectious disease. Microbiology: out of 4 blood cultures positive for group B strep 04/09follow up blood cultures no growth 04/08influenza a and B antigen negative 04/09urine cultureno growth 04/09urine Legionella antigen negative //Diabetes mellitus. -Continue Medium dose Sliding-scale insulin ac/hs with 11 units coverage. Change to ac/hs from accucheck q4 hours. -Home med is lantus 45 units qhs. -04/14. We'll increase Levemir to 10 units at bedtime. Continue to monitor. -04/15. Glucose stable. Continue to monitor glucose closely //Peripheral neuropathy. Chronic. -Lortab PRN - Gabapentin 100mg TID (home medication) PROPH: -Bilateral lower extremity SCDs. Coumadin. Protonix. Discharge Planning patient lives by herself in a trailer. The trailer has a ramp. She has a right scooter, as well as a walker. -Patient would likely benefit from rehabilitation. Pt Condition on Discharge: Good Discharge Disposition: Discharge to SNF Discharge Time: <= 30 minutes Discharge Instructions DIET: Follow Instructions for: Heart Healthy Diet, Diabetic Diet Fluid Restrictions: 2L Activities you can perform: Regular-No Restrictions Follow up Referrals: Cardiology - 1 Week PCP Follow-up - 1 Week SNF/NURSING HOME/ with [facility] New Orders: DIGOXIN - 1 Week New Medications: Epinephrine Inj (Epinephrine Inj) 1 Mg/Ml Inj 0.3 MG IV PUSH ONCE PRN ALLERGIC REACTION #1 VIAL Epinephrine Inj (Epinephrine Inj) 1 Mg/Ml Inj 0.3 MG SQ ONCE Give with any signs of respiratory distress. PRN ALLERGIC REACTION #1 VIAL Hydrocortisone Inj (Solu-Cortef Inj) 250 Mg Inj 250 MG IV PUSH ONCE Give over 30-60 seconds. PRN ALLERGIC REACTION #1 Ref 0 VIAL Vancomycin Inj (Vancomycin Inj) 10 Gm Inj 1500 MG IV DAILY Strep bacteremia PCN allergy Days 5 Ref 0 VIAL Allopurinol (Zyloprim) 100 Mg Tab 100 MG PO DAILY Gout Days 30 TAB Digoxin (Digoxin) 0.25 Mg Tab 0.25 MG PO DAILY Heart Days 30 TAB Gabapentin (Gabapentin) 100 Mg Cap 100 MG PO TID Pain Management Days 30 CAP Insulin Aspart Inj (Novolog Inj) 100 Unit/Ml Inj 1 INJECTION SQ ACHS SLIDING SCALE Blood Sugar Management Days 30 INJECTION Insulin Detemir Inj (Levemir Inj) 1,000 unit/ 10 ML Vial 10 UNITS SQ HS Blood Sugar Management Days 30 INJECTION Changed Medications: Warfarin (Warfarin) 4 Mg Tab 3 MG PO DAILY@1600 Blood Clot Prevention #30 Ref 0 TAB (Changed from: 4 MG) Continued Medications: Clopidogrel (Plavix) 75 Mg Tab 75 MG PO DAILY Blood Clot Prevention #30 Ref 0 TAB Fenofibrate (Fenofibrate) 160 Mg Tab 160 MG PO HS #30 Ref 0 TAB Fluvastatin ER (Lescol XL) 80 Mg Nadia 80 MG PO HS Cholesterol Management #30 Ref 0 TAB Hydrocodone-Acetaminophen (Lortab) 5-325 Mg Tab 1 TAB PO Q4-6H PRN PAIN #20 Ref 0 TAB (This prescription has been renewed) Lisinopril (Lisinopril) 20 Mg Tab 20 MG PO BID #30 Ref 0 TAB Torsemide (Torsemide) 20 Mg Tab 20 MG PO BID #60 Ref 0 TAB Discontinued Medications: Hydrochlorothiazide (Hydrochlorothiazide) 12.5 Mg Cap 12.5 MG PO DAILY PRN EDEMA #30 Ref 0 CAP Insulin Glargine Inj (Lantus Inj) 1,000 Unit/10 Ml Vial 45 UNITS SQ HS Blood Sugar Management Ref 0 VIAL Giancarlo Francis MD May 06, 2016 17:05
== END 2016-04-16 14:52 | DRG 871 ==
LOC: NEPE 14:44 → NEDA 17:34 → NEDH 21:35 → N03B 04-09 01:28 → N04A 04-14 17:07
PROVIDERS: ADMIT Internal Medicine; ATTEND Internal Medicine
PROC: 5A09557 Assistance with Respiratory Ventilation, Greater than 96 Consecutive Hours, Continuous Positive Airway Pressure (ICD-10-PCS; principal; 2016-04-08)
DX: A41.01 Sepsis due to Methicillin susceptible Staphylococcus aureus (principal); J18.9 Pneumonia, unspecified organism; J96.01 Acute respiratory failure with hypoxia; I50.33 Acute on chronic diastolic (congestive) heart failure; N17.9 Acute kidney failure, unspecified; E11.22 Type 2 diabetes mellitus with diabetic chronic kidney disease; I27.2 Other secondary pulmonary hypertension; I13.0 Hypertensive heart and chronic kidney disease with heart failure and stage 1 through stage 4 chronic kidney disease, or unspecified chronic kidney disease; Z68.41 Body mass index [BMI] 40.0-44.9, adult; E11.42 Type 2 diabetes mellitus with diabetic polyneuropathy; L03.116 Cellulitis of left lower limb; E11.65 Type 2 diabetes mellitus with hyperglycemia; E88.09 Other disorders of plasma-protein metabolism, not elsewhere classified; I48.2 Chronic atrial fibrillation; A40.1 Sepsis due to streptococcus, group B; R65.20 Severe sepsis without septic shock; N18.9 Chronic kidney disease, unspecified; E66.01 Morbid (severe) obesity due to excess calories; G47.33 Obstructive sleep apnea (adult) (pediatric); E78.5 Hyperlipidemia, unspecified; M17.0 Bilateral primary osteoarthritis of knee; E87.5 Hyperkalemia; K59.09 Other constipation; Z71.3 Dietary counseling and surveillance; Z87.891 Personal history of nicotine dependence; Z79.01 Long term (current) use of anticoagulants; Z88.0 Allergy status to penicillin; Z88.8 Allergy status to other drugs, medicaments and biological substances
CPT/HCPCS: 36600; 71010; 71250; 71275; 73600; 76937; 80048; 80053; 80069; 80162; 80202; 81001; 82550; 82552; 82805; 82948; 83605; 83735; 83880; 84100; 84484; 84550; 85007; 85025; 85027; 85610; 85730; 86140; 86403; 87040; 87086; 87147; 87186; 87205; 87449; 87641; 87804; 93005; 93306; 94002; 94003; 94150; 94640; 94664; 96374; C9113; J1160; J1815; J1940; J2270; J3370; J3475; J7040; J7050; Q9967

== ENCOUNTER 2016-10-29 19:32 | Inpatient (IN) | payer MEDICARE, BC ==
[~2016-10-29 19:32] MED LIST changes: +ALLO100 PO; -ALLO300T2 PO; -CELE200C PO; -CLOP75 PO; +EPIN1INJ21 IV PUSH; +EPIN1INJ21 SQ; +FENO160T PO; +GABA100C4 PO; +HYDR-3533 PO; -LANTUS2P SC; +LEVEMIR SQ; -LISI-357 PO; +LISI-515 PO; -LOPR100T PO; -MIRA0.5T PO; +NOVOLOGSS SQ; +PLAV75TA29 PO; -SMZ-800T PO; +SOLU250I IV PUSH; -TORS1TAB12 PO; +TORS20TA PO; +VANC10IN IV; -VICT18IN SQ; +WARF-20 PO; -WARF3TAB PO; -Z.0.OXYGEN INH
[2016-10-29 19:41] VITALS: BP 150/84; PULSE 115; RESP 18; TEMP 92.8; TEMP 98.2; O2SAT 97
[2016-10-29 19:50] VITALS: O2SAT 96
[2016-10-29] MEDS ORDERED: SODIUM CHLOR 0.9% 250 ML INJ 250 ML IV ONE (20:15)
--- NOTE | 2016-10-29 20:42 | PD ---
HPI Chief Complaint: General Weakness Time Seen by Provider: 20:08 Travel History International Travel<30 days: No Contact w/Intl Traveler<30days: No Traveled to known affect area: No History of Present Illness HPI The patient is a 76 year old female who presents to the [facility] emergency department with a history of reportedly feeling more weak throughout the day today. She reports that she has not felt well recently and was diagnosed with a urinary tract infection by her primary care physician, Dr. Malik. She reports that she's been on 2 different courses of antibiotic. She is on her second 5 day course of antibiotic, however she cannot recall the name of the medication. She denies having any known fevers. She reports a last week she did have a one day course of diarrhea that occurred approximately 2-3 times per day. She denies having any blood or mucus in her stool that she is aware of although she does report having some hemorrhoids. She reports that she has a chronic cough that is been present for the last 5 months. She reports that this is mainly dry in character. She denies having any known respiratory disease, however she is chronically on 3 L nasal cannula O2 at home. She uses a walker for mobility due to lymphedema in her legs and arthritis in her knees. The patient reports that the weakness is generalized. She denies having any one-sided weakness, difficulty with word finding ability, facial droop, or other neurologic symptoms. She denies having any chest pain or pressure. She does report having some shortness of breath at baseline which is been no worse than usual. She denies having any abdominal pain. She denies having any vomiting. [facility] Past Medical History Narrative Medical The patient's past medical history is significant for congestive heart failure, atrial fibrillation chronically anticoagulated on Coumadin, history of diabetes mellitus, hypertension, morbid obesity, lymphedema of the legs with a history of cellulitis and sepsis related to this in March 2016, history of osteoarthritis. Arthritis: Yes Atrial Fibrillation: Yes Cancer: No Cardiovascular Problems: Yes (ANGIOPLASTY) High Cholesterol: Yes Chest Pain: No Congestive Heart Failure: Yes Diabetes: Yes (TYPE II) Patient Takes Glucophage: Yes Diminished Hearing: No Deep Vein Thrombosis: Yes Endocrine: Yes Gastrointestinal Disorders: Yes Glaucoma: No Genitourinary: No Hepatitis: No Hiatal Hernia: Yes Hypertension: Yes Immune Disorder: No Implanted Vascular Access Dvce: No Musculoskeletal: Yes Neurologic: No Psychiatric: No Reproductive: No Respiratory: Yes (3L NC ALL THE TIME) Integumentary: No Thyroid Disease: No Menopausal: Yes Past Surgical History Narrative Surgical The patient's past surgical history is significant for a cholecystectomy. Abdominal Surgery: Yes (CHOLECYSTECTOMY) Cholecystectomy: Yes Thoracic Surgery: No Other Surgery: Yes Social History Alcohol Use: No Tobacco Use: No Substance Use: No Allergies-Medications (Allergen,Severity, Reaction): Coded Allergies: Mercurial Analogues (Unverified Allergy, Severe, 10/29/16) chlorpromazine (Unverified Allergy, Severe, 10/29/16) penicillin G (Unverified Allergy, Intermediate, Rash, 10/29/16) Reported Meds & Prescriptions Reported Meds & Active Scripts Active Novolog Inj (Insulin Aspart) 100 Unit/Ml Inj 1 Injection SQ ACHS SLIDING SCALE 30 Days Zyloprim (Allopurinol) 100 Mg Tab 100 Mg PO DAILY 30 Days Lortab (Hydrocodone-Acetaminophen) 5-325 Mg Tab 1 Tab PO Q4-6H PRN Reported Furosemide 20 Mg Tab 20 Mg PO DAILY Lantus Inj (Insulin Glargine) 1,000 Unit/10 Ml Vial 30 Units SQ HS Pramipexole (Pramipexole Dihydrochloride) 0.25 Mg Tab 0.25 Mg PO HS Pantoprazole (Pantoprazole Sodium) 20 Mg Tab 20 Mg PO DAILY Fenofibrate 160 Mg Tab 160 Mg PO HS Lisinopril 20 Mg Tab 20 Mg PO BID Plavix (Clopidogrel Bisulfate) 75 Mg Tab 75 Mg PO DAILY Review of Systems Except as stated in HPI: all other systems reviewed are Neg General / Constitutional: No: Fever Eyes: No: Visual changes HENT: No: Headaches Cardiovascular: Positive: Dyspnea on exertion, No: Chest Pain or Discomfort Respiratory: Positive: Cough, Shortness of Breath Gastrointestinal: No: Nausea, Vomiting, Diarrhea, Abdominal Pain Genitourinary: Positive: Frequency, No: Urgency, Dysuria Musculoskeletal: No: Pain Skin: No Rash Neurologic: No: Weakness, Focal Abnormalities, Change in Mentation, Slurred Speech, Sensory Disturbance Psychiatric: No: Depression Endocrine: No: Polydipsia Hematologic/Lymphatic: No: Easy Bruising Physical Exam Narrative General: The patient is a well-developed well-nourished female in no acute distress. Head and Neck exam: Head is normocephalic atraumatic. Eyes: EOMI, pupils are equal round and reactive to light. Nose: Midline septum with pink mucous membranes Mouth: Dentition unremarkable. Moist mucus membranes. Posterior oropharynx is not erythematous. No tonsillar hypertrophy. Uvula midline. Airway patent. Neck: No palpable lymphadenopathy. No nuchal rigidity. No thyromegaly. Cardiovascular: Irregularly irregular with a rate in the 1 teens without murmurs, gallops, or rubs. The patient has an intermittent discrepancy and her peripheral pulse on palpation of her radial artery while simultaneous auscultation of her heart. This is consistent with atrial fibrillation. Lungs: Clear to auscultation bilaterally. No wheezes, rhonchi, or rales. Abdomen: Soft, without tenderness to palpation in all 4 quadrants of the abdomen. No guarding, rebound, or rigidity. Normal bowel sounds are audible. No tenderness on palpation of McBurney's point. Negative [place] sign. Extremities: No clubbing or cyanosis. The patient has 1+ to 2+ edema. The edema is not pitting and brawny. The patient has hyperpigmentation of the extremities consistent with venous stasis changes. 2+ pulses in all 4 extremities. Back: No spinous process tenderness to palpation. Left-sided CVA tenderness. Neurologic Exam: Cranial nerves II through XII are intact. The patient is alert and oriented 4. The patient has strength that is 5 over 5 in bilateral upper extremities, 4 over 5 in bilateral lower extremities. She has intact sensation over all dermatomes. Skin Exam: No rash noted. Intact skin that is warm and dry. Data Data Last Documented VS Vital Signs Date Time Temp Pulse Resp B/P Pulse Ox O2 Delivery O2 Flow Rate FiO2 10/29/16 21:30 98.1 108 20 117/85 98 Nasal Cannula 3 Orders Electrocardiogram (10/29/16 19:56) Complete Blood Count With Diff (10/29/16 19:56) Comprehensive Metabolic Panel (10/29/16 19:56) Iv Access Insert/Monitor (10/29/16 19:56) Urinalysis - C+S If Indicated (10/29/16 19:56) Magnesium (Mg) (10/29/16 20:08) Creatine Kinase (Cpk) (10/29/16 20:08) Ckmb (Isoenzyme) Profile (10/29/16 20:08) Troponin I (10/29/16 20:08) B-Type Natriuretic Peptide (10/29/16 20:08) Prothrombin Time / Inr (Pt) (10/29/16 20:08) Act Partial Throm Time (Ptt) (10/29/16 20:08) Blood Culture (10/29/16 20:08) C-Reactive Protein (Crp) (10/29/16 20:08) Lipase (10/29/16 20:08) Cath For Specimen (10/29/16 20:08) Chest, Single Ap (10/29/16 20:08) Ecg Monitoring (10/29/16 20:08) Oximetry (10/29/16 20:08) Lactic Acid Sepsis Protocol (10/29/16 20:08) Sodium Chlor 0.9% 250 Ml Inj (Ns 250 Ml (10/29/16 20:15) Admit Order (Ed Use Only) (10/29/16 22:51) Diltiazem Cd (Cardizem Cd) (10/29/16 23:00) Labs Laboratory Tests Test 10/29/16 10/29/16 21:40 21:43 White Blood Count 7.8 TH/MM3 Red Blood Count 5.03 MIL/MM3 Hemoglobin 12.6 GM/DL Hematocrit 40.4 % Mean Corpuscular Volume 80.3 FL Mean Corpuscular Hemoglobin 25.0 PG Mean Corpuscular Hemoglobin 31.1 % Concent Red Cell Distribution Width 18.4 % Platelet Count 193 TH/MM3 Mean Platelet Volume 8.3 FL Neutrophils (%) (Auto) 78.3 % Lymphocytes (%) (Auto) 11.0 % Monocytes (%) (Auto) 6.8 % Eosinophils (%) (Auto) 3.3 % Basophils (%) (Auto) 0.6 % Neutrophils # (Auto) 6.1 TH/MM3 Lymphocytes # (Auto) 0.9 TH/MM3 Monocytes # (Auto) 0.5 TH/MM3 Eosinophils # (Auto) 0.3 TH/MM3 Basophils # (Auto) 0.0 TH/MM3 CBC Comment DIFF FINAL Differential Comment Prothrombin Time 28.0 SEC Prothromb Time International 2.4 RATIO Ratio Activated Partial 38.8 SEC Thromboplast Time Lactic Acid Level 0.9 mmol/L Magnesium Level 2.2 MG/DL Total Creatine Kinase 68 U/L Troponin I LESS THAN 0.02 NG/ML C-Reactive Protein 1.90 MG/DL B-Type Natriuretic Peptide 394 PG/ML Lipase 103 U/L Sodium Level 142 MEQ/L Potassium Level 4.6 MEQ/L Chloride Level 107 MEQ/L Carbon Dioxide Level 30.7 MEQ/L Anion Gap 4 MEQ/L Blood Urea Nitrogen 46 MG/DL Creatinine 1.55 MG/DL Estimat Glomerular Filtration 33 ML/MIN Rate Random Glucose 93 MG/DL Calcium Level 8.7 MG/DL Total Bilirubin 0.8 MG/DL Aspartate Amino Transf 32 U/L (AST/SGOT) Alanine Aminotransferase 18 U/L (ALT/SGPT) Alkaline Phosphatase 57 U/L Total Protein 7.2 GM/DL Albumin 3.2 GM/DL [facility] Medical Decision Making Medical Screen Exam Complete: Yes Emergency Medical Condition: Yes Medical Record Reviewed: Yes Interpretation(s) Last Impressions Chest X-Ray 10/29/162007 Signed Impressions: Service Date/Time: Saturday, October 29, 2016 21:39 - CONCLUSION: Mild bibasilar infiltrate and suspected small left pleural effusion. Blu Bautista MD Differential Diagnosis Urinary tract infection that is failed outpatient management, versus sepsis related to pneumonia or other underlying infectious process, versus electrolyte abnormality, versus dehydration, versus acute coronary syndrome Narrative Course During the course of the patients emergency department visit, the patients history, examination, and differential diagnosis were reviewed with the patient. The patient had IV access obtained and blood work sent for analysis. The patient was placed on a cardiac/vascular sonographer with oximetry and blood pressure monitoring. An ECG was done on arrival. The patient's ECG shows atrial fibrillation with RVR, heart rate of 114, borderline left axis deviation, no acute ST segment elevation. The patient was initially provided normal saline 250 mm IV fluid bolus times one. The patients laboratory studies were reviewed and remarkable for a 7.8, Hemoglobin 12.6, Platelets 193 with 78.3 Neutrophils, CMP Is Remarkable for a BUN of 46, Creatinine 1.55, BNP Is 394, CPK 68, Troponin I Less Than 0.02, Lipase 103, PTT 28, INR 2.4, PTT 38.8, Urinalysis Shows Small Leukocyte Esterase , 2 Rbc's, Wbc's 2 Radiology studies were reviewed and remarkable for a chest x-ray that shows mild bibasilar infiltrates and a suspected small left pleural effusion. I suspect that the patient's symptoms of generalized weakness and shortness of breath are related to his CHF exacerbation. The patients results were discussed with the patient, including the plan of care. I explained that further testing and/ or monitoring is indicated based on the patients history, examination, and/ or laboratory findings. Therefore, I recommended admission for additional evaluation. The patient expressed understanding and was agreeable with this plan. The patient was admitted to the hospital in stable condition and sent to a bed under the care of the [facility] service. Physician Communication Physician Communication The patient's case was discussed with Dr. Bah who did agree to admit the patient for further evaluation and treatment at this time. Diagnosis Primary Impression: Generalized weakness Additional Impressions: Chronic atrial fibrillation with RVR CHF exacerbation Qualified Code: I50.9 - Acute on chronic congestive heart failure, unspecified congestive heart failure type Admitting Information Admitting Physician Requests: Admit Lora Sousa MD Oct 29, 2016 20:42
[2016-10-29 21:30] VITALS: BP 117/85; PULSE 108; RESP 20; TEMP 98.1; O2SAT 98
[2016-10-29] MEDS ORDERED: PANT20TA2 PO (21:49)
[2016-10-29] MEDS ORDERED: PRAM0.25 PO (21:49)
[2016-10-29 21:50] LABS: AUTOMATED NEUTROPHIL # 6.1 TH/MM3 (1.8-7.7); BASOPHIL % 0.6 % (0.0-2.0); EOSINOPHIL # 0.3 TH/MM3 (0-0.4); EOSINOPHIL % 3.3 % (0.0-4.0); HEMATOCRIT 40.4 % (35.0-46.0); HEMO FLAGS DIFF FINAL; LYMPHOCYTE # 0.9 TH/MM3 (1.0-4.8); MEAN CELL VOLUME 80.3 FL (80.0-100.0); MEAN CORPUSCULAR HGB CONC 31.1 % (32.0-36.0); MONO % 6.8 % (0.0-8.0); NEUT % 78.3 % (16.0-70.0); PLATELET COUNT 193 TH/MM3 (150-450); RED BLOOD COUNT 5.03 MIL/MM3 (4.00-5.30); RED CELL DISTRIBUTION WIDTH 18.4 % (11.6-17.2); WHITE BLOOD COUNT 7.8 TH/MM3 (4.0-11.0)
[2016-10-29] MEDS ORDERED: LANTUS2P SQ (21:50)
[2016-10-29] MEDS ORDERED: FURO20TA PO (21:51)
[2016-10-29 22:00] LABS: APTT (PATIENT) 38.8 SEC (24.3-30.1); INTERNATIONAL NORMALIZED RATIO 2.4 RATIO
[2016-10-29 22:06] LABS: MAGNESIUM 2.2 MG/DL (1.5-2.5)
[2016-10-29 22:06] LABS: ALT (GPT) 18 U/L (10-53); ANION GAP 4 MEQ/L (5-15); AST (GOT) 32 U/L (15-37); BICARBONATE 30.7 MEQ/L (21.0-32.0); BLOOD UREA NITROGEN 46 MG/DL (7-18); CHLORIDE 107 MEQ/L (98-107); GLOMERULAR FILTRATION RATE 33 ML/MIN (>89); POTASSIUM 4.6 MEQ/L (3.5-5.1); SODIUM (NA) 142 MEQ/L (136-145)
[2016-10-29 22:09] LABS: ALKALINE PHOSPHATASE 57 U/L (45-117); TOTAL BILIRUBIN ADULT 0.8 MG/DL (0.2-1.0)
[2016-10-29 22:10] LABS: CREATINE KINASE 68 U/L (26-192)
--- NOTE | 2016-10-29 22:12 | RADRPT ---
EXAM DATE/TIME: 10/29/2016 21:39 [place] COMPARISON: CHEST SINGLE AP, April 12, 2016, 5:31. CT PULMONARY ANGIOGRAM, April 15, 2016, 17:54. INDICATIONS : Cough and lower extremit swelling for a few days. MEDICAL HISTORY : Cardiovascular disease. Deep venous thrombosis. Hypertension. SURGICAL HISTORY : None. ENCOUNTER: Initial ACUITY: 2 days PAIN SCORE: 0/10 LOCATION: Bilateral chest FINDINGS: Mild vague infiltrate seen of both bases. Potentially a small pleural effusion on the left. I don't s ee a pneumothorax. Mild cardiomegaly, stable. CONCLUSION: Mild bibasilar infiltrate and suspected small left pleural effusion. Blu Bautista MD on October 29, 2016 at 22:10 Board Certified Radiologist. This report was verified electronically.
[2016-10-29] MEDS ORDERED: NALOXONE HCL 0.4 MG/ML AMP IV PRN (23:00)
[2016-10-29] MEDS ORDERED: DILTIAZEM-CD 120 MG CAP ER PO ONE (23:00)
[2016-10-29] MEDS ORDERED: SODIUM CHLORIDE 0.9% FLUSH 10 ML FLUSH IV FLUSH PRN (23:00)
[2016-10-29 23:27] LABS: BLOOD, URINE NEG (NEG); GLUCOSE,URINE NEG (NEG); HYALINE CAST, URINE 10 /lpf (RARE); KETONE, URINE NEG (NEG); MUCUS URINE FEW /lpf (OCC); NITRITE,URINE NEG (NEG); RENAL EPITHELIAL CELLS <1 /hpf; SQUAMOUS EPITHELIAL CELL URINE 2 /hpf (0-5); URINE COLOR YELLOW (YELLW/STRAW)
[2016-10-29 23:28] LABS: COMMENT (UR) CATH-CULT NOT IND; CULTURE IF INDICATED CATH CULTURE NOT IND
[2016-10-30] VITALS (20 sets, daily range): BP systolic 100–125; BP diastolic 58–83; PULSE 87–118; RESP 18–22; TEMP 97.8–98.5; O2SAT 93–97
--- NOTE | 2016-10-30 00:20 | EKG ---
Date Performed: 10/29/2016 Time Performed: 20:04:27 PTAGE: 76 years EKG: ATRIAL FIBRILLATION WITH RAPID VENTRICULAR RESPONSE BORDERLINE LEFT AXIS DEVIATION LOW QRS VOLTAGE IN EXTREMITY LEADS PATTERN CONSISTENT WITH PULMONARY DISEASE ABNORMAL ECG PREVIOUS TRACING : 10/29/2016 20.03 Compared to the previous tracing, now noted to be in atrial fibrillation DOCTOR: Jamil Batista Interpretating Date/Time 10/30/2016 00:18:46
[2016-10-30 08:00] LABS: BICARBONATE 26.1 MEQ/L (21.0-32.0)
[2016-10-30 08:04] LABS: AUTOMATED NEUTROPHIL # 4.6 TH/MM3 (1.8-7.7); BASOPHIL # 0.1 TH/MM3 (0-0.2); BASOPHIL % 1.2 % (0.0-2.0); EOSINOPHIL # 0.2 TH/MM3 (0-0.4); EOSINOPHIL % 3.5 % (0.0-4.0); HEMATOCRIT 37.9 % (35.0-46.0); HEMO FLAGS DIFF FINAL; LYMPH % 11.6 % (9.0-44.0); LYMPHOCYTE # 0.7 TH/MM3 (1.0-4.8); MEAN CORPUSCULAR HEMOGLOBIN 25.4 PG (27.0-34.0); MEAN CORPUSCULAR HGB CONC 31.8 % (32.0-36.0); MONO % 9.5 % (0.0-8.0); NEUT % 74.2 % (16.0-70.0); PLATELET COUNT 157 TH/MM3 (150-450); RED BLOOD COUNT 4.74 MIL/MM3 (4.00-5.30); RED CELL DISTRIBUTION WIDTH 18.6 % (11.6-17.2); WHITE BLOOD COUNT 6.1 TH/MM3 (4.0-11.0)
[2016-10-30] MEDS ORDERED: DEXTROSE 50% IN WATER 50 ML VIAL(D50) IV PRN (08:45)
[2016-10-30] MEDS ORDERED: GLUCAGON 1 MG/ML VIAL OTHER PRN (08:45)
[2016-10-30] MEDS ORDERED: LISINOPRIL 20 MG TAB PO SCH (09:00)
[2016-10-30] MEDS: SODIUM CHLORIDE 0.9% FLUSH 10 ML FLUSH IV FLUSH SCH ×2 (09:07→21:00)
[2016-10-30] MEDS: ALLOPURINOL 100 MG TAB PO SCH (09:12)
[2016-10-30] MEDS: CLOPIDOGREL 75 MG TAB PO SCH (09:12)
[2016-10-30] MEDS: PANTOPRAZOLE SOD 20 MG DELAYED RELEASE TAB PO SCH (09:17)
--- NOTE | 2016-10-30 10:17 | HHI.HP ---
[facility] Unknown Admission Diagnosis Generalized weakness, afib with rvr, shortness of breath Diagnoses: Chief Complaint: Generalized weakness Travel History International Travel<30 Days: No Contact w/Intl Traveler <30 Da: No Traveled to Known Affected Are: No History of Present Illness This is a 76-year-old female past medical history of CHF, atrial fibrillation, on chronic Coumadin due to age of fibrillation/history of DVT, type 2 diabetes insulin-dependent, hospitalization in March 2016 secondary to pneumonia who presented with generalized weakness/fatigue. Patient stated that about 2-3 days ago she wasn't feeling well and felt very fatigued. She stated that she usually has a walker or wheelchair at home and gets up with her walker onto the wheelchair but has not been able to the past 2-3 days. She denies any shortness of breathing, but stated that when she saw 1 week ago she was treated for UTI and they found her to be hypoxic so put her oxygen. When I asked her why they put on oxygen she stated that because her oxygen saturation was low but she was asymptomatic. Was treated with 2 different types of antibiotics for UTI. She denies any urinary symptoms at the moment. Patient denies any fevers or chills. Denies any shortness of breathing, chest pain, less tenderness or dizziness. Denies any focal neurological deficits. All other review symptoms reviewed and all negative. Past Family Social History Past Medical History Congestive heart failure Atrial fibrillation on Coumadin History of DVT Type 2 diabetes Hypertension Morbid obesity Hospital admission in March 2016 secondary to pneumonia/sepsis Gout Past Surgical History Cholecystectomy Reported Medications Novolog Inj (Insulin Aspart) 100 Unit/Ml Inj 1 Injection SQ ACHS SLIDING SCALE 30 Days Zyloprim (Allopurinol) 100 Mg Tab 100 Mg PO DAILY 30 Days Lortab (Hydrocodone-Acetaminophen) 5-325 Mg Tab 1 Tab PO Q4-6H PRN Reported Furosemide 20 Mg Tab 20 Mg PO DAILY Lantus Inj (Insulin Glargine) 1,000 Unit/10 Ml Vial 30 Units SQ HS Pramipexole (Pramipexole Dihydrochloride) 0.25 Mg Tab 0.25 Mg PO HS Pantoprazole (Pantoprazole Sodium) 20 Mg Tab 20 Mg PO DAILY Fenofibrate 160 Mg Tab 160 Mg PO HS Lisinopril 20 Mg Tab 20 Mg PO BID Plavix (Clopidogrel Bisulfate) 75 Mg Tab 75 Mg PO DAILY Allergies: Coded Allergies: Mercurial Analogues (Unverified Allergy, Severe, 10/29/16) chlorpromazine (Unverified Allergy, Severe, 10/29/16) penicillin G (Unverified Allergy, Intermediate, Rash, 10/29/16) Active Ordered Medications Current Medications Sodium Chloride (NS 250 ml Inj) 250 ml @ 250 mls/hr BOLUS ONCE IV Last administered on 10/29/16 21:38; Start 10/29/16 at 20:15; Stop 10/29/16 at 21:14 ; Status DC Diltiazem HCl (Cardizem Cd) 120 mg ONCE ONCE PO Last administered on 23:35; Start 10/29/16 at 23:00; Stop 10/29/16 at 23:01; Status DC Sodium Chloride (NS Flush) 2 ml UNSCH PRN IV FLUSH FLUSH AFTER USING IV ACCESS ; Start 10/29/16 at 23:00 Sodium Chloride (NS Flush) 2 ml BID IV FLUSH Last administered on 10/30/16 09: 07; Start 10/30/16 at 09:00 Naloxone HCl (Narcan Inj) 0.4 mg UNSCH PRN IV SEE LABEL COMMENTS; Start at 23:00 Allopurinol (Zyloprim) 100 mg DAILY PO Last administered on 10/30/16 09:12; Start 10/30/16 at 09:00 Clopidogrel Bisulfate (Plavix) 75 mg DAILY PO Last administered on 10/30/16 09 :12; Start 10/30/16 at 09:00 Acetaminophen/ Hydrocodone Bitart ([place] 5-325 Mg) 1 tab Q4H PRN PO PAIN; Start 10/30/16 at 08:45 Lisinopril (Prinivil) 20 mg BID PO Last administered on 10/30/16 09:12; Start 10/30/16 at 09:00; Status Hold Pantoprazole Sodium (Protonix) 20 mg DAILY PO Last administered on 10/30/16 09 :17; Start 10/30/16 at 09:00 Pramipexole Dihydrochloride (Mirapex) 0.25 mg HS PO ; Start 10/30/16 at 21:00 Fenofibrate (Tricor) 145 mg HS PO ; Start 10/30/16 at 21:00 Dextrose (D50w (Vial) Inj) 50 ml UNSCH PRN IV HYPOGLYCEMIA-SEE COMMENTS; Start 10/30/16 at 08:45 Glucagon (Glucagon Inj) 1 mg UNSCH PRN OTHER HYPOGLYCEMIA-SEE COMMENTS; Start 10/30/16 at 08:45 Insulin Aspart (NovoLOG SUPPLEMENTAL SCALE) 1 ACHS SLIDING SCALE SQ ; Start at 11:00 Family History Review family history of patient in no significant family history. Social History Patient lives by herself. denied tobacco or alcohol use. Physical Exam Vital Signs Vital Signs Date Time Temp Pulse Resp B/P Pulse Ox O2 Delivery O2 Flow Rate FiO2 10/30/16 07:17 97 Nasal Cannula 3 10/30/16 07:15 97.8 10/30/16 07:05 98 20 115/66 95 Nasal Cannula 3 10/30/16 03:30 115 22 117/58 97 Nasal Cannula 3 10/30/16 00:30 110 22 112/63 97 Nasal Cannula 3 10/29/16 23:07 Nasal Cannula 4.00 10/29/16 21:30 98.1 108 20 117/85 98 Nasal Cannula 3 10/29/16 19:53 Room Air 10/29/16 19:50 96 Nasal Cannula 3 10/29/16 19:41 98.2 115 18 150/84 97 Physical Exam GENERAL: This is a well-nourished, well-developed patient, in no apparent distress. SKIN: No rashes, ecchymoses or lesions. Cool and dry. HEAD: Atraumatic. Normocephalic. No temporal or scalp tenderness. EYES: Pupils equal round and reactive. Extraocular motions intact. No scleral icterus. No injection or drainage. ENT: Nose without bleeding, purulent drainage or septal hematoma. Throat without erythema, tonsillar hypertrophy or exudate. Uvula midline. Airway patent. NECK: Trachea midline. No JVD or lymphadenopathy. Supple, nontender, no meningeal signs. CARDIOVASCULAR: Irregular rate and irregular rhythm without murmurs, gallops, or rubs. RESPIRATORY: Clear to auscultation. Breath sounds equal bilaterally. No wheezes , rales, or rhonchi. GASTROINTESTINAL: Abdomen soft, non-tender, nondistended. No hepato-splenomegaly , or palpable masses. No guarding. MUSCULOSKELETAL: Extremities without clubbing, cyanosis, or edema. No joint tenderness, effusion, or edema noted. No calf tenderness. Negative [place] sign bilaterally. NEUROLOGICAL: Awake and alert. Cranial nerves II through XII intact. Motor and sensory grossly within normal limits. Five out of 5 muscle strength in all muscle groups. Normal speech. Laboratory Laboratory Tests Test 10/29/16 10/29/16 10/29/16 10/30/16 21:40 21:43 23:00 06:52 White Blood Count 7.8 6.1 Red Blood Count 5.03 4.74 Hemoglobin 12.6 12.0 Hematocrit 40.4 37.9 Mean Corpuscular Volume 80.3 80.0 Mean Corpuscular Hemoglobin 25.0 25.4 Mean Corpuscular Hemoglobin 31.1 31.8 Concent Red Cell Distribution Width 18.4 18.6 Platelet Count 193 157 Mean Platelet Volume 8.3 9.1 Neutrophils (%) (Auto) 78.3 74.2 Lymphocytes (%) (Auto) 11.0 11.6 Monocytes (%) (Auto) 6.8 9.5 Eosinophils (%) (Auto) 3.3 3.5 Basophils (%) (Auto) 0.6 1.2 Neutrophils # (Auto) 6.1 4.6 Lymphocytes # (Auto) 0.9 0.7 Monocytes # (Auto) 0.5 0.6 Eosinophils # (Auto) 0.3 0.2 Basophils # (Auto) 0.0 0.1 CBC Comment DIFF FINAL DIFF FINAL Differential Comment Prothrombin Time 28.0 Prothromb Time International 2.4 Ratio Activated Partial 38.8 Thromboplast Time Lactic Acid Level 0.9 Magnesium Level 2.2 Total Creatine Kinase 68 Troponin I LESS THAN 0.02 C-Reactive Protein 1.90 B-Type Natriuretic Peptide 394 Lipase 103 Sodium Level 142 143 Potassium Level 4.6 5.0 Chloride Level 107 110 Carbon Dioxide Level 30.7 26.1 Anion Gap 4 7 Blood Urea Nitrogen 46 41 Creatinine 1.55 1.32 Estimat Glomerular Filtration 33 39 Rate Random Glucose 93 63 Calcium Level 8.7 8.3 Total Bilirubin 0.8 Aspartate Amino Transf 32 (AST/SGOT) Alanine Aminotransferase 18 (ALT/SGPT) Alkaline Phosphatase 57 Total Protein 7.2 Albumin 3.2 Urine Color YELLOW Urine Turbidity HAZY Urine pH 5.0 Urine Specific [place] 1.021 Urine Protein TRACE Urine Glucose (UA) NEG Urine Ketones NEG Urine Occult Blood NEG Urine Nitrite NEG Urine Bilirubin NEG Urine Urobilinogen LESS THAN 2.0 Urine Leukocyte Esterase SMALL Urine RBC 2 Urine WBC 2 Urine Squamous Epithelial 2 Cells Urine Renal Epithelial Cells <1 Urine Hyaline Casts 10 Urine Mucus FEW Microscopic Urinalysis Comment CATH-CULT NOT IND Hematology Comments Date/Time Procedure Status Source Growth 10/29/16 21:43 Aerobic Blood Culture Received Blood Peripheral Pending 10/29/16 21:43 Anaerobic Blood Culture Received Blood Peripheral Pending Result Diagram: 10/30/16 0652 10/30/1652 Imaging Last Impressions Chest X-Ray 10/29/162007 Signed Impressions: Service Date/Time: Saturday, October 29, 2016 21:39 - CONCLUSION: Mild bibasilar infiltrate and suspected small left pleural effusion. Blu Bautista MD Assessment and Plan Assessment and Plan 76-year-old female who presented with general weakness/fatigue General weakness/fatigue -Labs reviewed mildly elevated BNP. EKG shows atrial fibrillation with RVR rate range from 110 to 130. Chest x-ray shows mild bilateral pleural effusion. -Fatigue most likely secondary to age of fibrillation with RVR and mild CHF. -Will treat as below. -Continue to monitor clinically. Will also consult physical therapist. Atrial of fibrillation with RVR -Patient was given Cardizem 120 mg at night. Better control blood rate still goes up to the 110s at time. Will increase to Cardizem 180 CD and put patient Cardizem drip. -Continue with home Coumadin. Mild CHF exacerbation -BMP mildly elevated and bipolar fusion, chest x-ray, and patient is hypoxic. -Will treat with Lasix. Wean oxygen as tolerated. -Strict ins and outs avoid nephrotoxins. Chronic kidney disease -Patient seems to fluctuate. Her creatinine/GFR was reviewed. She is relatively stable. -Continue to monitor currently. -Strict ins and outs. Hypertension -Due to mildly elevated potassium will hold off of RAH inhibitor. Otherwise resume the medication. Type 2 diabetes insulin-dependent -Start patient on Levemir and insulin sliding scale. -Start patient on hypoglycemic protocol. DVT prophylaxis -On Coumadin. Discussed Condition With patient Physician Certification 2 Midnight Certification Type: Admission for Inpatient Services Order for Inpatient Services The services are ordered in accordance with Medicare regulations or non- Medicare payer requirements, as applicable. In the case of services not specified as inpatient-only, they are appropriately provided as inpatient services in accordance with the 2-midnight benchmark. Estimated LOS (days): 3 3 days is the estimated time the patient will need to remain in the hospital, assuming treatment plan goals are met and no additional complications. Post-Hospital Plan: Not yet determined Lydia Thurman MD Oct 30, 2016 10:17
[2016-10-30] MEDS: INSULIN ASPART SUPPLEMENTAL SCALE SQ SCH ×3 (11:00→21:00)
[2016-10-30] MEDS: FUROSEMIDE 20 MG/2 ML VIAL IV PUSH SCH (14:53)
[2016-10-30] MEDS ORDERED: DILTIAZEM INJ 125 MG in SODIUM CHLORIDE 0.9% INJ 100 ML IV SCH (16:00)
[2016-10-30] MEDS: FENOFIBRATE 145 MG TAB PO SCH (21:00)
[2016-10-30] MEDS: ACETAMINOPHEN/HYDROcodone 325 MG/5 MG TAB PO PRN (21:02)
[2016-10-30] MEDS ORDERED: DILTIAZEM-CD 180 MG CAP ER PO SCH (22:00)
[2016-10-30] MEDS: PRAMIPEXOLE DIHYDROCHLORIDE 0.25 MG TAB PO SCH (22:07)
[2016-10-31] VITALS (26 sets, daily range): BP systolic 100–116; BP diastolic 48–64; PULSE 86–115; RESP 18–24; TEMP 97.6–98.5; O2SAT 88–98
[2016-10-31] MEDS: INSULIN ASPART SUPPLEMENTAL SCALE SQ SCH ×4 (06:38→21:04)
[2016-10-31 07:02] LABS: HEMATOCRIT 36.5 % (35.0-46.0); MEAN CELL VOLUME 80.6 FL (80.0-100.0); PLATELET COUNT 175 TH/MM3 (150-450); RED BLOOD COUNT 4.52 MIL/MM3 (4.00-5.30); RED CELL DISTRIBUTION WIDTH 18.7 % (11.6-17.2); REVIEW FLAG FINAL; WHITE BLOOD COUNT 6.6 TH/MM3 (4.0-11.0)
[2016-10-31 07:08] LABS: BICARBONATE 33.8 MEQ/L (21.0-32.0); POTASSIUM 4.8 MEQ/L (3.5-5.1)
[2016-10-31] MEDS: CLOPIDOGREL 75 MG TAB PO SCH (09:36)
[2016-10-31] MEDS: FUROSEMIDE 20 MG/2 ML VIAL IV PUSH SCH (09:36)
[2016-10-31] MEDS: ALLOPURINOL 100 MG TAB PO SCH (09:36)
[2016-10-31] MEDS: PANTOPRAZOLE SOD 20 MG DELAYED RELEASE TAB PO SCH (09:36)
[2016-10-31] MEDS: SODIUM CHLORIDE 0.9% FLUSH 10 ML FLUSH IV FLUSH SCH ×2 (09:37→21:00)
[2016-10-31] MEDS: ACETAMINOPHEN/HYDROcodone 325 MG/5 MG TAB PO PRN ×2 (09:38→21:01)
--- NOTE | 2016-10-31 10:40 | HHI.PR ---
Subjective Remarks Follow-up for general fatigue, age of fibrillation with RVR, CHF exacerbation Patient stated that she feels a little better. She stated that she is sitting up but with assistance. She stated that she was not able to do that before. Heart rates been in the lower 100s. Blood sugar ranging from low 100-175. Denies any chest pain, shortness of breathing, or palpitations. Dealt with patient's nurse and her brother at the bedside. Objective Vitals Vital Signs Date Time Temp Pulse Resp B/P Pulse Ox O2 Delivery O2 Flow Rate FiO2 10/31/16 08:00 98.5 110 22 105/56 90 10/31/16 06:00 99 10/31/16 05:00 104 10/31/16 04:54 98 Nasal Cannula 3.00 10/31/16 04:00 115 10/31/16 03:00 95 Nasal Cannula 4.00 10/31/16 03:00 98.1 95 18 104/52 88 10/31/16 03:00 105 10/31/16 02:00 96 10/31/16 01:00 104 10/31/16 00:00 98.1 112 18 105/48 93 10/31/16 00:00 93 Nasal Cannula 3.00 10/31/16 00:00 108 10/30/16 23:00 106 10/30/16 22:00 118 10/30/16 21:00 112 10/30/16 20:00 116 10/30/16 19:50 95 Nasal Cannula 3.00 10/30/16 19:50 98.5 109 18 115/83 95 10/30/16 19:50 95 Nasal Cannula 3.00 10/30/16 19:00 109 10/30/16 18:04 113 10/30/16 17:15 105 10/30/16 16:14 104 10/30/16 15:54 113 10/30/16 15:54 113 10/30/16 15:54 97.8 113 20 123/75 93 10/30/16 15:52 117 10/30/16 15:30 113 10/30/16 15:00 95 Nasal Cannula 3.00 10/30/16 15:00 95 Nasal Cannula 3.00 10/30/16 14:45 100 20 110/58 94 Nasal Cannula 3 10/30/16 13:45 108 20 100/60 94 Nasal Cannula 3 10/30/16 11:38 87 22 125/67 94 Nasal Cannula 3 I/O 10/30/16 10/30/16 10/30/16 10/31/16 10/31/16 10/31/16 07:00 15:00 23:00 07:00 15:00 23:00 Intake Total 120 ml 720 ml Output Total 600 ml 1600 ml 2000 ml Balance -600 ml -1480 ml -1280 ml Intake Oral 120 ml 720 ml IV Total 0 ml Output Urine Total 600 ml 1600 ml 2000 ml # Bowel Movements 0 Result Diagram: 10/31/16 0633 10/31/16 0633 Imaging Last Impressions Chest X-Ray 10/29/162007 Signed Impressions: Service Date/Time: Saturday, October 29, 2016 21:39 - CONCLUSION: Mild bibasilar infiltrate and suspected small left pleural effusion. Blu Bautista MD Objective Remarks GENERAL: In no acute distress CARDIOVASCULAR: Regular rate and rhythm without murmurs, gallops, or rubs. RESPIRATORY: Breath sounds equal bilaterally with bilateral basilar crackles no wheezing or rhonchi noted. No accessory muscle use. GASTROINTESTINAL: Abdomen soft, non-tender, nondistended. MUSCULOSKELETAL: No cyanosis, or edema. BACK: Nontender without obvious deformity. No CVA tenderness. Medications and IVs Current Medications Sodium Chloride (NS 250 ml Inj) 250 ml @ 250 mls/hr BOLUS ONCE IV Last administered on 10/29/16 21:38; Start 10/29/16 at 20:15; Stop 10/29/16 at 21:14 ; Status DC Diltiazem HCl (Cardizem Cd) 120 mg ONCE ONCE PO Last administered on 23:35; Start 10/29/16 at 23:00; Stop 10/29/16 at 23:01; Status DC Sodium Chloride (NS Flush) 2 ml UNSCH PRN IV FLUSH FLUSH AFTER USING IV ACCESS ; Start 10/29/16 at 23:00 Sodium Chloride (NS Flush) 2 ml BID IV FLUSH Last administered on 10/31/16 09: 37; Start 10/30/16 at 09:00 Naloxone HCl (Narcan Inj) 0.4 mg UNSCH PRN IV SEE LABEL COMMENTS; Start at 23:00 Allopurinol (Zyloprim) 100 mg DAILY PO Last administered on 10/31/16 09:36; Start 10/30/16 at 09:00 Clopidogrel Bisulfate (Plavix) 75 mg DAILY PO Last administered on 10/31/16 09 :36; Start 10/30/16 at 09:00 Acetaminophen/ Hydrocodone Bitart ([place] 5-325 Mg) 1 tab Q4H PRN PO PAIN Last administered on 10/31/16 09:38; Start 10/30/16 at 08:45 Lisinopril (Prinivil) 20 mg BID PO Last administered on 10/30/16 09:12; Start 10/30/16 at 09:00; Status Hold Pantoprazole Sodium (Protonix) 20 mg DAILY PO Last administered on 10/31/16 09 :36; Start 10/30/16 at 09:00 Pramipexole Dihydrochloride (Mirapex) 0.25 mg HS PO Last administered on 22:07; Start 10/30/16 at 21:00 Fenofibrate (Tricor) 145 mg HS PO Last administered on 10/30/16 21:00; Start 10/30/16 at 21:00 Dextrose (D50w (Vial) Inj) 50 ml UNSCH PRN IV HYPOGLYCEMIA-SEE COMMENTS; Start 10/30/16 at 08:45 Glucagon (Glucagon Inj) 1 mg UNSCH PRN OTHER HYPOGLYCEMIA-SEE COMMENTS; Start 10/30/16 at 08:45 Insulin Aspart (NovoLOG SUPPLEMENTAL SCALE) 1 ACHS SLIDING SCALE SQ Last administered on 10/30/16 21:00; Start 10/30/16 at 11:00 Diltiazem HCl (Cardizem Cd) 180 mg DAILY@22 PO Last administered on 10/30/16 21:00; Start 10/30/16 at 22:00 Furosemide 20 mg 20 mg DAILY IV PUSH Last administered on 10/31/16 09:36; Start 10/30/16 at 14:30 Diltiazem HCl/ Sodium Chloride (Cardizem Inj/NS Inj) 125 ml @ 0 mls/hr TITRATE IV ; Start 10/30/16 at 16:00 A/P Assessment and Plan 76-year-old female who presented with general weakness/fatigue General weakness/fatigue -Labs reviewed mildly elevated BNP. EKG shows atrial fibrillation with RVR rate range from 110 to 130. Chest x-ray shows mild bilateral pleural effusion. -Fatigue most likely secondary to age of fibrillation with RVR and mild CHF. -Patient is improving with treatment as below. -Physical therapist following. Atrial of fibrillation with RVR -Heart rate in the low 100s. Increase Cardizem. Will get a dose of short acting Cardizem right now. -Continue to monitor on telemetry. Will need heart rate control in order to improve CHF exacerbation. Mild CHF exacerbation -BNP mildly elevated and bilateral pleural effusion found on, chest x-ray, and patient is hypoxic. -Good urine output with Lasix. Continue Lasix. -Strict ins and outs avoid nephrotoxins. Chronic kidney disease -Patient seems to fluctuate. Her creatinine/GFR was reviewed. She is relatively stable. -Continue to monitor currently. -Strict ins and outs. Hypoxia -Patient is in no respiratory distress. Mostly secondary to CHF. -She was found to be hypoxic 1 week ago by her PCP. No treatment was given. -Will try to wean off oxygen. Obstructive sleep apnea -Patient stated that she is suppose to be on CPAP but has not received the equipment from Dr. Mckeon. -Patient told to talk with her primary care physician in regards to getting her equipment. Hypertension -Due to mildly elevated potassium RAH inhibitor held. Continue with home medication. Type 2 diabetes insulin-dependent -Continue with insulin sliding scale. DVT prophylaxis -On Coumadin. Lydia Thurman MD Oct 31, 2016 10:40
[2016-10-31] MEDS ORDERED: DILTIAZEM HCL 30 MG TAB PO ONE (11:30)
[2016-10-31 12:52] LABS: INTERNATIONAL NORMALIZED RATIO 2.3 RATIO; PROTHROMBIN TIME - PATIENT 26.3 SEC (9.8-11.6)
[2016-10-31] MEDS: FENOFIBRATE 145 MG TAB PO SCH (21:01)
[2016-10-31] MEDS: DILTIAZEM-CD 240 MG CAP ER PO SCH (21:01)
[2016-10-31] MEDS: PRAMIPEXOLE DIHYDROCHLORIDE 0.25 MG TAB PO SCH (21:01)
[2016-11-01] VITALS (18 sets, daily range): BP systolic 101–127; BP diastolic 54–73; PULSE 71–97; RESP 17–22; TEMP 97.6–98.4; O2SAT 91–94
[2016-11-01] MEDS: INSULIN ASPART SUPPLEMENTAL SCALE SQ SCH ×4 (06:12→21:00)
[2016-11-01 08:02] LABS: HEMATOCRIT 35.8 % (35.0-46.0); MEAN CELL VOLUME 81.4 FL (80.0-100.0); MEAN CORPUSCULAR HEMOGLOBIN 25.3 PG (27.0-34.0); MEAN CORPUSCULAR HGB CONC 31.1 % (32.0-36.0); PLATELET COUNT 179 TH/MM3 (150-450); RED BLOOD COUNT 4.39 MIL/MM3 (4.00-5.30); RED CELL DISTRIBUTION WIDTH 18.9 % (11.6-17.2); REVIEW FLAG FINAL
[2016-11-01 08:18] LABS: BICARBONATE 35.9 MEQ/L (21.0-32.0); POTASSIUM 4.4 MEQ/L (3.5-5.1)
[2016-11-01] MEDS: CLOPIDOGREL 75 MG TAB PO SCH (09:19)
[2016-11-01] MEDS: PANTOPRAZOLE SOD 20 MG DELAYED RELEASE TAB PO SCH (09:19)
[2016-11-01] MEDS: ALLOPURINOL 100 MG TAB PO SCH (09:19)
[2016-11-01] MEDS: SODIUM CHLORIDE 0.9% FLUSH 10 ML FLUSH IV FLUSH SCH ×2 (09:20→22:22)
[2016-11-01] MEDS: FUROSEMIDE 20 MG/2 ML VIAL IV PUSH SCH (09:20)
--- NOTE | 2016-11-01 09:54 | HHI.PR ---
Subjective Remarks Follow-up for CHF exacerbation secondary to age of fibrillation with RVR Weight is controlled. Patient found sitting on the edge of the bed. Oxygen was checked on room and was 91%. Patient stated that she is feeling better. She stated that her legs are weak though. Breathing is improving. She has no other complaints. Objective Vitals Vital Signs Date Time Temp Pulse Resp B/P Pulse Ox O2 Delivery O2 Flow Rate FiO2 11/01/16 06:00 86 11/01/16 05:00 71 11/01/16 04:00 82 11/01/16 03:15 97.8 84 20 101/54 92 11/01/16 03:15 92 Nasal Cannula 4.50 11/01/16 03:00 81 11/01/16 02:00 73 11/01/16 01:00 89 11/01/16 00:00 92 10/31/16 23:00 92 Nasal Cannula 4.50 10/31/16 23:00 94 10/31/16 23:00 98.0 97 18 101/64 88 10/31/16 22:00 102 10/31/16 21:00 98 10/31/16 20:00 98.0 90 18 116/64 95 10/31/16 20:00 95 Nasal Cannula 2.00 10/31/16 20:00 102 10/31/16 19:23 95 Nasal Cannula 2.00 10/31/16 19:00 99 10/31/16 18:00 98 10/31/16 17:00 92 10/31/16 16:00 92 10/31/16 15:00 97.6 90 22 108/63 94 10/31/16 15:00 94 10/31/16 15:00 94 Nasal Cannula 2.00 10/31/16 14:00 86 10/31/16 13:00 92 10/31/16 12:00 102 10/31/16 11:40 20 10/31/16 11:00 100 10/31/16 11:00 107 24 100/63 93 10/31/16 11:00 93 Nasal Cannula 2.00 10/31/16 10:00 106 I/O 10/31/16 10/31/16 10/31/16 11/01/16 11/01/16 11/01/16 06:59 14:59 22:59 06:59 14:59 22:59 Intake Total 720 ml 690 ml 480 ml Output Total 2000 ml 1975 ml 550 ml Balance -1280 ml -1285 ml -70 ml Intake Oral 720 ml 690 ml 480 ml IV Total 0 ml 0 ml Output Urine Total 2000 ml 1975 ml 550 ml # Bowel Movements 0 2 Result Diagram: 11/01/1648 11/01/1648 Objective Remarks GENERAL: In no acute distress CARDIOVASCULAR: Regular rate and rhythm without murmurs, gallops, or rubs. RESPIRATORY: Breath sounds equal bilaterally with bilateral basilar crackles no wheezing or rhonchi noted. No accessory muscle use. GASTROINTESTINAL: Abdomen soft, non-tender, nondistended. MUSCULOSKELETAL: No cyanosis, or edema. BACK: Nontender without obvious deformity. No CVA tenderness. Medications and IVs Current Medications Sodium Chloride (NS 250 ml Inj) 250 ml @ 250 mls/hr BOLUS ONCE IV Last administered on 10/29/16 21:38; Start 10/29/16 at 20:15; Stop 10/29/16 at 21:14 ; Status DC Diltiazem HCl (Cardizem Cd) 120 mg ONCE ONCE PO Last administered on 23:35; Start 10/29/16 at 23:00; Stop 10/29/16 at 23:01; Status DC Sodium Chloride (NS Flush) 2 ml UNSCH PRN IV FLUSH FLUSH AFTER USING IV ACCESS ; Start 10/29/16 at 23:00 Sodium Chloride (NS Flush) 2 ml BID IV FLUSH Last administered on 11/01/16 09: 20; Start 10/30/16 at 09:00 Naloxone HCl (Narcan Inj) 0.4 mg UNSCH PRN IV SEE LABEL COMMENTS; Start at 23:00 Allopurinol (Zyloprim) 100 mg DAILY PO Last administered on 11/01/16 09:19; Start 10/30/16 at 09:00 Clopidogrel Bisulfate (Plavix) 75 mg DAILY PO Last administered on 11/01/16 09 :19; Start 10/30/16 at 09:00 Acetaminophen/ Hydrocodone Bitart ([place] 5-325 Mg) 1 tab Q4H PRN PO PAIN Last administered on 10/31/16 21:01; Start 10/30/16 at 08:45 Lisinopril (Prinivil) 20 mg BID PO Last administered on 10/30/16 09:12; Start 10/30/16 at 09:00; Status Hold Pantoprazole Sodium (Protonix) 20 mg DAILY PO Last administered on 11/01/16 09 :19; Start 10/30/16 at 09:00 Pramipexole Dihydrochloride (Mirapex) 0.25 mg HS PO Last administered on 21:01; Start 10/30/16 at 21:00 Fenofibrate (Tricor) 145 mg HS PO Last administered on 10/31/16 21:01; Start 10/30/16 at 21:00 Dextrose (D50w (Vial) Inj) 50 ml UNSCH PRN IV HYPOGLYCEMIA-SEE COMMENTS; Start 10/30/16 at 08:45 Glucagon (Glucagon Inj) 1 mg UNSCH PRN OTHER HYPOGLYCEMIA-SEE COMMENTS; Start 10/30/16 at 08:45 Insulin Aspart (NovoLOG SUPPLEMENTAL SCALE) 1 ACHS SLIDING SCALE SQ Last administered on 10/31/16 21:04; Start 10/30/16 at 11:00 Diltiazem HCl (Cardizem Cd) 180 mg DAILY@22 PO Last administered on 10/30/16 21:00; Start 10/30/16 at 22:00; Stop 10/31/16 at 10:38; Status DC Furosemide 20 mg 20 mg DAILY IV PUSH Last administered on 11/01/16 09:20; Start 10/30/16 at 14:30 Diltiazem HCl/ Sodium Chloride (Cardizem Inj/NS Inj) 125 ml @ 0 mls/hr TITRATE IV ; Start 10/30/16 at 16:00 Diltiazem HCl (Cardizem Cd) 240 mg DAILY PO ; Start 11/01/16 at 22:00; Stop at 22:00; Status DC Diltiazem HCl (Cardizem) 30 mg ONCE ONCE PO Last administered on 10/31/16 11: 40; Start 10/31/16 at 11:30; Stop 10/31/16 at 11:31; Status DC Diltiazem HCl (Cardizem Cd) 240 mg DAILY@2200 PO Last administered on 21:01; Start 10/31/16 at 22:00 A/P Assessment and Plan 76-year-old female who presented with general weakness/fatigue General weakness/fatigue -Labs reviewed mildly elevated BNP. EKG shows atrial fibrillation with RVR rate range from 110 to 130. Chest x-ray shows mild bilateral pleural effusion. -Fatigue most likely secondary to age of fibrillation with RVR and mild CHF. -Patient is improving with treatment as below. -Physical therapist following and recommended SNF. Atrial fibrillation with RVR -Controlled current regimen. -Continue her current regimen. Mild CHF exacerbation -Creatinine is improving. Good urine output. We'll transition to oral Lasix to 20 mg twice a day. Continue strict ins and outs. Avoid nephrotoxins. Chronic kidney disease -Patient seems to fluctuate. Her creatinine/GFR was reviewed. She is relatively stable. -Continue to monitor currently. -Strict ins and outs. Hypoxia -Improving. At rest while sitting in bed she was 91% on room air. But does desat while talking. -Will do a walk test. Patient was put on home oxygen about 1 week prior from hospitalization. Obstructive sleep apnea -Patient stated that she is suppose to be on CPAP but has not received the equipment from Dr. Mckeon. -Patient told to talk with her primary care physician in regards to getting her equipment. Hypertension -Due to mildly elevated potassium RAH inhibitor held. Continue with home medication. Type 2 diabetes insulin-dependent -Continue with insulin sliding scale. -Blood sugars have ranged from the upper 90s to 170s. Will hold off on long acting insulin. DVT prophylaxis -On Coumadin. Discharge Planning If patient continues to well she can most likely be discharged tomorrow to rehabilitation. Lydia Thurman MD Nov 01, 2016 09:54
--- NOTE | 2016-11-01 12:38 | PD.WCN.NOT ---
Wound Consult Description: Fissure to medial gluteal cleft Communicated with: JUAN [facility]alona [facility], [facility] and Doctor Thurman Recommendation: Please cleanse buttock area with soap and water gently and pat dry. Apply Calazime barrier cream BID and PRN. Please do not spread gluteal fold to far apart when cleaning patient. Continue to turn patient every 2 hours and PRN for comfort. Additional Information: Patient seen on [facility] for evaluation of coccyx wound management. Patient is laying on [facility] bed positioned off bottom to R side. Patient turned to R side with the assistance of Rodríguez MARTINEZ [facility], JUAN Escalona [facility] and travel writer for wound assessment to reveal Fissure to medial gluteal cleft measuring ~10 cm x ~ 0.3 cm x~<0.1cm. Wound etiology is likely moisture.JUAN Arreguin Applied thick layer calazime barrier cream to bilateral buttock and gluteal cleft and left open to air.Patient repositioned to L side with pillows. Sondra Nolan [facility] Nov 01, 2016 12:38
[2016-11-01] MEDS: FUROSEMIDE 20 MG TAB PO SCH (16:48)
[2016-11-01] MEDS ORDERED: DILTIAZEM-CD 240 MG CAP ER PO SCH (22:00)
[2016-11-01] MEDS: FENOFIBRATE 145 MG TAB PO SCH (22:19)
[2016-11-01] MEDS: PRAMIPEXOLE DIHYDROCHLORIDE 0.25 MG TAB PO SCH (22:19)
[2016-11-01] MEDS: DILTIAZEM-CD 240 MG CAP ER PO SCH (22:19)
[2016-11-01] MEDS: ACETAMINOPHEN/HYDROcodone 325 MG/5 MG TAB PO PRN (22:20)
[2016-11-02] VITALS: BP 98/57; PULSE 102; RESP 20; TEMP 98; O2SAT 93
[2016-11-02 01:33] VITALS: PULSE 102
[2016-11-02] MEDS: INSULIN ASPART SUPPLEMENTAL SCALE SQ SCH ×3 (05:28→16:00)
[2016-11-02 07:40] LABS: HEMATOCRIT 37.3 % (35.0-46.0); MEAN CELL VOLUME 80.7 FL (80.0-100.0); MEAN CORPUSCULAR HEMOGLOBIN 25.4 PG (27.0-34.0); MEAN CORPUSCULAR HGB CONC 31.5 % (32.0-36.0); PLATELET COUNT 168 TH/MM3 (150-450); RED BLOOD COUNT 4.62 MIL/MM3 (4.00-5.30); RED CELL DISTRIBUTION WIDTH 18.5 % (11.6-17.2); REVIEW FLAG FINAL; WHITE BLOOD COUNT 6.9 TH/MM3 (4.0-11.0)
[2016-11-02 07:58] LABS: BICARBONATE 35.2 MEQ/L (21.0-32.0); POTASSIUM 4.3 MEQ/L (3.5-5.1)
[2016-11-02 08:00] VITALS: BP 100/55; PULSE 91; RESP 18; TEMP 96.2; O2SAT 92
[2016-11-02] MEDS: CLOPIDOGREL 75 MG TAB PO SCH (09:09)
[2016-11-02] MEDS: PANTOPRAZOLE SOD 20 MG DELAYED RELEASE TAB PO SCH (09:09)
[2016-11-02] MEDS: ACETAMINOPHEN/HYDROcodone 325 MG/5 MG TAB PO PRN (09:09)
[2016-11-02] MEDS: FUROSEMIDE 20 MG TAB PO SCH (09:10)
[2016-11-02] MEDS: SODIUM CHLORIDE 0.9% FLUSH 10 ML FLUSH IV FLUSH SCH (09:10)
[2016-11-02] MEDS: ALLOPURINOL 100 MG TAB PO SCH (09:10)
[2016-11-02 12:00] VITALS: BP 106/64; PULSE 83; RESP 17; TEMP 96.6; O2SAT 94
[2016-11-02] MEDS ORDERED: HYDR-3533 PO (12:14)
[2016-11-02] MEDS ORDERED: CARD240C6 PO (12:14)
[2016-11-02] MEDS ORDERED: FURO20TA PO (12:14)
[2016-11-02 16:00] VITALS: BP 128/66; PULSE 100; RESP 18; TEMP 97.8; O2SAT 93
--- NOTE | 2016-11-02 16:30 | HHI.DS ---
Discharge Summary Admission Date Oct 29, 2016 at 22:53 Discharge Date: Nov 02, 2016 Admitting Diagnosis Generalized weakness, afib with rvr, shortness of breath (1) Chronic atrial fibrillation with RVR ICD Code: I48.2 Diagnosis: Principal (2) CHF exacerbation ICD Code: I50.9 Diagnosis: Principal (3) Generalized weakness ICD Code: R53.1 Diagnosis: Principal (4) Acute hypoxemic respiratory failure ICD Code: J96.01 Diagnosis: Principal (5) Type 2 diabetes mellitus ICD Code: E11.9 Diagnosis: Secondary (6) Chronic anticoagulation ICD Code: Z79.01 Diagnosis: Secondary (7) Hypertension ICD Code: I10 Diagnosis: Secondary (8) History of CHF (congestive heart failure) ICD Code: Z86.79 Diagnosis: Secondary Procedures See hospital course. Brief History - From Admission This is a 76-year-old female past medical history of CHF, atrial fibrillation, on chronic Coumadin due to age of fibrillation/history of DVT, type 2 diabetes insulin-dependent, hospitalization in March 2016 secondary to pneumonia who presented with generalized weakness/fatigue. Patient stated that about 2-3 days ago she wasn't feeling well and felt very fatigued. She stated that she usually has a walker or wheelchair at home and gets up with her walker onto the wheelchair but has not been able to the past 2-3 days. She denies any shortness of breathing, but stated that when she saw 1 week ago she was treated for UTI and they found her to be hypoxic so put her oxygen. When I asked her why they put on oxygen she stated that because her oxygen saturation was low but she was asymptomatic. Was treated with 2 different types of antibiotics for UTI. She denies any urinary symptoms at the moment. Patient denies any fevers or chills. Denies any shortness of breathing, chest pain, less tenderness or dizziness. Denies any focal neurological deficits. All other review symptoms reviewed and all negative. CBC/BMP: 11/02/16 0657 11/02/16 0657 Significant Findings Laboratory Tests Test 10/31/16 10/31/16 11/01/16 11/02/16 06:33 12:32 05:48 06:57 Hemoglobin 11.3 GM/DL 11.1 GM/DL (11.6-15.3) (11.6-15.3) Mean Corpuscular Hemoglobin 25.0 PG 25.3 PG 25.4 PG (27.0-34.0) (27.0-34.0) (27.0-34.0) Mean Corpuscular Hemoglobin 31.0 % 31.1 % 31.5 % Concent (32.0-36.0) (32.0-36.0) (32.0-36.0) Red Cell Distribution Width 18.7 % 18.9 % 18.5 % (11.6-17.2) (11.6-17.2) (11.6-17.2) Carbon Dioxide Level 33.8 MEQ/L 35.9 MEQ/L 35.2 MEQ/L (21.0-32.0) (21.0-32.0) (21.0-32.0) Anion Gap 3 MEQ/L (5-15) 1 MEQ/L (5-15) Blood Urea Nitrogen 38 MG/DL (7-18) 36 MG/DL (7-18) 31 MG/DL (7-18) Creatinine 1.47 MG/DL 1.37 MG/DL 1.26 MG/DL (0.50-1.00) (0.50-1.00) (0.50-1.00) Estimat Glomerular Filtration 35 ML/MIN (>89) 37 ML/MIN (>89) 41 ML/MIN (>89) Rate Random Glucose 107 MG/DL (74-106) Prothrombin Time 26.3 SEC (9.8-11.6) Calcium Level 8.4 MG/DL 8.4 MG/DL (8.5-10.1) (8.5-10.1) Test 11/02/16 15:19 Troponin I LESS THAN 0.02 NG/ML (0.02-0.05) Imaging Last Impressions Chest X-Ray 10/29/162007 Signed Impressions: Service Date/Time: Saturday, October 29, 2016 21:39 - CONCLUSION: Mild bibasilar infiltrate and suspected small left pleural effusion. Blu Bautista MD PE at Discharge GENERAL: In no acute distress CARDIOVASCULAR: Regular rate and rhythm without murmurs, gallops, or rubs. RESPIRATORY: Breath sounds equal bilaterally with bilateral basilar crackles no wheezing or rhonchi noted. No accessory muscle use. GASTROINTESTINAL: Abdomen soft, non-tender, nondistended. MUSCULOSKELETAL: No cyanosis, or edema. BACK: Nontender without obvious deformity. No CVA tenderness. Pt update on day of discharge Follow-up for age of fibrillation with RVR episodes were failure secondary to CHF exacerbation Patient stated that she feels a lot better today. Denies shortness of breathing or cough. She stated that after eating she had some chest pain. She' s describes chest pain is sharp/burning sensation. Lasting for about an hours so far and is resolving on its own. Unsure if it was associated with food but she stated that she did eat a couple hours ago. Denied any nausea vomiting or diaphoresis. Patient seems to be lying down all the time even after eating. Otherwise she denied any palpitation, lightheadedness or dizziness. Denies any trauma to the chest. Patient stated that she is interested in going to [facility]. Reviewed telemetry. Hospital Course 76-year-old female who presented with general weakness/fatigue General weakness/fatigue -Labs reviewed mildly elevated BNP. EKG shows atrial fibrillation with RVR rate range from 110 to 130. Chest x-ray shows mild bilateral pleural effusion. -Fatigue most likely secondary to age of fibrillation with RVR and mild CHF. -Patient is improving with treatment as below. -Physical therapist following and recommended SNF. Atrial fibrillation with RVR -Patient was given Cardizem 180 mg daily. Her weight continue to be mildly over 110 so as an was increased to 240. Sent did well with the regimen. Mild CHF exacerbation -Patient was treated with IV Lasix in which her creatinine improved up hospital course. She had good urine output. She was then transitioned to oral Lasix and did well with oral medication. Chronic kidney disease -Patient seems to fluctuate. Her creatinine/GFR was reviewed. She is relatively stable. -Continue to monitor currently. -Strict ins and outs. Hypoxia -This was most likely secondary to CHF exacerbation. Improved up hospital course. -To be weaned off as tolerated. Obstructive sleep apnea -Patient stated that she is suppose to be on CPAP but has not received the equipment from Dr. Mckeon. -Patient told to talk with her primary care physician in regards to getting her equipment. Hypertension -Due to mildly elevated potassium RAH inhibitor held. Continue with home medication. -Since patient was put on Cardizem her blood pressure was controlled. Type 2 diabetes insulin-dependent -Continue with insulin sliding scale. -Blood sugars have ranged from the upper 90s to 170s so her long-acting insulin was not restarted. -To be adjusted by her primary care physician or in the rehabilitation center. Chronic anticoagulation -Patient was on Coumadin and it was therapeutic. Pt Condition on Discharge: Stable Discharge Disposition: Discharge to SNF Discharge Time: > 30 minutes Discharge Instructions DIET: Follow Instructions for: Heart Healthy Diet, Diabetic Diet Activities you can perform: Regular-No Restrictions Follow up Referrals: Cardiology - 2 Weeks SNF/LOIS/ - Next Day New Medications: Diltiazem CD 24 HR (Cardizem CD 24 HR) 240 Mg Caper 240 MG PO DAILY@2200 atrial fibrillation #30 Ref 0 CAP Furosemide (Furosemide) 20 Mg Tab 20 MG PO BID@,18 re-evaluate the dosage to see if patient can go back to her baseline dosage. CHF #30 Ref 0 TAB Continued Medications: Allopurinol (Zyloprim) 100 Mg Tab 100 MG PO DAILY Gout Days 30 TAB Clopidogrel (Plavix) 75 Mg Tab 75 MG PO DAILY Blood Clot Prevention #30 Ref 0 TAB Fenofibrate (Fenofibrate) 160 Mg Tab 160 MG PO HS #30 Ref 0 TAB Hydrocodone-Acetaminophen (Lortab) 5-325 Mg Tab 1 TAB PO Q4-6H PRN PAIN #20 Ref 0 TAB (This prescription has been renewed) Insulin Aspart Inj (Novolog Inj) 100 Unit/Ml Inj 1 INJECTION SQ ACHS SLIDING SCALE Blood Sugar Management Days 30 INJECTION Pantoprazole (Pantoprazole) 20 Mg Tab 20 MG PO DAILY Reflux #30 Ref 0 TAB Pramipexole (Pramipexole) 0.25 Mg Tab 0.25 MG PO HS Parkinson Disease Mgmt #30 Ref 0 TAB Discontinued Medications: Furosemide (Furosemide) 20 Mg Tab 20 MG PO DAILY #30 Ref 0 TAB Insulin Glargine Inj (Lantus Inj) 1,000 Unit/10 Ml Vial 30 UNITS SQ HS Blood Sugar Management Ref 0 VIAL Lisinopril (Lisinopril) 20 Mg Tab 20 MG PO BID #30 Ref 0 TAB Lydia Thurman MD Nov 02, 2016 16:30
--- NOTE | 2016-11-03 15:58 | EKG ---
Date Performed: 11/02/2016 Time Performed: 12:35:03 PTAGE: 76 years EKG: ATRIAL FIBRILLATION LOW QRS VOLTAGE IN EXTREMITY LEADS Compared to prior tracing no signifi cant change ABNORMAL RHYTHM ECG PREVIOUS TRACING : 10/29/2016 20.04 DOCTOR: Luis A Tilley Interpretating Date/Time 11/03/2016 15:57:16
== END 2016-11-02 17:14 | DRG 293 ==
LOC: NEPE 19:32 → NEDA 22:53 → NEDH 10-30 02:53 → HCIN 10-30 15:16 → N07B 11-01 12:58
PROVIDERS: ADMIT Family Medicine; ATTEND Family Medicine
DX: I13.0 Hypertensive heart and chronic kidney disease with heart failure and stage 1 through stage 4 chronic kidney disease, or unspecified chronic kidney disease (principal); E11.22 Type 2 diabetes mellitus with diabetic chronic kidney disease; Z99.81 Dependence on supplemental oxygen; I48.2 Chronic atrial fibrillation; I50.9 Heart failure, unspecified; I89.0 Lymphedema, not elsewhere classified; N18.9 Chronic kidney disease, unspecified; M19.90 Unspecified osteoarthritis, unspecified site; M94.0 Chondrocostal junction syndrome [Tietze]; K21.9 Gastro-esophageal reflux disease without esophagitis; K64.9 Unspecified hemorrhoids; E78.00 Pure hypercholesterolemia, unspecified; K44.9 Diaphragmatic hernia without obstruction or gangrene; E66.01 Morbid (severe) obesity due to excess calories; M10.9 Gout, unspecified; Z79.01 Long term (current) use of anticoagulants; Z79.4 Long term (current) use of insulin; Z86.718 Personal history of other venous thrombosis and embolism; G47.33 Obstructive sleep apnea (adult) (pediatric); R09.02 Hypoxemia; R23.4 Changes in skin texture
CPT/HCPCS: 51703; 71010; 80048; 80053; 81001; 82550; 82948; 83605; 83690; 83735; 83880; 84443; 84484; 85025; 85027; 85610; 85730; 86140; 87040; 93005; 94620; 96360; J1815; J1940; J7050